=== PATIENT | male | born 1995 | race Caucasian/White ===

== ENCOUNTER 2016-06-29 05:52 | Emergency (ER) | payer SELFPAY ==
[~2016-06-29] VITALS: Ht 172.7 cm; Wt 65.8 kg
[~2016-06-29 05:52] MED LIST: ALBU8.5H4 IH; ALPR0.25 PO; BENZ-13 PO; CEFD300C3 PO; CHLO237L3 TP; DOXY100C2 PO; GUAI5LIQ3 PO; IBP800T PO; LORA-404 PO; LORA-726 PO; MECL25TA3 PO; MUPI15CR10 TP; Minocycline; PRD20T PO; SULF-222 PO; SULF1TAB35 PO; TRAM50TA2 PO
[2016-06-29 07:21] LABS: BASOPHILS # (AUTO) 0.1 10^3/uL (0.0-0.1); BASOPHILS % (AUTO) 1 % (0-10); EOSINOPHILS # (AUTO) 0.3 10^3/uL (0.0-0.3); EOSINOPHILS % (AUTO) 2 % (0-10); LYMPHOCYTES % (AUTO) 25 % (12-44); MEAN CORPUSCULAR HEMOGLOBIN 29 PG (25-34); MEAN CORPUSCULAR HGB CONC 34 G/DL (32-36); MEAN CORPUSCULAR VOLUME 86 FL (80-99); MEAN PLATELET VOLUME 9.4 FL (7.4-10.4); MONOCYTES # (AUTO) 1.2 X 10^3 (0.0-1.0); MONOCYTES % (AUTO) 9 % (0-12); NEUTROPHILS # (AUTO) 7.7 X 10^3 (1.8-7.8); NEUTROPHILS % (AUTO) 63 % (42-75); PLATELET COUNT 263 10^3/uL (130-400); RED BLOOD COUNT 5.42 10^6/uL (4.35-5.85); RED CELL DISTRIBUTION WIDTH 12.4 % (10.0-14.5); WHITE BLOOD COUNT 12.2 10^3/uL (4.3-11.0)
[2016-06-29 07:34] LABS: ALANINE AMINOTRANSFERASE 25 U/L (0-55); ALBUMIN 4.2 G/DL (3.2-4.5); ANION GAP 9 MMOL/L (5-14); ASPARTATE AMINO TRANSFERASE 17 U/L (5-34); BILIRUBIN,TOTAL 0.4 MG/DL (0.1-1.0); BLOOD UREA NITROGEN 16 MG/DL (7-18); BUN/CREATININE RATIO 19; CALCIUM 9.4 MG/DL (8.5-10.1); CARBON DIOXIDE 25 MMOL/L (21-32); CHLORIDE 104 MMOL/L (98-107); CREATININE SERUM 0.84 MG/DL (0.60-1.30); GFR ESTIMATED > 60; GLUCOSE 95 MG/DL (70-105); POTASSIUM 4.8 MMOL/L (3.6-5.0); SODIUM 138 MMOL/L (135-145); TOTAL PROTEIN 6.8 G/DL (6.4-8.2)
[2016-06-29 07:44] LABS: EOSINOPHILS % (MANUAL) 4 %; LYMPHOCYTES % (MANUAL) 30 %; NEUTROPHILS % (MANUAL) 53 %; REACTIVE LYMPHOCYTES 2 %
--- NOTE | 2016-06-29 07:53 | ED Lower Extremity ---
General Chief Complaint: Lower Extremity Stated Complaint: LEFT LEG PAIN FROM KNEE DOWN TO TOES Nursing Triage Note: PT TO ED 5 W/ C/O LT LOWER EXTREMITY PAIN FROM KNEE TO ANKLE ONSET AFTER BEING BIT BY A "FULL GROWN DEER TICK". NO OTHER KNOWN INJURY Nursing Sepsis Screen: No Definite Risk Source: patient Exam Limitations: no limitations History of Present Illness Time seen by provider: 07:47 Initial Comments The patient is a 21-year-old white male who presents complaining of pain from the left knee to the toes. There is been no injury. The pain began yesterday. He had previously been out in the [place] [employer] near [place]. He had found an adult tick on the medial aspect of his left leg just above the knee. There is a small area of their of redness and itching. He believes this to been a deer tick. He relates to fearing Lyme disease. Onset: last week Pain/Injury Location: left leg Method of Injury: unknown Allergies and Home Medications Allergies Coded Allergies: marijuana (Verified Allergy, Mild, 10/28/14) topiramate (Verified Allergy, Mild, 06/14/15) Home Medications Meclizine HCl 25 Mg Tablet, 25 MG PO Q6H PRN for VERTIGO, #20 Ref 0 Prescribed by: JACOB FARIAS on 05/01/152107 Sulfamethoxazole/Trimethoprim 1 Each Tablet, 1 EACH PO BID, #14 Prescribed by: DEMI HAYNES on 06/14/15 1944 Constitutional: see HPI EENTM: no symptoms reported Respiratory: no symptoms reported Cardiovascular: no symptoms reported Gastrointestinal: no symptoms reported Genitourinary: no symptoms reported Musculoskeletal: muscle pain Skin: no symptoms reported Psychiatric/Neurological: No Symptoms Reported Past Rjqfhlr-Xekrig-Ridtvc Hx Patient Social History Alcohol Use: Denies Use Recreational Drug Use: No Smoking Status: Current Everyday Smoker Type Used: Cigarettes, Electronic/Vapor 2nd Hand Smoke Exposure: Yes Recent Foreign Travel: No Contact w/Someone Who Travel: No Recent Infectious Disease Expo: No Seasonal Allergies Seasonal Allergies: No Surgeries HX Surgeries: Yes (HYDROCELE.) Respiratory Hx Respiratory Disorders: No Cardiovascular Hx Cardiac Disorders: No Neurological Hx Neurological Disorders: No Neurological Disorders: Headaches /Migraines Reproductive System Hx Reproductive Disorders: No Sexually Transmitted Disease: No Genitourinary Hx Genitourinary Disorders: No Gastrointestinal Hx Gastrointestinal Disorders: No Musculoskeletal Hx Musculoskeletal Disorders: No Endocrine Hx Endocrine Disorders: No HEENT HX ENT Disorders: No Cancer Hx Cancer: No Psychosocial Hx Psychiatric Problems: No Integumentary HX Skin/Integumentary Disorder: Yes (MRSA HX, BACK BROKE OUT SORES) Skin/Integumentary Disorders: Recent Skin Changes Blood Transfusions Hx Blood Disorders: No Family Medical History Significant Family History: No Pertinent Family Hx Physical Exam Vital Signs Vital Sign - Last 12Hours 06/29/16 06:35 Temp 98.1 Pulse 86 Resp 18 B/P (MAP) 124/91 Pulse Ox 97 O2 Delivery Room Air Capillary Refill : Less Than 3 Seconds General Appearance: WD/WN, no apparent distress HEENT: normal ENT inspection Cardiovascular: normal peripheral pulses, regular rate, rhythm, no edema, no gallop, no JVD, no murmur Respiratory: chest non-tender, lungs clear, normal breath sounds, no respiratory distress, no accessory muscle use Comments There is a small area of erythema with a central puncture just above the left knee on the medial thigh. This is consistent with a bite. There is no tenderness to palpation no erythema or swelling of the left leg. Progress/Results/Core Measures Results/Orders Lab Results Laboratory Tests Test 06/29/16 07:02 Range/Units White Blood Count 12.2 H 4.3-11.0 10^3/uL Red Blood Count 5.42 4.35-5.85 10^6/uL Hemoglobin 15.9 13.3-17.7 G/DL Hematocrit 47 40-54 % Mean Corpuscular Volume 86 80-99 FL Mean Corpuscular Hemoglobin 29 25-34 PG Mean Corpuscular Hemoglobin Concent 34 32-36 G/DL Red Cell Distribution Width 12.4 10.0-14.5 % Platelet Count 263 130-400 10^3/uL Mean Platelet Volume 9.4 7.4-10.4 FL Neutrophils (%) (Auto) 63 42-75 % Lymphocytes (%) (Auto) 25 12-44 % Monocytes (%) (Auto) 9 0-12 % Eosinophils (%) (Auto) 2 0-10 % Basophils (%) (Auto) 1 0-10 % Neutrophils # (Auto) 7.7 1.8-7.8 X 10^3 Lymphocytes # (Auto) 3.0 1.0-4.0 X 10^3 Monocytes # (Auto) 1.2 H 0.0-1.0 X 10^3 Eosinophils # (Auto) 0.3 0.0-0.3 10^3/uL Basophils # (Auto) 0.1 0.0-0.1 10^3/uL Neutrophils % (Manual) 53 % Lymphocytes % (Manual) 30 % Monocytes % (Manual) 11 % Eosinophils % (Manual) 4 % Reactive Lymphocytes 2 % Blood Morphology Comment N Sodium Level 138 135-145 MMOL/L Potassium Level 4.8 3.6-5.0 MMOL/L Chloride Level 104 98-107 MMOL/L Carbon Dioxide Level 25 21-32 MMOL/L Anion Gap 9 5-14 MMOL/L Blood Urea Nitrogen 16 7-18 MG/DL Creatinine 0.84 0.60-1.30 MG/DL Estimat Glomerular Filtration Rate > 60 BUN/Creatinine Ratio 19 Glucose Level 95 70-105 MG/DL Calcium Level 9.4 8.5-10.1 MG/DL Total Bilirubin 0.4 0.1-1.0 MG/DL Aspartate Amino Transf (AST/SGOT) 17 5-34 U/L Alanine Aminotransferase (ALT/SGPT) 25 0-55 U/L Alkaline Phosphatase 48 40-136 U/L Total Protein 6.8 6.4-8.2 G/DL Albumin 4.2 3.2-4.5 G/DL My Orders Orders - GUY MAYORGA MD Cbc With Automated Diff (06/29/16 06:49) Comprehensive Metabolic Panel (06/29/16 06:49) Manual Differential (06/29/16 07:02) Vital Signs/I&O Vital Sign - Last 12Hours 06/29/16 06:35 Temp 98.1 Pulse 86 Resp 18 B/P (MAP) 124/91 Pulse Ox 97 O2 Delivery Room Air Blood Pressure Mean: 102 Departure Impression Impression: Primary Impression: tick bite Disposition: 01 HOME, SELF-CARE Condition: Stable/Unchanged Departure-Patient Inst. Decision time for Depature: 07:52 Referrals: [facility] (PCP/Family) Primary Care Physician Add. Discharge Instructions: All discharge instructions reviewed with patient and/or family. Voiced understanding. Cortisone 10 cream to the bite area will be useful in relieving itching. Use ibuprofen 600 mg 4 times daily or naproxen 440 mg twice daily for pain. GUY MAYORGA MD June 29, 2016 07:53
[2016-06-29] MEDS ORDERED: IBUPROFEN 600 MG (MOTRIN) TAB PO ONE (08:00)
[2016-06-29 08:12] VITALS: BP 124/91
== END 2016-06-29 08:12 | disposition home or self-care (01) ==
LOC: EDUNIT# 05:52 → ER 05:54
DX: S80.862A Insect bite (nonvenomous), left lower leg, initial encounter (principal); F17.210 Nicotine dependence, cigarettes, uncomplicated; W57.XXXA Bitten or stung by nonvenomous insect and other nonvenomous arthropods, initial encounter; Y92.838 Other recreation area as the place of occurrence of the external cause; Y99.8 Other external cause status
CPT/HCPCS: 36415; 80053; 85007; 85027; 99282

== ENCOUNTER 2016-08-03 01:31 | Emergency (ER) | payer SELFPAY ==
[~2016-08-03] VITALS: Ht 172.7 cm; Wt 65.8 kg
--- NOTE | 2016-08-03 01:45 | ED Lower Extremity ---
General Chief Complaint: Lower Extremity Stated Complaint: LEFT ANKLE INJURY Nursing Triage Note: c/o ankle pain after roller skating Nursing Sepsis Screen: No Definite Risk Source: patient History of Present Illness Time seen by provider: 01:40 Initial Comments PT WAS ROLLERSKATING BACKWARDS AT THE [place]ATING [place] AND TWISTED LEFT ANKLE AND WENT DOWN, LANDING ON LEFT ANKLE OCCURRED EARLIER THIS EVENING AROUND 2100 TONIGHT NO PARESTHESIAS OR MOTOR DEFICITS NO OTHER INJURIES HAS SPRAINED THIS ANKLE IN THE PAST, BUT NO FRACTURES OR SURGERIES Allergies and Home Medications Allergies Coded Allergies: marijuana (Verified Allergy, Mild, 10/28/14) topiramate (Verified Allergy, Mild, 06/14/15) Home Medications No Active Prescriptions or Reported Meds Constitutional: no symptoms reported Musculoskeletal: see HPI Skin: no symptoms reported Psychiatric/Neurological: No Symptoms Reported Past Skvxdim-Ubtmhb-Kqmidw Hx Patient Social History Alcohol Use: Denies Use Recreational Drug Use: No Smoking Status: Current Everyday Smoker Type Used: Cigarettes, Electronic/Vapor 2nd Hand Smoke Exposure: Yes Recent Foreign Travel: No Contact w/Someone Who Travel: No Recent Infectious Disease Expo: No Seasonal Allergies Seasonal Allergies: No Surgeries HX Surgeries: Yes (HYDROCELE.) Respiratory Hx Respiratory Disorders: No Cardiovascular Hx Cardiac Disorders: No Neurological Hx Neurological Disorders: Yes Neurological Disorders: Headaches /Migraines Reproductive System Hx Reproductive Disorders: No Sexually Transmitted Disease: No Genitourinary Hx Genitourinary Disorders: No Gastrointestinal Hx Gastrointestinal Disorders: No Musculoskeletal Hx Musculoskeletal Disorders: No Endocrine Hx Endocrine Disorders: No HEENT HX ENT Disorders: No Cancer Hx Cancer: No Psychosocial Hx Psychiatric Problems: No Integumentary HX Skin/Integumentary Disorder: Yes (MRSA HX, BACK BROKE OUT SORES) Skin/Integumentary Disorders: Recent Skin Changes Blood Transfusions Hx Blood Disorders: No Family Medical History Significant Family History: No Pertinent Family Hx Physical Exam Vital Signs Vital Sign - Last 12Hours 08/03/16 01:36 Temp 98.2 Pulse 88 Resp 18 B/P (MAP) 127/79 Pulse Ox 98 Capillary Refill : Less Than 3 Seconds General Appearance: WD/WN, no apparent distress, other (PT HAS LEFT ANKLE WRAPPED IN AMANDA WRAP PRIOR TO ARRIVAL) HEENT: PERRL/EOMI Legs: left leg normal inspection Knees: left knee normal inspection Ankles: left ankle bone tenderness, left ankle limited range of motion, left ankle pain, left ankle soft tissue tenderness, left ankle swelling Feet: left foot normal inspection Neurologic/Tendon: normal sensation, normal motor functions, normal tendon functions 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, no motor/sensory deficits, alert, normal mood/affect, oriented x 3 Skin: normal color, warm/dry, tattoos/piercings Splinting and Joint Reduction : Splints: Air Stirrup [place] Progress/Results/Core Measures Results/Orders My Orders Orders - MIKALA LATHAM DO Ankle, Left, 3 Views (08/03/16 01:39) Vital Signs/I&O Vital Sign - Last 12Hours 08/03/16 01:36 Temp 98.2 Pulse 88 Resp 18 B/P (MAP) 127/79 Pulse Ox 98 Blood Pressure Mean: 95 Diagnostic Imaging Comments XRAYS LEFT ANKLE--NO ACUTE PROCESS, PENDING RADIOLOGIST REVIEW Reviewed: Reviewed by Me Departure Impression Impression: Primary Impression: Left ankle sprain Disposition: 01 HOME, SELF-CARE Condition: Stable Departure-Patient Inst. Referrals: [facility] (PCP/Family) Primary Care Physician Patient Instructions: AIRCAST, Ankle Sprain (DC) Add. Discharge Instructions: ICE TO AREA AT 20 MINUTE INTERVALS AMANDA WRAP AND SPLINT NEEDED FOR COMFORT TYLENOL AND MOTRIN NEEDED FOR PAIN FOLLOW UP WITH YOUR DR IN 1 WEEK IF NO BETTER All discharge instructions reviewed with patient and/or family. Voiced understanding. Scripts No Active Prescriptions or Reported Meds MIKALA LATHAM DO Aug 03, 2016 01:45
[2016-08-03 02:02] VITALS: BP 127/79
--- NOTE | 2016-08-03 07:44 | Diagnostic Imaging Report ---
INDICATION: Injury with pain. FINDINGS: Soft tissue swelling about the ankle laterally present. The distal fibula, the medial, lateral, and posterior malleoli, the plafond and talar dome are all intact. The base of the fifth metatarsal is intact. The remaining hind and mid foot visualized unremarkable. IMPRESSION: Swelling, however no fracture demonstrated. Dictated by: Dictated on workstation # [id number]
--- OUTSIDE RECORDS SUMMARY | 2016-08-05 16:20 | XMS REPORT | Continuity of Care Document ---
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 05/11/2009 MORRO VALDIVIA APRN 737.30 SCOLIOSIS 05/11/2009 724.2 Lower Back Pain 05/11/2009 737.30 SCOLIOSIS 05/11/2009 724.2 Lower Back Pain 05/11/2009 737.30 SCOLIOSIS 05/11/2009 724.2 Lower Back Pain 05/11/2009 737.30 SCOLIOSIS 05/11/2009 724.2 Lower Back Pain 05/11/2009 737.30 SCOLIOSIS 05/11/2009 JUSTUS FISHER EEL, PJ A 724.2 Lower Back Pain 05/11/2009 JUSTUS DEGROOT, PJ A 737.30 SCOLIOSIS 05/11/2009 ABRAMS DO, JOSIE K 724.2 Lower Back Pain 05/11/2009 ABRAMS DO, JOSIE K 737.30 SCOLIOSIS 05/11/2009 ABRAMS DO, JOSIE K 724.2 Lower Back Pain 05/11/2009 ABRAMS DO, JOSIE K 737.30 SCOLIOSIS 05/11/2009 ABRAMS DO, JOSIE K 724.2 Lower Back Pain 05/11/2009 ABRAMS DO, JOSIE K 737.30 SCOLIOSIS 05/11/2009 MARVIN FISHER EEL, LUI R 724.2 Lower Back Pain 05/11/2009 MARVIN FISHER EEL, LUI R 737.30 SCOLIOSIS 05/11/2009 ABRAMS DO, JOSIE K 724.2 Lower Back Pain 05/11/2009 ABRAMS DO, JOSIE K 737.30 SCOLIOSIS 05/11/2009 AUDIE STACK APRN 724.2 Lower Back Pain 05/11/2009 AUDIE STACK APRN 737.30 SCOLIOSIS 05/11/2009 AUDEI STACK APRN 724.2 Lower Back Pain 05/11/2009 AUDIE STACK APRN T 737.30 SCOLIOSIS 05/11/2009 KWABENA KEY MD 724.2 Lower Back Pain 05/11/2009 KWABENA KEY MD 737.30 SCOLIOSIS 05/22/2009 JUSTUS DEGROOT PJ A 786.09 Respiratory Abnormalities, Other 05/22/2009 786.09 Respiratory Abnormalities, Other 05/22/2009 786.09 Respiratory Abnormalities, Other 05/22/2009 786.09 Respiratory Abnormalities, Other 05/22/2009 786.09 Respiratory Abnormalities, Other 05/22/2009 ABRAMS DO, JOSIE K 786.09 Respiratory Abnormalities, Other 05/22/2009 MORRO VALDIVIA APRN R 786.09 Respiratory Abnormalities, Other 05/22/2009 786.09 Respiratory Abnormalities, Other 05/22/2009 786.09 Respiratory Abnormalities, Other 05/22/2009 786.09 Respiratory Abnormalities, Other 05/22/2009 786.09 Respiratory Abnormalities, Other 05/22/2009 IFRAH JEROME APRNYL A 786.09 Respiratory Abnormalities, Other 05/22/2009 ABRAMS DO, JOSIE K 786.09 Respiratory Abnormalities, Other 05/22/2009 ABRAMS DO, JOSIE K 786.09 Respiratory Abnormalities, Other 05/22/2009 ABRAMS DO, JOSIE K 786.09 Respiratory Abnormalities, Other 05/22/2009 MARVIN DEGROOT LUI R 786.09 Respiratory Abnormalities, Other 05/22/2009 ABRAMS DO, JOISE K 786.09 Respiratory Abnormalities, Other 05/22/2009 AUDIE STACK APRN 786.09 Respiratory Abnormalities, Other 05/22/2009 AUDIE STACK APRN 786.09 Respiratory Abnormalities, Other 05/22/2009 KWABENA KEY MD 786.09 Respiratory Abnormalities, Other 05/29/2009 IFRAH JEROME APRNYL A 461.9 Sinusitis Acute 05/29/2009 461.9 Sinusitis Acute 05/29/2009 461.9 Sinusitis Acute 05/29/2009 461.9 Sinusitis Acute 05/29/2009 461.9 Sinusitis Acute 05/29/2009 ABRAMS DO, JOSEI K 461.9 Sinusitis Acute 05/29/2009 MORRO VALDIVIA APRN 461.9 Sinusitis Acute 05/29/2009 461.9 Sinusitis Acute 05/29/2009 461.9 Sinusitis Acute 05/29/2009 461.9 Sinusitis Acute 05/29/2009 461.9 Sinusitis Acute 05/29/2009 IFRAH JEROME APRNYL A 461.9 Sinusitis Acute 05/29/2009 ABRAMS DO, JOSIE K 461.9 Sinusitis Acute 05/29/2009 ABRAMS DO, JOSIE K 461.9 Sinusitis Acute 05/29/2009 ABRAMS DO, JOSIE K 461.9 Sinusitis Acute 05/29/2009 WESLEY WONG APRNINA R 461.9 Sinusitis Acute 05/29/2009 ABRAMS DO, JOSIE K 461.9 Sinusitis Acute 05/29/2009 AUDIE STACK APRN 461.9 Sinusitis Acute 05/29/2009 AUDIE STACK APRN 461.9 Sinusitis Acute 05/29/2009 KWABENA KEY MD 461.9 Sinusitis Acute 06/14/2009 JUSTUS DEGROOT, PJ A 535.00 Acute Gastritis, Without Mention Of Hemorrhage 06/14/2009 535.00 Acute Gastritis, Without Mention Of Hemorrhage 06/14/2009 535.00 Acute Gastritis, Without Mention Of Hemorrhage 06/14/2009 535.00 Acute Gastritis, Without Mention Of Hemorrhage 06/14/2009 535.00 Acute Gastritis, Without Mention Of Hemorrhage 06/14/2009 ABRAMS DO, JOSIE K 535.00 Acute Gastritis, Without Mention Of Hemorrhage 06/14/2009 VALDIVIA FISHER EEL, MORRO R 535.00 Acute Gastritis, Without Mention Of Hemorrhage 06/14/2009 535.00 Acute Gastritis, Without Mention Of Hemorrhage 06/14/2009 535.00 Acute Gastritis, Without Mention Of Hemorrhage 06/14/2009 535.00 Acute Gastritis, Without Mention Of Hemorrhage 06/14/2009 535.00 Acute Gastritis, Without Mention Of Hemorrhage 06/14/2009 PJ JEROME APRN A 535.00 Acute Gastritis, Without Mention Of Hemorrhage 06/14/2009 ABRAMS DO, JOSIE K 535.00 Acute Gastritis, Without Mention Of Hemorrhage 06/14/2009 ABRAMS DO, JOSIE K 535.00 Acute Gastritis, Without Mention Of Hemorrhage 06/14/2009 ABRAMS DO, JOSIE K 535.00 Acute Gastritis, Without Mention Of Hemorrhage 06/14/2009 MARVIN FISHER EEL, LUI R 535.00 Acute Gastritis, Without Mention Of Hemorrhage 06/14/2009 ABRAMS DO, JOSIE K 535.00 Acute Gastritis, Without Mention Of Hemorrhage 06/14/2009 AUDIE STACK APRN 535.00 Acute Gastritis, Without Mention Of Hemorrhage 06/14/2009 AUDIE STACK APRN 535.00 Acute Gastritis, Without Mention Of Hemorrhage 06/14/2009 KWABENA KEY MD 535.00 Acute Gastritis, Without Mention Of Hemorrhage 06/19/2009 PJ JEROME APRN A 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, Due To Oils And Greases 06/19/2009 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, Due To Oils And Greases 06/19/2009 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, Due To Oils And Greases 06/19/2009 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, Due To Oils And Greases 06/19/2009 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, Due To Oils And Greases 06/19/2009 ABRAMS DO, JOSIE K 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, Due To Oils And Greases 06/19/2009 MORRO VALDIVIA APRN R 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, Due To Oils And Greases 06/19/2009 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, Due To Oils And Greases 06/19/2009 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, Due To Oils And Greases 06/19/2009 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, Due To Oils And Greases 06/19/2009 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, Due To Oils And Greases 06/19/2009 PJ JEROME APRN 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, Due To Oils And Greases 06/19/2009 ABRAMS DOTONYA K 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, Due To Oils And Greases 06/19/2009 ABRAMS DOTONYA K 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, Due To Oils And Greases 06/19/2009 ABRAMS DOTONYA K 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, Due To Oils And Greases 06/19/2009 LUI WONG APRN R 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, Due To Oils And Greases 06/19/2009 ABRAMS JOSIE RODRIGUEZ K 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, Due To Oils And Greases 06/19/2009 AUDIE STACK APRN 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, Due To Oils And Greases 06/19/2009 AUDIE STACK APRN 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, Due To Oils And Greases 06/19/2009 KWABENA KEY MD 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, Due To Oils And Greases 06/24/2009 PJ JEROME APRN 057.0 Erythema Infectiosum [fifth Disease] 06/24/2009 057.0 Erythema Infectiosum [fifth Disease] 06/24/2009 057.0 Erythema Infectiosum [fifth Disease] 06/24/2009 057.0 Erythema Infectiosum [fifth Disease] 06/24/2009 057.0 Erythema Infectiosum [fifth Disease] 06/24/2009 ABRAMS DO, JOSIE K 057.0 Erythema Infectiosum [fifth Disease] 06/24/2009 MORRO VALDIVIA APRN R 057.0 Erythema Infectiosum [fifth Disease] 06/24/2009 057.0 Erythema Infectiosum [fifth Disease] 06/24/2009 057.0 Erythema Infectiosum [fifth Disease] 06/24/2009 057.0 Erythema Infectiosum [fifth Disease] 06/24/2009 057.0 Erythema Infectiosum [fifth Disease] 06/24/2009 PJ JEROME APRN A 057.0 Erythema Infectiosum [fifth Disease] 06/24/2009 ABRAMS DO, JOSIE K 057.0 Erythema Infectiosum [fifth Disease] 06/24/2009 ABRAMS DO, JOSIE K 057.0 Erythema Infectiosum [fifth Disease] 06/24/2009 ABRAMS DO, JOSIE K 057.0 Erythema Infectiosum [fifth Disease] 06/24/2009 LUI WONG APRN 057.0 Erythema Infectiosum [fifth Disease] 06/24/2009 ABRAMS DO, JOSIE K 057.0 Erythema Infectiosum [fifth Disease] 06/24/2009 AUDIE STACK APRN 057.0 Erythema Infectiosum [fifth Disease] 06/24/2009 AUDIE STACK APRN 057.0 Erythema Infectiosum [fifth Disease] 06/24/2009 KWABENA KEY MD 057.0 Erythema Infectiosum [fifth Disease] 10/04/2009 PJ JEROME APRN A 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 10/04/2009 PJ JREOME APRN 919.4 Superficial Injury Of Other, Multiple, And Unspecified Sites, Insect Bite, Nonvenomous, Without Mention Of Infection 10/04/2009 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 10/04/2009 919.4 Superficial Injury Of Other, Multiple, And Unspecified Sites , Insect Bite, Nonvenomous, Without Mention Of Infection 10/04/2009 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 10/04/2009 919.4 Superficial Injury Of Other, Multiple, And Unspecified Sites , Insect Bite, Nonvenomous, Without Mention Of Infection 10/04/2009 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 10/04/2009 919.4 Superficial Injury Of Other, Multiple, And Unspecified Sites , Insect Bite, Nonvenomous, Without Mention Of Infection 10/04/2009 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 10/04/2009 919.4 Superficial Injury Of Other, Multiple, And Unspecified Sites , Insect Bite, Nonvenomous, Without Mention Of Infection 10/04/2009 TONY ABRAMS DOA K 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 10/04/2009 TONY ABRAMS DOA K 919.4 Superficial Injury Of Other, Multiple, And Unspecified Sites, Insect Bite, Nonvenomous, Without Mention Of Infection 10/04/2009 MARSHALL VALDIVIA APRNIA R 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 10/04/2009 MORRO VALDIVIA APRN R 919.4 Superficial Injury Of Other, Multiple , And Unspecified Sites, Insect Bite, Nonvenomous, Without Mention Of Infection 10/04/2009 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 10/04/2009 919.4 Superficial Injury Of Other, Multiple, And Unspecified Sites , Insect Bite, Nonvenomous, Without Mention Of Infection 10/04/2009 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 10/04/2009 919.4 Superficial Injury Of Other, Multiple, And Unspecified Sites , Insect Bite, Nonvenomous, Without Mention Of Infection 10/04/2009 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 10/04/2009 919.4 Superficial Injury Of Other, Multiple, And Unspecified Sites , Insect Bite, Nonvenomous, Without Mention Of Infection 10/04/2009 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 10/04/2009 919.4 Superficial Injury Of Other, Multiple, And Unspecified Sites , Insect Bite, Nonvenomous, Without Mention Of Infection 10/04/2009 JUSTUS FISHER EEL, PJ A 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 10/04/2009 JUSTUS FISHER EEL, PJ A 919.4 Superficial Injury Of Other, Multiple, And Unspecified Sites, Insect Bite, Nonvenomous, Without Mention Of Infection 10/04/2009 TONY ABRAMS DOA K 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 10/04/2009 TONY ABRAMS DOA K 919.4 Superficial Injury Of Other, Multiple, And Unspecified Sites, Insect Bite, Nonvenomous, Without Mention Of Infection 10/04/2009 JOSIE ABRAMS DO K 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 10/04/2009 ABRAMS TONY RODRIGUEZA K 919.4 Superficial Injury Of Other, Multiple, And Unspecified Sites, Insect Bite, Nonvenomous, Without Mention Of Infection 10/04/2009 JOSIE ABRAMS DO K 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 10/04/2009 ABRAMS TONY RODRIGUEZA K 919.4 Superficial Injury Of Other, Multiple, And Unspecified Sites, Insect Bite, Nonvenomous, Without Mention Of Infection 10/04/2009 MARVIN DEGROOT, LUI R 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 10/04/2009 WESLEY WONG APRNINA R 919.4 Superficial Injury Of Other, Multiple, And Unspecified Sites, Insect Bite, Nonvenomous, Without Mention Of Infection 10/04/2009 JOSIE ABRAMS DO K 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 10/04/2009 JOSIE ABRAMS DO K 919.4 Superficial Injury Of Other, Multiple, And Unspecified Sites, Insect Bite, Nonvenomous, Without Mention Of Infection 10/04/2009 AUDIE STACK APRN 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 10/04/2009 AUDIE STACK APRN 919.4 Superficial Injury Of Other, Multiple, And Unspecified Sites, Insect Bite, Nonvenomous, Without Mention Of Infection 10/04/2009 AUDIE STACK APRN 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 10/04/2009 AUDIE STACK APRN 919.4 Superficial Injury Of Other, Multiple, And Unspecified Sites, Insect Bite, Nonvenomous, Without Mention Of Infection 10/04/2009 KWABENA KEY MD 427.39 OTHER SPECIFIED CONGENITAL ANOMALIES OF SKIN 10/04/2009 KWABENA KEY MD 499.4 Superficial Injury Of Other, Multiple, And Unspecified Sites, Insect Bite, Nonvenomous, Without Mention Of Infection 10/06/2009 PJ JEROME APRN 682.9 Other Cellulitis And Abscess, Unspecified Site 10/06/2009 682.9 Other Cellulitis And Abscess, Unspecified Site 10/06/2009 682.9 Other Cellulitis And Abscess, Unspecified Site 10/06/2009 682.9 Other Cellulitis And Abscess, Unspecified Site 10/06/2009 682.9 Other Cellulitis And Abscess, Unspecified Site 10/06/2009 TONY ABRAMS DOA K 682.9 Other Cellulitis And Abscess, Unspecified Site 10/06/2009 MORRO VALDIVIA APRN R 682.9 Other Cellulitis And Abscess, Unspecified Site 10/06/2009 682.9 Other Cellulitis And Abscess, Unspecified Site 10/06/2009 682.9 Other Cellulitis And Abscess, Unspecified Site 10/06/2009 682.9 Other Cellulitis And Abscess, Unspecified Site 10/06/2009 682.9 Other Cellulitis And Abscess, Unspecified Site 10/06/2009 PJ JEROME APRN A 682.9 Other Cellulitis And Abscess, Unspecified Site 10/06/2009 TONY ABRAMS DOA K 682.9 Other Cellulitis And Abscess, Unspecified Site 10/06/2009 TONY ABRAMS DOA K 682.9 Other Cellulitis And Abscess, Unspecified Site 10/06/2009 JOSE ALBERTO RODRIGUEZ JOSIE K 682.9 Other Cellulitis And Abscess, Unspecified Site 10/06/2009 LUI WONG APRN R 682.9 Other Cellulitis And Abscess, Unspecified Site 10/06/2009 TONY ABRAMS DOA K 682.9 Other Cellulitis And Abscess, Unspecified Site 10/06/2009 AUDIE STACK APRN 682.9 Other Cellulitis And Abscess, Unspecified Site 10/06/2009 AUDIE STACK APRN 682.9 Other Cellulitis And Abscess, Unspecified Site 10/06/2009 KWABENA KEY MD 682.9 Other Cellulitis And Abscess, Unspecified Site 10/20/2009 PJ JEROME APRN A 789.00 Abdominal Pain Unspecified Site 10/20/2009 789.00 Abdominal Pain Unspecified Site 10/20/2009 789.00 Abdominal Pain Unspecified Site 10/20/2009 789.00 Abdominal Pain Unspecified Site 10/20/2009 789.00 Abdominal Pain Unspecified Site 10/20/2009 TONY ABRAMS DOA K 789.00 Abdominal Pain Unspecified Site 10/20/2009 MORRO VALDIVIA APRN 789.00 Abdominal Pain Unspecified Site 10/20/2009 789.00 Abdominal Pain Unspecified Site 10/20/2009 789.00 Abdominal Pain Unspecified Site 10/20/2009 789.00 Abdominal Pain Unspecified Site 10/20/2009 789.00 Abdominal Pain Unspecified Site 10/20/2009 PJ JEROME APRN A 789.00 Abdominal Pain Unspecified Site 10/20/2009 ABRAMS DO, JOSIE K 789.00 Abdominal Pain Unspecified Site 10/20/2009 ABRAMS DO, JOSIE K 789.00 Abdominal Pain Unspecified Site 10/20/2009 ABRAMS DO, JOSIE K 789.00 Abdominal Pain Unspecified Site 10/20/2009 LUI WONG APRN R 789.00 Abdominal Pain Unspecified Site 10/20/2009 ABRAMS DO, JOSIE K 789.00 Abdominal Pain Unspecified Site 10/20/2009 AUDIE STACK APRN 789.00 Abdominal Pain Unspecified Site 10/20/2009 AUDIE STACK APRN 789.00 Abdominal Pain Unspecified Site 10/20/2009 KWABENA KEY MD 789.00 Abdominal Pain Unspecified Site 11/06/2009 PJ JEROME APRN A 787.01 Nausea With Vomiting 11/06/2009 787.01 Nausea With Vomiting 11/06/2009 787.01 Nausea With Vomiting 11/06/2009 787.01 Nausea With Vomiting 11/06/2009 787.01 Nausea With Vomiting 11/06/2009 ABRAMS DO, JOSIE K 787.01 Nausea With Vomiting 11/06/2009 MORRO VALDIVIA APRN 787.01 Nausea With Vomiting 11/06/2009 787.01 Nausea With Vomiting 11/06/2009 787.01 Nausea With Vomiting 11/06/2009 787.01 Nausea With Vomiting 11/06/2009 787.01 Nausea With Vomiting 11/06/2009 IFRAH JEROME APRNYL A 787.01 Nausea With Vomiting 11/06/2009 ABRAMS DO, JOSIE K 787.01 Nausea With Vomiting 11/06/2009 ABRAMS DO, JOSIE K 787.01 Nausea With Vomiting 11/06/2009 ABRAMS DO, JOSIE K 787.01 Nausea With Vomiting 11/06/2009 WESLEY WONG APRNINA R 787.01 Nausea With Vomiting 11/06/2009 ABRAMS DO, JOSIE K 787.01 Nausea With Vomiting 11/06/2009 AUDIE STACK APRN 787.01 Nausea With Vomiting 11/06/2009 AUDIE STACK APRN 787.01 Nausea With Vomiting 11/06/2009 KWABENA KEY MD 787.01 Nausea With Vomiting 11/20/2009 PJ JEROME APRN A 786.2 Cough 11/20/2009 786.2 Cough 11/20/2009 786.2 Cough 11/20/2009 786.2 Cough 11/20/2009 786.2 Cough 11/20/2009 ABRAMS DO, JOSIE K 786.2 Cough 11/20/2009 MORRO VALDIVIA APRN R 786.2 Cough 11/20/2009 786.2 Cough 11/20/2009 786.2 Cough 11/20/2009 786.2 Cough 11/20/2009 786.2 Cough 11/20/2009 PJ JEROME APRN A 786.2 Cough 11/20/2009 ABRAMS DO, JOSIE K 786.2 Cough 11/20/2009 ABRAMS DO, JOSIE K 786.2 Cough 11/20/2009 ABRAMS DO, JOSIE K 786.2 Cough 11/20/2009 LUI WONG APRN 786.2 Cough 11/20/2009 ABRAMS DO, JOSIE K 786.2 Cough 11/20/2009 AUDIE STACK APRN 786.2 Cough 11/20/2009 AUDIE STACK APRN 786.2 Cough 11/20/2009 KWABENA KEY MD 786.2 Cough 12/28/2009 PJ JEROME APRN A 462 Pharyngitis Acute 12/28/2009 462 Pharyngitis Acute 12/28/2009 462 Pharyngitis Acute 12/28/2009 462 Pharyngitis Acute 12/28/2009 462 Pharyngitis Acute 12/28/2009 ABRAMS DO, JOSIE K 462 Pharyngitis Acute 12/28/2009 MORRO VALDIVIA APRN R 462 Pharyngitis Acute 12/28/2009 462 Pharyngitis Acute 12/28/2009 462 Pharyngitis Acute 12/28/2009 462 Pharyngitis Acute 12/28/2009 462 Pharyngitis Acute 12/28/2009 PJ JEROME APRN A 462 Pharyngitis Acute 12/28/2009 ABRAMS DO, JOSIE K 462 Pharyngitis Acute 12/28/2009 ABRAMS DO, JOSIE K 462 Pharyngitis Acute 12/28/2009 ABRAMS DO, JOSIE K 462 Pharyngitis Acute 12/28/2009 LUI WONG APRN 462 Pharyngitis Acute 12/28/2009 ABRAMS DO, JOSIE K 462 Pharyngitis Acute 12/28/2009 AUDIE STACK APRN 462 Pharyngitis Acute 12/28/2009 AUDIE STACK APRN 462 Pharyngitis Acute 12/28/2009 KWABENA KEY MD 462 Pharyngitis Acute 01/10/2010 PJ JEROME APRN A V65.2 Person Feigning Illness 01/10/2010 V65.2 Person Feigning Illness 01/10/2010 V65.2 Person Feigning Illness 01/10/2010 V65.2 Person Feigning Illness 01/10/2010 V65.2 Person Feigning Illness 01/10/2010 ABRAMS DO, JOSIE K V65.2 Person Feigning Illness 01/10/2010 MORRO VALDIVIA APRN R V65.2 Person Feigning Illness 01/10/2010 V65.2 Person Feigning Illness 01/10/2010 V65.2 Person Feigning Illness 01/10/2010 V65.2 Person Feigning Illness 01/10/2010 V65.2 Person Feigning Illness 01/10/2010 IFRAH JEROME APRNYL A V65.2 Person Feigning Illness 01/10/2010 ABRAMS DO, JOSIE K V65.2 Person Feigning Illness 01/10/2010 ABRAMS DO, JOSIE K V65.2 Person Feigning Illness 01/10/2010 ABRAMS DO, JOSIE K V65.2 Person Feigning Illness 01/10/2010 LUI WONG APRN R V65.2 Person Feigning Illness 01/10/2010 ABRAMS DO, JOSIE K V65.2 Person Feigning Illness 01/10/2010 AUDIE STACK APRN V65.2 Person Feigning Illness 01/10/2010 AUDIE STACK APRN V65.2 Person Feigning Illness 01/10/2010 KWABENA EKY MD V65.2 Person Feigning Illness 02/15/2010 PJ JEROME APRN 466.0 Acute Bronchitis 02/15/2010 466.0 Acute Bronchitis 02/15/2010 466.0 Acute Bronchitis 02/15/2010 466.0 Acute Bronchitis 02/15/2010 466.0 Acute Bronchitis 02/15/2010 JOSE ALBERTO RODRIGUEZ JOSIE K 466.0 Acute Bronchitis 02/15/2010 MORRO VALDIVIA APRN 466.0 Acute Bronchitis 02/15/2010 466.0 Acute Bronchitis 02/15/2010 466.0 Acute Bronchitis 02/15/2010 466.0 Acute Bronchitis 02/15/2010 466.0 Acute Bronchitis 02/15/2010 PJ JEROME APRN A 466.0 Acute Bronchitis 02/15/2010 ABRAMS DO JOSIE K 466.0 Acute Bronchitis 02/15/2010 ABRAMS DO, JOSIE K 466.0 Acute Bronchitis 02/15/2010 ABRAMS DO, JOSIE K 466.0 Acute Bronchitis 02/15/2010 LUI WONG APRN 466.0 Acute Bronchitis 02/15/2010 ABRAMS DO, JOSIE K 466.0 Acute Bronchitis 02/15/2010 AUDIE STACK APRN 466.0 Acute Bronchitis 02/15/2010 AUDIE STACK APRN T 466.0 Acute Bronchitis 02/15/2010 SHAHID MARCH, KWABENA 466.0 Acute Bronchitis 04/02/2010 PJ JEROME APRN 789.07 Abdominal Pain Generalized 04/02/2010 789.07 Abdominal Pain Generalized 04/02/2010 789.07 Abdominal Pain Generalized 04/02/2010 789.07 Abdominal Pain Generalized 04/02/2010 789.07 Abdominal Pain Generalized 04/02/2010 JOSE ALBERTO RODRIGUEZ JOSIE K 789.07 Abdominal Pain Generalized 04/02/2010 MORRO VALDIVIA APRN 789.07 Abdominal Pain Generalized 04/02/2010 789.07 Abdominal Pain Generalized 04/02/2010 789.07 Abdominal Pain Generalized 04/02/2010 789.07 Abdominal Pain Generalized 04/02/2010 789.07 Abdominal Pain Generalized 04/02/2010 PJ JEROME APRN 789.07 Abdominal Pain Generalized 04/02/2010 ABRAMS DO JOSIE K 789.07 Abdominal Pain Generalized 04/02/2010 ABRAMS DO JOSIE K 789.07 Abdominal Pain Generalized 04/02/2010 ABRAMS DO, JOSIE K 789.07 Abdominal Pain Generalized 04/02/2010 LUI WONG APRN R 789.07 Abdominal Pain Generalized 04/02/2010 ABRAMS TONY RODRIGUEZA K 789.07 Abdominal Pain Generalized 04/02/2010 AUDIE STACK APRN 789.07 Abdominal Pain Generalized 04/02/2010 AUDIE STACK APRN 789.07 Abdominal Pain Generalized 04/02/2010 KWABENA KEY MD 789.07 Abdominal Pain Generalized 06/12/2010 PJ JEROME APRN V58.69 Long-term (current) Use Of Other Medications 06/12/2010 V58.69 Long-term (current) Use Of Other Medications 06/12/2010 V58.69 Long-term (current) Use Of Other Medications 06/12/2010 V58.69 Long-term (current) Use Of Other Medications 06/12/2010 V58.69 Long-term (current) Use Of Other Medications 06/12/2010 JOSIE ABRAMS DO V58.69 Long-term (current) Use Of Other Medications 06/12/2010 MORRO VALDIVIA APRN V58.69 Long-term (current) Use Of Other Medications 06/12/2010 V58.69 Long-term (current) Use Of Other Medications 06/12/2010 V58.69 Long-term (current) Use Of Other Medications 06/12/2010 V58.69 Long-term (current) Use Of Other Medications 06/12/2010 V58.69 Long-term (current) Use Of Other Medications 06/12/2010 PJ JEROME APRN V58.69 Long-term (current) Use Of Other Medications 06/12/2010 TONY ABRAMS DOA K V58.69 Long-term (current) Use Of Other Medications 06/12/2010 ABRAMS TONY RODRIGUEZA K V58.69 Long-term (current) Use Of Other Medications 06/12/2010 TONY ABRAMS DOA K V58.69 Long-term (current) Use Of Other Medications 06/12/2010 LUI WONG APRN V58.69 Long-term (current) Use Of Other Medications 06/12/2010 TONY ABRAMS DOA K V58.69 Long-term (current) Use Of Other Medications 06/12/2010 AUDIE STACK APRN V58.69 Long-term (current) Use Of Other Medications 06/12/2010 AUDIE STACK APRN V58.69 Long-term (current) Use Of Other Medications 06/12/2010 KWABENA KEY MD V58.69 Long-term (current) Use Of Other Medications 10/01/2010 PJ JEROME APRN A 783.5 Polydipsia 10/01/2010 783.5 Polydipsia 10/01/2010 783.5 Polydipsia 10/01/2010 783.5 Polydipsia 10/01/2010 783.5 Polydipsia 10/01/2010 ABRAMS DO, JOSIE K 783.5 Polydipsia 10/01/2010 MORRO VALDIVIA APRN R 783.5 Polydipsia 10/01/2010 783.5 Polydipsia 10/01/2010 783.5 Polydipsia 10/01/2010 783.5 Polydipsia 10/01/2010 783.5 Polydipsia 10/01/2010 PJ JEROME APRN A 783.5 Polydipsia 10/01/2010 ABRAMS DO, JOSIE K 783.5 Polydipsia 10/01/2010 ABRAMS DO, JOSIE K 783.5 Polydipsia 10/01/2010 ABRAMS DO, JOSIE K 783.5 Polydipsia 10/01/2010 LUI WONG APRN R 783.5 Polydipsia 10/01/2010 ABRAMS DO, JOSIE K 783.5 Polydipsia 10/01/2010 AUDIE STACK APRN 783.5 Polydipsia 10/01/2010 AUDIE STACK APRN 783.5 Polydipsia 10/01/2010 KWABENA KEY MD 783.5 Polydipsia 10/23/2010 PJ JEROME APRN A 079.99 Viral Syndrome 10/23/2010 PJ JEROME APRN A V04.81 Flu Dx (p-free Age 3 And Above) 10/23/2010 079.99 Viral Syndrome 10/23/2010 V04.81 Flu Dx (p-free Age 3 And Above) 10/23/2010 079.99 Viral Syndrome 10/23/2010 V04.81 Flu Dx (p-free Age 3 And Above) 10/23/2010 079.99 Viral Syndrome 10/23/2010 V04.81 Flu Dx (p-free Age 3 And Above) 10/23/2010 079.99 Viral Syndrome 10/23/2010 V04.81 Flu Dx (p-free Age 3 And Above) 10/23/2010 JOSIE ABRAMS DO K 079.99 Viral Syndrome 10/23/2010 ABRAMS , JOSIE K V04.81 Flu Dx (p-free Age 3 And Above) 10/23/2010 MARSHALL VALDIVIA APRNIA R 079.99 Viral Syndrome 10/23/2010 SKIP QUINONESNADILSONMORRO R V04.81 Flu Dx (p-free Age 3 And Above) 10/23/2010 079.99 Viral Syndrome 10/23/2010 V04.81 Flu Dx (p-free Age 3 And Above) 10/23/2010 079.99 Viral Syndrome 10/23/2010 V04.81 Flu Dx (p-free Age 3 And Above) 10/23/2010 079.99 Viral Syndrome 10/23/2010 V04.81 Flu Dx (p-free Age 3 And Above) 10/23/2010 079.99 Viral Syndrome 10/23/2010 V04.81 Flu Dx (p-free Age 3 And Above) 10/23/2010 IFRAH JEROME APRNYL A 079.99 Viral Syndrome 10/23/2010 JUSTUS DEGROOT, PJ A V04.81 Flu Dx (p-free Age 3 And Above) 10/23/2010 JOSIE ABRAMS DO 079.99 Viral Syndrome 10/23/2010 JOSIE ABRAMS DO K V04.81 Flu Dx (p-free Age 3 And Above) 10/23/2010 JOSIE ABRAMS DO K 079.99 Viral Syndrome 10/23/2010 ABRAMS TONY RODRIGUEZA K V04.81 Flu Dx (p-free Age 3 And Above) 10/23/2010 TONY ABRAMS DOA K 079.99 Viral Syndrome 10/23/2010 ABRAMS TONY RODRIGUEZA K V04.81 Flu Dx (p-free Age 3 And Above) 10/23/2010 WESLEY WONG APRNINA R 079.99 Viral Syndrome 10/23/2010 WESLEY WONG APRNINA R V04.81 Flu Dx (p-free Age 3 And Above) 10/23/2010 JOSIE ABRAMS DO 079.99 Viral Syndrome 10/23/2010 TONY ABRAMS DOA Mayuri V04.81 Flu Dx (p-free Age 3 And Above) 10/23/2010 AUDIE STACK APRN 079.99 Viral Syndrome 10/23/2010 AUDIE STACK APRN V04.81 Flu Dx (p-free Age 3 And Above) 10/23/2010 AUDIE STACK APRN 079.99 Viral Syndrome 10/23/2010 AUDIE STACK APRN V04.81 Flu Dx (p-free Age 3 And Above) 10/23/2010 KWABENA KEY MD 079.99 Viral Syndrome 10/23/2010 KWABENA KEY MD V04.81 Flu Dx (p-free Age 3 And Above) 11/20/2010 PJ JEROME APRN 132.0 Pediculus Capitis (head Louse) 11/20/2010 132.0 Pediculus Capitis (head Louse) 11/20/2010 132.0 Pediculus Capitis (head Louse) 11/20/2010 132.0 Pediculus Capitis (head Louse) 11/20/2010 132.0 Pediculus Capitis (head Louse) 11/20/2010 TONY ABRAMS DOA K 132.0 Pediculus Capitis (head Louse) 11/20/2010 MORRO VALDIVIA APRN 132.0 Pediculus Capitis (head Louse) 11/20/2010 132.0 Pediculus Capitis (head Louse) 11/20/2010 132.0 Pediculus Capitis (head Louse) 11/20/2010 132.0 Pediculus Capitis (head Louse) 11/20/2010 132.0 Pediculus Capitis (head Louse) 11/20/2010 PJ JEROME APRN A 132.0 Pediculus Capitis (head Louse) 11/20/2010 ABRAMS DO JOSIE K 132.0 Pediculus Capitis (head Louse) 11/20/2010 ABRAMS DO JOSIE K 132.0 Pediculus Capitis (head Louse) 11/20/2010 ABRAMS DO JOSIE K 132.0 Pediculus Capitis (head Louse) 11/20/2010 LUI WONG APRN 132.0 Pediculus Capitis (head Louse) 11/20/2010 ABRAMS DO, JOSIE K 132.0 Pediculus Capitis (head Louse) 11/20/2010 AUDIE STACK APRN 132.0 Pediculus Capitis (head Louse) 11/20/2010 AUDIE STACK APRN 132.0 Pediculus Capitis (head Louse) 11/20/2010 KWABENA KEY MD 132.0 Pediculus Capitis (head Louse) 11/26/2010 PJ JEROME APRN A 845.00 Unspecified Site Of Ankle Sprain 11/26/2010 845.00 Unspecified Site Of Ankle Sprain 11/26/2010 845.00 Unspecified Site Of Ankle Sprain 11/26/2010 845.00 Unspecified Site Of Ankle Sprain 11/26/2010 845.00 Unspecified Site Of Ankle Sprain 11/26/2010 ABRAMS DO, JOSIE K 845.00 Unspecified Site Of Ankle Sprain 11/26/2010 MORRO VALDIVIA APRN R 845.00 Unspecified Site Of Ankle Sprain 11/26/2010 845.00 Unspecified Site Of Ankle Sprain 11/26/2010 845.00 Unspecified Site Of Ankle Sprain 11/26/2010 845.00 Unspecified Site Of Ankle Sprain 11/26/2010 845.00 Unspecified Site Of Ankle Sprain 11/26/2010 PJ JEROME APRN A 845.00 Unspecified Site Of Ankle Sprain 11/26/2010 ABRAMS DO, JOSIE K 845.00 Unspecified Site Of Ankle Sprain 11/26/2010 ABRAMS DO, JOSIE K 845.00 Unspecified Site Of Ankle Sprain 11/26/2010 ABRAMS DO, JOSIE K 845.00 Unspecified Site Of Ankle Sprain 11/26/2010 WESLEY WONG APRNINA R 845.00 Unspecified Site Of Ankle Sprain 11/26/2010 ABRAMS DO, JOSIE K 845.00 Unspecified Site Of Ankle Sprain 11/26/2010 AUDIE STACK APRN 845.00 Unspecified Site Of Ankle Sprain 11/26/2010 AUDIE STACK APRN 845.00 Unspecified Site Of Ankle Sprain 11/26/2010 KWABENA KEY MD 845.00 Unspecified Site Of Ankle Sprain 12/07/2010 RAJOTTE FISHER EEL, PJ A 465.9 Upper Respiratory Infection 12/07/2010 JUSTUS FISHER EEL, PJ A 530.81 Gerd 12/07/2010 465.9 Upper Respiratory Infection 12/07/2010 530.81 Gerd 12/07/2010 465.9 Upper Respiratory Infection 12/07/2010 530.81 Gerd 12/07/2010 465.9 Upper Respiratory Infection 12/07/2010 530.81 Gerd 12/07/2010 465.9 Upper Respiratory Infection 12/07/2010 530.81 Gerd 12/07/2010 ABRAMS DO, JOSIE K 465.9 Upper Respiratory Infection 12/07/2010 ABRAMS DO, JOSIE K 530.81 Gerd 12/07/2010 SKIP DEGROOT MORRO R 465.9 Upper Respiratory Infection 12/07/2010 SKIP DEGROOT MORRO R 530.81 Gerd 12/07/2010 465.9 Upper Respiratory Infection 12/07/2010 530.81 Gerd 12/07/2010 465.9 Upper Respiratory Infection 12/07/2010 530.81 Gerd 12/07/2010 465.9 Upper Respiratory Infection 12/07/2010 530.81 Gerd 12/07/2010 465.9 Upper Respiratory Infection 12/07/2010 530.81 Gerd 12/07/2010 JUSTUS FISHER EEL, PJ A 465.9 Upper Respiratory Infection 12/07/2010 JUSTUS DEGROOT PJ A 530.81 Gerd 12/07/2010 ABRAMS DO, JOSIE K 465.9 Upper Respiratory Infection 12/07/2010 ABRAMS DO, JOSIE K 530.81 Gerd 12/07/2010 ABRAMS DO, JOSIE K 465.9 Upper Respiratory Infection 12/07/2010 ABRAMS DO, JOSIE K 530.81 Gerd 12/07/2010 ABRAMS DO, JOSEI K 465.9 Upper Respiratory Infection 12/07/2010 ABRAMS DO, JOSIE K 530.81 Gerd 12/07/2010 MARVIN DEGROOT LUI R 465.9 Upper Respiratory Infection 12/07/2010 MARVIN DEGROOT LUI R 530.81 Gerd 12/07/2010 ABRAMS DO, JOSIE K 465.9 Upper Respiratory Infection 12/07/2010 ABRAMS DO, JOSIE K 530.81 Gerd 12/07/2010 AUDIE STACK APRN 465.9 Upper Respiratory Infection 12/07/2010 AUDIE STACK APRN 530.81 Gerd 12/07/2010 AUDIE STACK APRN 465.9 Upper Respiratory Infection 12/07/2010 AUDIE STACK APRN 530.81 Gerd 12/07/2010 KWABENA KEY MD 465.9 Upper Respiratory Infection 12/07/2010 KWABENA KEY MD 530.81 Gerd 12/10/2010 IFRAH JEROME APRNYL A 466.0 Bronchitis, Acute 12/10/2010 466.0 Bronchitis, Acute 12/10/2010 466.0 Bronchitis, Acute 12/10/2010 466.0 Bronchitis, Acute 12/10/2010 466.0 Bronchitis, Acute 12/10/2010 ABRAMS DO, JOSIE K 466.0 Bronchitis, Acute 12/10/2010 MORRO VALDIVIA APRN R 466.0 Bronchitis, Acute 12/10/2010 466.0 Bronchitis, Acute 12/10/2010 466.0 Bronchitis, Acute 12/10/2010 466.0 Bronchitis, Acute 12/10/2010 466.0 Bronchitis, Acute 12/10/2010 PJ JEROME APRN A 466.0 Bronchitis, Acute 12/10/2010 ABRAMS DO, JOSIE K 466.0 Bronchitis, Acute 12/10/2010 ABRAMS DO, JOSIE K 466.0 Bronchitis, Acute 12/10/2010 ABRAMS DO, JOSIE K 466.0 Bronchitis, Acute 12/10/2010 LUI WONG APRN R 466.0 Bronchitis, Acute 12/10/2010 ABRAMS DO, JOSIE K 466.0 Bronchitis, Acute 12/10/2010 AUDIE STACK APRN 466.0 Bronchitis, Acute 12/10/2010 AUDIE STACK APRN 466.0 Bronchitis, Acute 12/10/2010 KWABENA KEY MD 466.0 Bronchitis, Acute 01/01/2011 PJ JEROME APRN A 558.9 Gastroenteritis 01/01/2011 558.9 Gastroenteritis 01/01/2011 558.9 Gastroenteritis 01/01/2011 558.9 Gastroenteritis 01/01/2011 558.9 Gastroenteritis 01/01/2011 ABRAMS DO, JOSIE K 558.9 Gastroenteritis 01/01/2011 MORRO VALDIVIA APRN R 558.9 Gastroenteritis 01/01/2011 558.9 Gastroenteritis 01/01/2011 558.9 Gastroenteritis 01/01/2011 558.9 Gastroenteritis 01/01/2011 558.9 Gastroenteritis 01/01/2011 IFRAH JEROME APRNYL A 558.9 Gastroenteritis 01/01/2011 ABRAMS DO, JOSIE K 558.9 Gastroenteritis 01/01/2011 ABRAMS DO, JOSIE K 558.9 Gastroenteritis 01/01/2011 ABRAMS DO, JOSIE K 558.9 Gastroenteritis 01/01/2011 MARVIN DEGROOT LUI R 558.9 Gastroenteritis 01/01/2011 ABRAMS DO, JOSIE K 558.9 Gastroenteritis 01/01/2011 AUDIE STACK APRN 558.9 Gastroenteritis 01/01/2011 AUDIE STACK APRN 558.9 Gastroenteritis 01/01/2011 KWABENA KEY MD 558.9 Gastroenteritis 01/09/2011 PJ JEROME APRN A 465.9 Upper Respiratory Infection 01/09/2011 465.9 Upper Respiratory Infection 01/09/2011 465.9 Upper Respiratory Infection 01/09/2011 465.9 Upper Respiratory Infection 01/09/2011 465.9 Upper Respiratory Infection 01/09/2011 ABRAMS DO, JOSIE K 465.9 Upper Respiratory Infection 01/09/2011 MORRO VALDIVIA APRN R 465.9 Upper Respiratory Infection 01/09/2011 465.9 Upper Respiratory Infection 01/09/2011 465.9 Upper Respiratory Infection 01/09/2011 465.9 Upper Respiratory Infection 01/09/2011 465.9 Upper Respiratory Infection 01/09/2011 PJ JEROME APRN A 465.9 Upper Respiratory Infection 01/09/2011 ABRAMS DO, JOSIE K 465.9 Upper Respiratory Infection 01/09/2011 ABRAMS DO, JOSIE K 465.9 Upper Respiratory Infection 01/09/2011 ABRAMS DO, JOSIE K 465.9 Upper Respiratory Infection 01/09/2011 LUI WONG APRN R 465.9 Upper Respiratory Infection 01/09/2011 ABRAMS DO, JOSIE K 465.9 Upper Respiratory Infection 01/09/2011 AUDIE STACK APRN 465.9 Upper Respiratory Infection 01/09/2011 AUDIE STACK APRN 465.9 Upper Respiratory Infection 01/09/2011 KWABENA KEY MD 465.9 Upper Respiratory Infection 01/25/2011 PJ JEROME APRN A 346.10 Migraine Without Aura Without Mention Of Intractable Migraine Without Mention Of Status Migrainosus 01/25/2011 346.10 Migraine Without Aura Without Mention Of Intractable Migraine Without Mention Of Status Migrainosus 01/25/2011 346.10 Migraine Without Aura Without Mention Of Intractable Migraine Without Mention Of Status Migrainosus 01/25/2011 346.10 Migraine Without Aura Without Mention Of Intractable Migraine Without Mention Of Status Migrainosus 01/25/2011 346.10 Migraine Without Aura Without Mention Of Intractable Migraine Without Mention Of Status Migrainosus 01/25/2011 JOSIE ABRAMS DO K 346.10 Migraine Without Aura Without Mention Of Intractable Migraine Without Mention Of Status Migrainosus 01/25/2011 MORRO VALDIVIA APRN 346.10 Migraine Without Aura Without Mention Of Intractable Migraine Without Mention Of Status Migrainosus 01/25/2011 346.10 Migraine Without Aura Without Mention Of Intractable Migraine Without Mention Of Status Migrainosus 01/25/2011 346.10 Migraine Without Aura Without Mention Of Intractable Migraine Without Mention Of Status Migrainosus 01/25/2011 346.10 Migraine Without Aura Without Mention Of Intractable Migraine Without Mention Of Status Migrainosus 01/25/2011 346.10 Migraine Without Aura Without Mention Of Intractable Migraine Without Mention Of Status Migrainosus 01/25/2011 PJ JEROME APRN 346.10 Migraine Without Aura Without Mention Of Intractable Migraine Without Mention Of Status Migrainosus 01/25/2011 JOSIE ABRAMS DO K 346.10 Migraine Without Aura Without Mention Of Intractable Migraine Without Mention Of Status Migrainosus 01/25/2011 JOSIE ABRAMS DO K 346.10 Migraine Without Aura Without Mention Of Intractable Migraine Without Mention Of Status Migrainosus 01/25/2011 JOSIE ABRAMS DO K 346.10 Migraine Without Aura Without Mention Of Intractable Migraine Without Mention Of Status Migrainosus 01/25/2011 LUI WONG APRN 346.10 Migraine Without Aura Without Mention Of Intractable Migraine Without Mention Of Status Migrainosus 01/25/2011 JOSIE ABRAMS DO K 346.10 Migraine Without Aura Without Mention Of Intractable Migraine Without Mention Of Status Migrainosus 01/25/2011 AUDIE STACK APRN 346.10 Migraine Without Aura Without Mention Of Intractable Migraine Without Mention Of Status Migrainosus 01/25/2011 AUDIE TSACK APRN 346.10 Migraine Without Aura Without Mention Of Intractable Migraine Without Mention Of Status Migrainosus 01/25/2011 KWABENA KEY MD 346.10 Migraine Without Aura Without Mention Of Intractable Migraine Without Mention Of Status Migrainosus 02/28/2011 PJ JEROME APRN 008.8 Intestinal Infection Due To Other Organism Not Elsewhere Classified 02/28/2011 008.8 Intestinal Infection Due To Other Organism Not Elsewhere Classified 02/28/2011 008.8 Intestinal Infection Due To Other Organism Not Elsewhere Classified 02/28/2011 008.8 Intestinal Infection Due To Other Organism Not Elsewhere Classified 02/28/2011 008.8 Intestinal Infection Due To Other Organism Not Elsewhere Classified 02/28/2011 JOSIE ABRAMS DO 008.8 Intestinal Infection Due To Other Organism Not Elsewhere Classified 02/28/2011 MORRO VALDIVIA APRN 008.8 Intestinal Infection Due To Other Organism Not Elsewhere Classified 02/28/2011 008.8 Intestinal Infection Due To Other Organism Not Elsewhere Classified 02/28/2011 008.8 Intestinal Infection Due To Other Organism Not Elsewhere Classified 02/28/2011 008.8 Intestinal Infection Due To Other Organism Not Elsewhere Classified 02/28/2011 008.8 Intestinal Infection Due To Other Organism Not Elsewhere Classified 02/28/2011 PJ JEROME APRN 008.8 Intestinal Infection Due To Other Organism Not Elsewhere Classified 02/28/2011 JOSIE ABRAMS DO 008.8 Intestinal Infection Due To Other Organism Not Elsewhere Classified 02/28/2011 JOSIE ABRAMS DO K 008.8 Intestinal Infection Due To Other Organism Not Elsewhere Classified 02/28/2011 JOSIE ABRAMS DO K 008.8 Intestinal Infection Due To Other Organism Not Elsewhere Classified 02/28/2011 LUI WONG APRN 008.8 Intestinal Infection Due To Other Organism Not Elsewhere Classified 02/28/2011 JOSIE ABRAMS DO K 008.8 Intestinal Infection Due To Other Organism Not Elsewhere Classified 02/28/2011 AUDIE STACK APRN 008.8 Intestinal Infection Due To Other Organism Not Elsewhere Classified 02/28/2011 AUDIE STACK APRN 008.8 Intestinal Infection Due To Other Organism Not Elsewhere Classified 02/28/2011 KWABENA KEY MD 008.8 Intestinal Infection Due To Other Organism Not Elsewhere Classified 03/28/2011 PJ JEROME APRN 465.9 Upper Respiratory Infection 03/28/2011 465.9 Upper Respiratory Infection 03/28/2011 465.9 Upper Respiratory Infection 03/28/2011 465.9 Upper Respiratory Infection 03/28/2011 465.9 Upper Respiratory Infection 03/28/2011 JOSIE ABRAMS DO 465.9 Upper Respiratory Infection 03/28/2011 MORRO VALDIVIA APRN R 465.9 Upper Respiratory Infection 03/28/2011 465.9 Upper Respiratory Infection 03/28/2011 465.9 Upper Respiratory Infection 03/28/2011 465.9 Upper Respiratory Infection 03/28/2011 465.9 Upper Respiratory Infection 03/28/2011 IFRAH JEROME APRNYL A 465.9 Upper Respiratory Infection 03/28/2011 ABRAMS DO, JOSIE K 465.9 Upper Respiratory Infection 03/28/2011 ABRAMS DO, JOSIE K 465.9 Upper Respiratory Infection 03/28/2011 ABRAMS DO, JOSIE K 465.9 Upper Respiratory Infection 03/28/2011 LUI WONG APRN R 465.9 Upper Respiratory Infection 03/28/2011 ABRAMS DO, JOSIE K 465.9 Upper Respiratory Infection 03/28/2011 AUDIE STACK APRN 465.9 Upper Respiratory Infection 03/28/2011 AUDIE STACK APRN 465.9 Upper Respiratory Infection 03/28/2011 KWABENA KEY MD 465.9 Upper Respiratory Infection 04/09/2011 IFRAH JEROME APRNYL A 787.91 Diarrhea 04/09/2011 787.91 Diarrhea 04/09/2011 787.91 Diarrhea 04/09/2011 787.91 Diarrhea 04/09/2011 787.91 Diarrhea 04/09/2011 ABRAMS DO, JOSIE K 787.91 Diarrhea 04/09/2011 MORRO VALDIVIA APRN R 787.91 Diarrhea 04/09/2011 787.91 Diarrhea 04/09/2011 787.91 Diarrhea 04/09/2011 787.91 Diarrhea 04/09/2011 787.91 Diarrhea 04/09/2011 IFRAH JEROME APRNYL A 787.91 Diarrhea 04/09/2011 ABRAMS DO, JOSIE K 787.91 Diarrhea 04/09/2011 ABRAMS DO, JOSIE K 787.91 Diarrhea 04/09/2011 ABRAMS DO, JOSIE K 787.91 Diarrhea 04/09/2011 WESLEY WONG APRNINA R 787.91 Diarrhea 04/09/2011 ABRAMS DO, JOSIE K 787.91 Diarrhea 04/09/2011 AUDIE STACK APRN 787.91 Diarrhea 04/09/2011 AUDIE STACK APRN 787.91 Diarrhea 04/09/2011 KWABENA KEY MD 787.91 Diarrhea 04/19/2011 PJ JEROME APRN 008.8 Gastroenteritis, Viral 04/19/2011 008.8 Gastroenteritis, Viral 04/19/2011 008.8 Gastroenteritis, Viral 04/19/2011 008.8 Gastroenteritis, Viral 04/19/2011 008.8 Gastroenteritis, Viral 04/19/2011 JOSIE ABRAMS DO K 008.8 Gastroenteritis, Viral 04/19/2011 MORRO VALDIVIA APRN 008.8 Gastroenteritis, Viral 04/19/2011 008.8 Gastroenteritis, Viral 04/19/2011 008.8 Gastroenteritis, Viral 04/19/2011 008.8 Gastroenteritis, Viral 04/19/2011 008.8 Gastroenteritis, Viral 04/19/2011 PJ JEROME APRN 008.8 Gastroenteritis, Viral 04/19/2011 JOSIE ABRAMS DO K 008.8 Gastroenteritis, Viral 04/19/2011 TONY ABRAMS DOA K 008.8 Gastroenteritis, Viral 04/19/2011 TONY ABRAMS DOA K 008.8 Gastroenteritis, Viral 04/19/2011 LUI WONG APRN 008.8 Gastroenteritis, Viral 04/19/2011 ABRAMS TONY RODRIGUEZA K 008.8 Gastroenteritis, Viral 04/19/2011 AUDIE STACK APRN 008.8 Gastroenteritis, Viral 04/19/2011 AUDIE STACK APRN 008.8 Gastroenteritis, Viral 04/19/2011 KWABENA KEY MD 008.8 Gastroenteritis, Viral 05/13/2011 PJ JEROME APRN 845.00 Sprain/strain Ankle 05/13/2011 845.00 Sprain/strain Ankle 05/13/2011 845.00 Sprain/strain Ankle 05/13/2011 845.00 Sprain/strain Ankle 05/13/2011 845.00 Sprain/strain Ankle 05/13/2011 JOSIE ABRAMS DO 845.00 Sprain/strain Ankle 05/13/2011 MORRO VALDIVIA APRN 845.00 Sprain/strain Ankle 05/13/2011 845.00 Sprain/strain Ankle 05/13/2011 845.00 Sprain/strain Ankle 05/13/2011 845.00 Sprain/strain Ankle 05/13/2011 845.00 Sprain/strain Ankle 05/13/2011 PJ JEROME APRN 845.00 Sprain/strain Ankle 05/13/2011 ABRAMS DO, JOSIE K 845.00 Sprain/strain Ankle 05/13/2011 ABRAMS DO, JOSIE K 845.00 Sprain/strain Ankle 05/13/2011 ABRAMS DO, JOSIE K 845.00 Sprain/strain Ankle 05/13/2011 LUI WONG APRN R 845.00 Sprain/strain Ankle 05/13/2011 ABRAMS DO, JOSIE K 845.00 Sprain/strain Ankle 05/13/2011 AUDIE STACK APRN 845.00 Sprain/strain Ankle 05/13/2011 AUDIE STACK APRN 845.00 Sprain/strain Ankle 05/13/2011 KWABENA KEY MD 845.00 Sprain/strain Ankle 06/03/2011 PJ JEROME APRN 372.30 Conjunctivitis Unspecified 06/03/2011 372.30 Conjunctivitis Unspecified 06/03/2011 372.30 Conjunctivitis Unspecified 06/03/2011 372.30 Conjunctivitis Unspecified 06/03/2011 372.30 Conjunctivitis Unspecified 06/03/2011 ABRAMS DO, JOSIE K 372.30 Conjunctivitis Unspecified 06/03/2011 MORRO VALDIVIA APRN 372.30 Conjunctivitis Unspecified 06/03/2011 372.30 Conjunctivitis Unspecified 06/03/2011 372.30 Conjunctivitis Unspecified 06/03/2011 372.30 Conjunctivitis Unspecified 06/03/2011 372.30 Conjunctivitis Unspecified 06/03/2011 IFRAH JEROME APRNYL A 372.30 Conjunctivitis Unspecified 06/03/2011 ABRAMS DO, JOSIE K 372.30 Conjunctivitis Unspecified 06/03/2011 ABRAMS DO, JOSIE K 372.30 Conjunctivitis Unspecified 06/03/2011 ABRAMS DO, JOSIE K 372.30 Conjunctivitis Unspecified 06/03/2011 LUI WONG APRN R 372.30 Conjunctivitis Unspecified 06/03/2011 ABRAMS DO, JOSIE K 372.30 Conjunctivitis Unspecified 06/03/2011 AUDIE STACK APRN 372.30 Conjunctivitis Unspecified 06/03/2011 AUDIE STACK APRN 372.30 Conjunctivitis Unspecified 06/03/2011 KWABENA KEY MD 372.30 Conjunctivitis Unspecified 09/12/2011 Ot 923.10 09/12/2011 Ot 959.3 09/12/2011 Ot E000.8 09/12/2011 Ot E029.2 09/12/2011 Ot E849.0 09/12/2011 Ot E917.9 10/02/2011 PJ JEROME APRN A 682.9 Cellulitis And Abscess Of Unspecified Sites 10/02/2011 682.9 Cellulitis And Abscess Of Unspecified Sites 10/02/2011 682.9 Cellulitis And Abscess Of Unspecified Sites 10/02/2011 682.9 Cellulitis And Abscess Of Unspecified Sites 10/02/2011 682.9 Cellulitis And Abscess Of Unspecified Sites 10/02/2011 JOSIE ABRAMS DO 682.9 Cellulitis And Abscess Of Unspecified Sites 10/02/2011 MORRO VALDIVIA APRN 682.9 Cellulitis And Abscess Of Unspecified Sites 10/02/2011 682.9 Cellulitis And Abscess Of Unspecified Sites 10/02/2011 682.9 Cellulitis And Abscess Of Unspecified Sites 10/02/2011 682.9 Cellulitis And Abscess Of Unspecified Sites 10/02/2011 682.9 Cellulitis And Abscess Of Unspecified Sites 10/02/2011 PJ JEROME APRN A 682.9 Cellulitis And Abscess Of Unspecified Sites 10/02/2011 TONY ABRAMS DOA K 682.9 Cellulitis And Abscess Of Unspecified Sites 10/02/2011 ABRAMS DO JOSIE K 682.9 Cellulitis And Abscess Of Unspecified Sites 10/02/2011 ABRAMS DO JOSIE K 682.9 Cellulitis And Abscess Of Unspecified Sites 10/02/2011 LUI WONG APRN 682.9 Cellulitis And Abscess Of Unspecified Sites 10/02/2011 ABRAMS TONY RODRIGUEZA K 682.9 Cellulitis And Abscess Of Unspecified Sites 10/02/2011 AUDIE STACK APRN 682.9 Cellulitis And Abscess Of Unspecified Sites 10/02/2011 AUDIE STACK APRN 682.9 Cellulitis And Abscess Of Unspecified Sites 10/02/2011 KWABENA KEY MD 682.9 Cellulitis And Abscess Of Unspecified Sites 10/15/2011 PJ JEROME APRN 110.4 Dermatophytosis Of Foot 10/15/2011 110.4 Dermatophytosis Of Foot 10/15/2011 110.4 Dermatophytosis Of Foot 10/15/2011 110.4 Dermatophytosis Of Foot 10/15/2011 110.4 Dermatophytosis Of Foot 10/15/2011 JOSIE ABRAMS DO K 110.4 Dermatophytosis Of Foot 10/15/2011 MORRO VALDIVIA APRN 110.4 Dermatophytosis Of Foot 10/15/2011 110.4 Dermatophytosis Of Foot 10/15/2011 110.4 Dermatophytosis Of Foot 10/15/2011 110.4 Dermatophytosis Of Foot 10/15/2011 110.4 Dermatophytosis Of Foot 10/15/2011 PJ JEROME APRN 110.4 Dermatophytosis Of Foot 10/15/2011 ABRAMS DOJOSIE K 110.4 Dermatophytosis Of Foot 10/15/2011 ABRAMS DOTONYA K 110.4 Dermatophytosis Of Foot 10/15/2011 ABRAMS DOTNOYA K 110.4 Dermatophytosis Of Foot 10/15/2011 LUI WONG APRN 110.4 Dermatophytosis Of Foot 10/15/2011 ABRAMS JOSIE RODRIGUEZ K 110.4 Dermatophytosis Of Foot 10/15/2011 AUDIE STACK APRN 110.4 Dermatophytosis Of Foot 10/15/2011 AUDIE STACK APRN 110.4 Dermatophytosis Of Foot 10/15/2011 KWABENA KEY MD 110.4 Dermatophytosis Of Foot 10/21/2011 PJ JEROME APRN 493.92 Asthma (acute) Exacerbation 10/21/2011 493.92 Asthma (acute) Exacerbation 10/21/2011 493.92 Asthma (acute) Exacerbation 10/21/2011 493.92 Asthma (acute) Exacerbation 10/21/2011 493.92 Asthma (acute) Exacerbation 10/21/2011 JOSIE ABRAMS DO 493.92 Asthma (acute) Exacerbation 10/21/2011 MORRO VALDIVIA APRN 493.92 Asthma (acute) Exacerbation 10/21/2011 493.92 Asthma (acute) Exacerbation 10/21/2011 493.92 Asthma (acute) Exacerbation 10/21/2011 493.92 Asthma (acute) Exacerbation 10/21/2011 493.92 Asthma (acute) Exacerbation 10/21/2011 RAJOTTE FISHER EEL, PJ A 493.92 Asthma (acute) Exacerbation 10/21/2011 JOSIE ABRAMS DO 493.92 Asthma (acute) Exacerbation 10/21/2011 JOSIE ABRAMS DO K 493.92 Asthma (acute) Exacerbation 10/21/2011 JOSIE ABRAMS DO K 493.92 Asthma (acute) Exacerbation 10/21/2011 LUI WONG APRN 493.92 Asthma (acute) Exacerbation 10/21/2011 JOSIE ABRAMS DO 493.92 Asthma (acute) Exacerbation 10/21/2011 AUDIE STACK APRN 493.92 Asthma (acute) Exacerbation 10/21/2011 AUDIE STACK APRN 493.92 Asthma (acute) Exacerbation 10/21/2011 KWABENA KEY MD 493.92 Asthma (acute) Exacerbation 10/30/2011 PJ JEROME APRN A 682.6 CELLULITIS AND ABSCESS OF LEG EXCEPT FOOT 10/30/2011 IFRAH JEROME APRNYL A 706.1 ACNE 10/30/2011 682.6 CELLULITIS AND ABSCESS OF LEG EXCEPT FOOT 10/30/2011 706.1 ACNE 10/30/2011 682.6 CELLULITIS AND ABSCESS OF LEG EXCEPT FOOT 10/30/2011 706.1 ACNE 10/30/2011 682.6 CELLULITIS AND ABSCESS OF LEG EXCEPT FOOT 10/30/2011 706.1 ACNE 10/30/2011 682.6 CELLULITIS AND ABSCESS OF LEG EXCEPT FOOT 10/30/2011 706.1 ACNE 10/30/2011 JOSIE ABRAMS DO K 682.6 Cellulitis And Abscess Of Leg Except Foot 10/30/2011 JOSIE ABRAMS DO 706.1 ACNE 10/30/2011 MARSHALL VALDIVIA APRNIA R 682.6 Cellulitis And Abscess Of Leg Except Foot 10/30/2011 SKIP DEGROOT MORRO R 706.1 ACNE 10/30/2011 682.6 Cellulitis And Abscess Of Leg Except Foot 10/30/2011 706.1 ACNE 10/30/2011 682.6 Cellulitis And Abscess Of Leg Except Foot 10/30/2011 706.1 ACNE 10/30/2011 682.6 Cellulitis And Abscess Of Leg Except Foot 10/30/2011 706.1 ACNE 10/30/2011 682.6 Cellulitis And Abscess Of Leg Except Foot 10/30/2011 706.1 ACNE 10/30/2011 IFRAH JEROME APRNYL A 682.6 Cellulitis And Abscess Of Leg Except Foot 10/30/2011 IFRAH JEROME APRNYL A 706.1 ACNE 10/30/2011 ABRAMS DO, JOSIE K 682.6 Cellulitis And Abscess Of Leg Except Foot 10/30/2011 ABRAMS DO, JOSIE K 706.1 ACNE 10/30/2011 ABRAMS DO, JOSIE K 682.6 Cellulitis And Abscess Of Leg Except Foot 10/30/2011 ABRAMS DO, JOSIE K 706.1 ACNE 10/30/2011 ABRAMS DO, JOSIE K 682.6 Cellulitis And Abscess Of Leg Except Foot 10/30/2011 ABRAMS DO, JOSIE K 706.1 ACNE 10/30/2011 WESLEY WONG APRNINA R 682.6 Cellulitis And Abscess Of Leg Except Foot 10/30/2011 MARVIN DEGROOT, LUI R 706.1 ACNE 10/30/2011 ABRAMS DO, JOSIE K 682.6 Cellulitis And Abscess Of Leg Except Foot 10/30/2011 ABRAMS DO, JOSIE K 706.1 ACNE 10/30/2011 AUDIE STACK APRN 682.6 Cellulitis And Abscess Of Leg Except Foot 10/30/2011 AUDIE STACK APRN 706.1 ACNE 10/30/2011 AUDIE STACK APRN 682.6 Cellulitis And Abscess Of Leg Except Foot 10/30/2011 AUDIE STACK APRN 706.1 ACNE 10/30/2011 KWABENA KEY MD 682.6 Cellulitis And Abscess Of Leg Except Foot 10/30/2011 KWABENA KEY MD 706.1 ACNE 11/13/2011 PJ JEROME APRN A 342.00 Hemiflaccidity Of Left Side 11/13/2011 342.00 Hemiflaccidity Of Left Side 11/13/2011 342.00 Hemiflaccidity Of Left Side 11/13/2011 342.00 Hemiflaccidity Of Left Side 11/13/2011 342.00 Hemiflaccidity Of Left Side 11/13/2011 JOSE ALBERTO RODRIGUEZ JOSIE K 342.00 Hemiflaccidity Of Left Side 11/13/2011 MORRO VALDIVIA APRN 342.00 Hemiflaccidity Of Left Side 11/13/2011 342.00 Hemiflaccidity Of Left Side 11/13/2011 342.00 Hemiflaccidity Of Left Side 11/13/2011 342.00 Hemiflaccidity Of Left Side 11/13/2011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 Outpatient JOSIE ABRAMS DO [id number] 03/03/2012 14:46:00 03/03/2012 23: 59:59 CLS Outpatient [id number] 02/27/2012 15:50:00 02/27/2012 23: 59:59 CLS Outpatient [id number] 01/28/2012 09:30:00 01/28/2012 23: 59:59 CLS Outpatient [id number] 01/21/2012 13:20:00 01/21/2012 23: 59:59 CLS Outpatient [id number] 12/12/2011 13:54:00 12/12/2011 23:59 :59 CLS Outpatient PJ JEROME APRN [id number] 06/22/2012 14:29:00 Document Registration [id number] 06/12/2012 14:56:00 Document Registration [id number] 05/28/2012 14:39:00 Document Registration
== END 2016-08-03 02:05 | disposition home or self-care (01) ==
LOC: EDUNIT# 01:31 → ER 01:34
DX: S93.402A Sprain of unspecified ligament of left ankle, initial encounter (principal); F17.210 Nicotine dependence, cigarettes, uncomplicated; X50.0XXA Overexertion from strenuous movement or load, initial encounter; Y92.331 Roller skating rink as the place of occurrence of the external cause; Y93.51 Activity, roller skating (inline) and skateboarding
CPT/HCPCS: 73610; 99283

== ENCOUNTER 2017-01-24 21:19 | Emergency (ER) | payer SELFPAY ==
[~2017-01-24] VITALS: Ht 172.7 cm; Wt 65.8 kg
--- OUTSIDE RECORDS SUMMARY | 2017-01-24 21:26 | XMS REPORT ---
Author Author AUDIE STACK [facility] Address [address] [place] [address] Care Team Providers Care Tile Setter Name Role Phone AUDIE STACK Unavailable PROBLEMS Unknown Problems ALLERGIES Substance Reaction Event Type Date Status Imitrex headache Drug Allergy June, Active SOCIAL HISTORY Never Assessed PLAN OF CARE VITAL SIGNS Height 67 in 2016-06-19 Weight 150.2 lbs 2016-06-19 Temperature 99.9 degrees Fahrenheit 2016-06-19 Heart Rate 84 bpm 2016-06-19 Respiratory Rate 18 2016-06-19 BMI 23.52 kg/m2 2016-06-19 Blood pressure systolic 112 mmHg 2016-06-19 Blood pressure diastolic 70 mmHg 2016-06-19 MEDICATIONS Medication Instructions Dosage Frequency Start Date End Date Duration Status PredniSONE 20 mg Orally Once a day 2 tablets 24h June, June, 05 days Active Bactrim DS 800-160 MG Orally Twice a day 1 tablet 12h Active Amoxicillin 500 mg Orally 3 times a day 1 capsule 8h June, June, 10 day(s) Active RESULTS No Results PROCEDURES No Known procedures IMMUNIZATIONS No Known Immunizations MEDICAL (GENERAL) HISTORY Type Description Date Medical History allergic rhinitis Medical History basilar migraine headaches w/ TIA-like sx Medical History attention deficit hyperactivity disorder Medical History panic attacks Medical History anxiety Surgical History 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
--- OUTSIDE RECORDS SUMMARY | 2017-01-24 21:31 | XMS REPORT | Continuity of Care Document ---
Author Author On License Of [facility] Address Unknown Phone Unavailable Allergies Active Description Code Type Severity Reaction Onset Reported/Identified Relationship to Patient Clinical Status Yes Imitrex Drug Allergy 05/30/2009 Yes Imitrex Drug Allergy N/A N/A 05/30/2009 Yes No Known Drug Allergies [id number] Drug Allergy Unknown N/A 09/12/2011 Yes marijuana [id number] Drug Allergy Mild N/A 10/28/2014 Yes topiramate [id number] Drug Allergy Mild N/A 06/14/2015 Medications There is no data. Problems Date Dx Coded Attending Type Code [...] Dermatitis Contact Unspecified 10/19/2007 PJ JEROME APRN 692.9 Dermatitis Contact Unspecified 10/19/2007 ABRAMS [...] KEY MD 692.9 Dermatitis Contact Unspecified 11/12/2007 IFRAH JEROME APRNYL A 346.90 Migraine Headache 11/12/2007 346.90 Migraine [...] KWABENA KEY MD 346.90 Migraine Headache 01/12/2008 IFRAH JEROME APRNYL A 132.0 Pediculosis Capitis 01/12/2008 132.0 Pediculosis [...] DEGROOT LUI R 132.0 Pediculosis Capitis 01/12/2008 JOSE ALBERTO RODRIGUEZ, JOSIE K 132.0 Pediculosis Capitis 01/12/2008 AUDIE STACK APRN T 132.0 Pediculosis Capitis 01/12/2008 AUDIE STACK APRN 132.0 Pediculosis Capitis 01/12/2008 KWABENA KEY MD 132.0 Pediculosis Capitis 03/01/2008 IFRAH JEROME APRNYL A 346.0 MIGRAINE BASILAR 03/01/2008 346.0 MIGRAINE BASILAR 03/01/2008 346.0 MIGRAINE BASILAR 03/01/2008 346.0 MIGRAINE BASILAR 03/01/2008 346.0 MIGRAINE BASILAR 03/01/2008 ABRAMS DO, JOSIE K 346.0 MIGRAINE BASILAR 03/01/2008 MORRO VALDIVIA APRN R 346.0 MIGRAINE BASILAR 03/01/2008 346.0 MIGRAINE BASILAR 03/01/2008 346.0 MIGRAINE BASILAR 03/01/2008 346.0 MIGRAINE BASILAR 03/01/2008 346.0 MIGRAINE BASILAR 03/01/2008 IFRAH JEROME APRNYL A 346.0 MIGRAINE BASILAR 03/01/2008 ABRAMS DO, JOSIE K 346.0 MIGRAINE BASILAR 03/01/2008 ABRAMS DO, JOSIE K 346.0 MIGRAINE BASILAR 03/01/2008 ABRAMS DO, JOSIE K 346.0 MIGRAINE BASILAR 03/01/2008 MARVIN DEGROOT LUI R 346.0 MIGRAINE BASILAR 03/01/2008 ABRAMS , JOSIE K 346.0 MIGRAINE BASILAR 03/01/2008 AUDIE STACK APRN 346.0 MIGRAINE BASILAR 03/01/2008 AUDIE STACK APRN 346.0 MIGRAINE BASILAR 03/01/2008 KWABENA KEY MD 346.0 MIGRAINE BASILAR 03/15/2008 IFRAH JEROME APRNYL A 690.1 DERMATITIS SEBORRHEIC 03/15/2008 IFRAH JEROME APRNYL A 780.52 Insomnia 03/15/2008 690.1 DERMATITIS SEBORRHEIC 03/15/2008 780.52 Insomnia 03/15/2008 690.1 DERMATITIS SEBORRHEIC 03/15/2008 780.52 Insomnia 03/15/2008 690.1 DERMATITIS SEBORRHEIC 03/15/2008 780.52 Insomnia 03/15/2008 690.1 DERMATITIS SEBORRHEIC 03/15/2008 780.52 Insomnia 03/15/2008 ABRAMS DO, JOSIE K 690.1 DERMATITIS SEBORRHEIC 03/15/2008 ABRAMS DO, JOSIE K 780.52 Insomnia 03/15/2008 MARSHALL VALDIVIA APRNIA R 690.1 DERMATITIS SEBORRHEIC 03/15/2008 MARSHALL VALDIVIA APRNIA R 780.52 Insomnia 03/15/2008 690.1 DERMATITIS SEBORRHEIC 03/15/2008 780.52 Insomnia 03/15/2008 690.1 DERMATITIS SEBORRHEIC 03/15/2008 780.52 Insomnia 03/15/2008 690.1 DERMATITIS SEBORRHEIC 03/15/2008 780.52 Insomnia 03/15/2008 690.1 DERMATITIS SEBORRHEIC 03/15/2008 780.52 Insomnia 03/15/2008 JUSTUS DEGROOT, PJ A 690.1 DERMATITIS SEBORRHEIC 03/15/2008 JUSTUS DEGROOT PJ A 780.52 Insomnia 03/15/2008 ABRAMS DO, JOSIE K 690.1 DERMATITIS SEBORRHEIC 03/15/2008 ABRAMS DO, JOSIE K 780.52 Insomnia 03/15/2008 ABRAMS DO, JOSIE K 690.1 DERMATITIS SEBORRHEIC 03/15/2008 ABRAMS DO, JOSIE K 780.52 Insomnia 03/15/2008 ABRAMS DO, JOSIE K 690.1 DERMATITIS SEBORRHEIC 03/15/2008 ABRAMS DO, JOSIE K 780.52 Insomnia 03/15/2008 MARVIN DEGROOT, LUI R 690.1 DERMATITIS SEBORRHEIC 03/15/2008 MARVIN [...] 03/15/2008 KWABENA KEY MD 780.52 Insomnia 03/21/2008 JUSTUS DEGROOT PJ A 465.9 Upper Respiratory Infection Acute 03/21/2008 465.9 Upper Respiratory Infection Acute 03/21/2008 465.9 Upper Respiratory Infection Acute 03/21/2008 465.9 Upper Respiratory Infection Acute 03/21/2008 465.9 Upper Respiratory Infection Acute 03/21/2008 ABRAMS DO, JOSIE K 465.9 Upper Respiratory Infection Acute 03/21/2008 MORRO VALDIVIA APRN 465.9 Upper Respiratory Infection Acute 03/21/2008 465.9 [...] Respiratory Infection Acute 03/21/2008 LUI WONG APRN 465.9 Upper Respiratory Infection Acute 03/21/2008 ABRAMS [...] Joint Pain, Localized In The Shoulder 06/01/2008 VALDIVIA INSPECTOR FINAL ASSEMBLY CONVEYOR LINE, MORRO R 719.41 Joint Pain, Localized In The [...] In The Shoulder 06/01/2008 LUI WONG APRN R 719.41 Joint Pain, Localized In [...] JEROME APRN A 566 Cellulitis Anal 07/29/2008 IFRAH JEROME APRNYL A 706.1 Acne 07/29/2008 PJ JEROME APRN [...] Well Child Visit 07/29/2008 JOSIE ABRAMS DO 346.00 MIGRAINE HEADACHE (BASILAR ARTERY) 07/29/2008 ABRAMS TONY RODRIGUEZA K 566 Cellulitis Anal 07/29/2008 ABRAMS JOSIE RODRIGUEZ K 706.1 Acne 07/29/2008 ABRAMS TONYA K V20.2 Visit For: Well Child Visit 07/29/2008 VALDIVIA INSPECTOR FINAL ASSEMBLY CONVEYOR LINE, MORRO R 346.00 MIGRAINE HEADACHE (BASILAR ARTERY) 07/29/2008 VALDIVIA INSPECTOR FINAL ASSEMBLY CONVEYOR LINE, MORRO R 566 Cellulitis Anal 07/29/2008 VALDIVIA INSPECTOR FINAL ASSEMBLY CONVEYOR LINE, MORRO R 706.1 Acne 07/29/2008 VALDIVIA INSPECTOR FINAL ASSEMBLY CONVEYOR LINE, MORRO R V20.2 Visit For: Well Child [...] V20.2 Visit For: Well Child Visit 07/29/2008 RAJISMAELE INSPECTOR FINAL ASSEMBLY CONVEYOR LINE, PJ A 346.00 MIGRAINE HEADACHE (BASILAR ARTERY) 07/29/2008 RAJOTTE INSPECTOR FINAL ASSEMBLY CONVEYOR LINE, PJ A 566 Cellulitis Anal 07/29/2008 RAJOTTE INSPECTOR FINAL ASSEMBLY CONVEYOR LINE, PJ A 706.1 Acne 07/29/2008 RAJOTTE INSPECTOR FINAL ASSEMBLY CONVEYOR LINE, PJ A V20.2 Visit For: Well Child [...] Visit For: Well Child Visit 07/29/2008 MARVIN QUINONESNWESLEYLUI R 346.00 MIGRAINE HEADACHE (BASILAR ARTERY) 07/29/2008 MARVIN QUINONESN LUI R 566 Cellulitis Anal 07/29/2008 MARVIN QUINONESN LUI R 706.1 Acne 07/29/2008 MARVIN DEGROOT LUI R V20.2 Visit For: Well Child [...] STACK APRN T 566 Cellulitis Anal 07/29/2008 AUDIE STACK APRN [...] K 477.9 ALLERGIC RHINITIS CAUSE UNSPECIFIED 11/07/2008 ADILSON VALDIVIA APRNRICIA R 477.9 ALLERGIC RHINITIS CAUSE UNSPECIFIED 11/07/2008 [...] ABRAMS DO, JOSIE K 784.0 Headache 11/26/2008 SKIP INSPECTOR FINAL ASSEMBLY CONVEYOR LINEMORRO R 784.0 Headache 11/26/2008 784.0 Headache 11/26/2008 784.0 Headache 11/26/2008 784.0 Headache 11/26/2008 784.0 Headache 11/26/2008 EARLE INSPECTOR FINAL ASSEMBLY CONVEYOR LINE, PJ A 784.0 Headache 11/26/2008 ABRAMS DO, JOSIE K 784.0 Headache 11/26/2008 ABRAMS DO, JOSIE K 784.0 Headache 11/26/2008 ABRAMS DO, JOSIE K 784.0 Headache 11/26/2008 MARVIN INSPECTOR FINAL ASSEMBLY CONVEYOR LINE, LUI R 784.0 Headache 11/26/2008 ABRAMS DO, JOSIE K 784.0 Headache 11/26/2008 SREEKANTH INSPECTOR FINAL ASSEMBLY CONVEYOR LINE, AUDIE T 784.0 Headache 11/26/2008 SREEKANTH INSPECTOR FINAL ASSEMBLY CONVEYOR LINE, AUDIE T 784.0 Headache 11/26/2008 KWABENA KEY MD 784.0 Headache 01/09/2009 JUSTUS DEGROOT, PJ A 078.0 Molluscum Contagiosum 01/09/2009 JUSTUS [...] Friction Burn Without Mention Of Infection 01/09/2009 SKIP QUINONESN, MORRO R 078.0 Molluscum Contagiosum 01/09/2009 SKIP QUINONESN, MORRO R 912.0 Superficial Injury Of Shoulder [...] DEGROOT PJ A 078.0 Molluscum Contagiosum 01/09/2009 EARLE INSPECTOR FINAL ASSEMBLY CONVEYOR LINE, PJ A 912.0 Superficial Injury Of Shoulder [...] Burn Without Mention Of Infection 01/09/2009 MARVIN INSPECTOR FINAL ASSEMBLY CONVEYOR LINE, LUI R 078.0 Molluscum Contagiosum 01/09/2009 MARVIN INSPECTOR FINAL ASSEMBLY CONVEYOR LINE, LUI R 912.0 Superficial Injury Of Shoulder [...] Acute 01/19/2009 523.00 Gingivitis Acute 01/19/2009 ABRAMS DO, JOSIE K 523.00 Gingivitis Acute 01/19/2009 MORRO VALDIVIA APRN 523.00 Gingivitis Acute 01/19/2009 523.00 Gingivitis Acute 01/19/2009 523.00 Gingivitis Acute 01/19/2009 523.00 Gingivitis Acute 01/19/2009 523.00 Gingivitis Acute 01/19/2009 JUSTUS DEGROOT PJ A 523.00 Gingivitis Acute 01/19/2009 ABRAMS DO, JOSIE K 523.00 Gingivitis Acute 01/19/2009 ABRAMS DO, JOSIE K 523.00 Gingivitis Acute 01/19/2009 ABRAMS DO, JOSIE K 523.00 Gingivitis Acute 01/19/2009 LUI WONG APRN R 523.00 Gingivitis Acute 01/19/2009 ABRAMS DO, JOSIE K 523.00 Gingivitis Acute 01/19/2009 AUDIE STACK APRN 523.00 Gingivitis Acute 01/19/2009 AUDIE STACK APRN 523.00 Gingivitis Acute 01/19/2009 KWABENA KEY MD 523.00 Gingivitis Acute 01/20/2009 IFRAH JEROME APRNYL A 522.5 Dentoalveolar Abscess 01/20/2009 522.5 Dentoalveolar Abscess 01/20/2009 522.5 Dentoalveolar Abscess 01/20/2009 522.5 Dentoalveolar Abscess 01/20/2009 522.5 Dentoalveolar Abscess 01/20/2009 ABRAMS DO, JOSIE K 522.5 Dentoalveolar Abscess 01/20/2009 MORRO VALDIVIA APRN R 522.5 Dentoalveolar Abscess 01/20/2009 522.5 Dentoalveolar Abscess 01/20/2009 522.5 Dentoalveolar Abscess 01/20/2009 522.5 Dentoalveolar Abscess 01/20/2009 522.5 Dentoalveolar Abscess 01/20/2009 PJ JEROME APRN A 522.5 Dentoalveolar Abscess 01/20/2009 ABRAMS DO, JOSIE K 522.5 Dentoalveolar Abscess 01/20/2009 ABRAMS DO, JOSIE K 522.5 Dentoalveolar Abscess 01/20/2009 ABRAMS DO, JOSIE K 522.5 Dentoalveolar Abscess 01/20/2009 LUI WONG APRN R 522.5 Dentoalveolar Abscess 01/20/2009 ABRAMS DO, JOSIE K 522.5 Dentoalveolar Abscess 01/20/2009 AUDIE STAKC APRN 522.5 Dentoalveolar Abscess 01/20/2009 AUDIE STACK [...] 01/21/2009 782.3 Edema 01/21/2009 782.3 Edema 01/21/2009 PJ JEROME APRN A 782.3 Edema 01/21/2009 ABRAMS DO, JOSIE K 782.3 Edema 01/21/2009 ABRAMS DO, JOSIE K 782.3 Edema 01/21/2009 ABRAMS DO, JOSIE K 782.3 Edema 01/21/2009 MARVIN DEGROOT, LUI R 782.3 Edema 01/21/2009 ABRAMS DO, JOSIE K 782.3 Edema 01/21/2009 AUDIE STACK APRN T 782.3 Edema 01/21/2009 AUDIE STACK APRN T 782.3 Edema 01/21/2009 KWABENA KEY MD 782.3 Edema 03/31/2009 PJ JEROME APRN A 008.8 Gastroenteritis Viral 03/31/2009 008.8 Gastroenteritis Viral 03/31/2009 008.8 Gastroenteritis Viral 03/31/2009 008.8 Gastroenteritis Viral 03/31/2009 008.8 Gastroenteritis Viral 03/31/2009 ABRAMS DO, JOSIE K 008.8 Gastroenteritis Viral 03/31/2009 MORRO VALDIVIA [...] 04/18/2009 314.00 ADHD, PREDOMINANTLY INATTENTIVE TYPE 04/18/2009 IFRAH JEROME APRNYL A 314.00 ADHD, PREDOMINANTLY INATTENTIVE TYPE 04/18/2009 ABRAMS DO, JOSIE K 314.00 ADHD, PREDOMINANTLY INATTENTIVE TYPE 04/18/2009 ABRAMS DO, JSOIE K 314.00 ADHD, PREDOMINANTLY INATTENTIVE TYPE 04/18/2009 ABRAMS DO, JOSIE K 314.00 ADHD, PREDOMINANTLY INATTENTIVE TYPE 04/18/2009 LUI OWNG APRN R 314.00 ADHD, PREDOMINANTLY INATTENTIVE TYPE 04/18/2009 ABRAMS DO, JOSIE K 314.00 ADHD, PREDOMINANTLY INATTENTIVE TYPE 04/18/2009 AUDIE STACK APRN T 314.00 ADHD, PREDOMINANTLY INATTENTIVE TYPE 04/18/2009 AUDIE STACK APRN 314.00 ADHD, PREDOMINANTLY INATTENTIVE TYPE 04/18/2009 SHAHID MARCH, KWABENA 314.00 ADHD, PREDOMINANTLY INATTENTIVE TYPE 05/11/2009 IFRAH JEROME APRNYL A 724.2 Lower Back Pain 05/11/2009 IFRAH JEROME APRNYL A 737.30 SCOLIOSIS 05/11/2009 724.2 Lower Back Pain 05/11/2009 737.30 SCOLIOSIS 05/11/2009 724.2 Lower Back Pain 05/11/2009 737.30 SCOLIOSIS 05/11/2009 724.2 Lower Back Pain 05/11/2009 737.30 SCOLIOSIS 05/11/2009 724.2 Lower Back Pain 05/11/2009 737.30 SCOLIOSIS 05/11/2009 JOSE ALBERTO DO JOSIE K 724.2 Lower Back Pain 05/11/2009 ABRAMS DO JOSIE K 737.30 SCOLIOSIS 05/11/2009 MORRO VALDIVIA APRN R 724.2 Lower Back Pain 05/11/2009 MORRO VALDIVIA APRN R 737.30 SCOLIOSIS 05/11/2009 724.2 Lower Back Pain 05/11/2009 737.30 SCOLIOSIS 05/11/2009 724.2 Lower Back Pain 05/11/2009 737.30 SCOLIOSIS 05/11/2009 724.2 Lower Back Pain 05/11/2009 737.30 SCOLIOSIS 05/11/2009 724.2 Lower Back Pain 05/11/2009 737.30 SCOLIOSIS 05/11/2009 JUSTUS DEGROOT, PJ A 724.2 Lower Back Pain 05/11/2009 JUSTUS DEGROOT, PJ A 737.30 SCOLIOSIS 05/11/2009 ABRAMS DO, JOSIE K 724.2 Lower Back Pain 05/11/2009 ABRAMS DO, JOSIE K 737.30 SCOLIOSIS 05/11/2009 ABRAMS DO, JOSIE K 724.2 Lower Back Pain 05/11/2009 ABRAMS DO, JOSIE K 737.30 SCOLIOSIS 05/11/2009 ABRAMS DO, JOSIE K 724.2 Lower Back Pain 05/11/2009 ABRAMS DO, JOSIE K 737.30 SCOLIOSIS 05/11/2009 MARVIN INSPECTOR FINAL ASSEMBLY CONVEYOR LINE, LUI R 724.2 Lower Back Pain 05/11/2009 MARVIN QUINONESN, LUI R 737.30 SCOLIOSIS 05/11/2009 ABRAMS DO, JOSIE K 724.2 Lower Back Pain 05/11/2009 ABRAMS DO, JOSIE K 737.30 SCOLIOSIS 05/11/2009 AUDIE STACK APRN 724.2 Lower Back Pain 05/11/2009 AUDIE STACK APRN 737.30 SCOLIOSIS 05/11/2009 AUDIE STACK APRN T 724.2 Lower Back Pain 05/11/2009 AUDIE STACK APRN 737.30 SCOLIOSIS 05/11/2009 KWABENA KEY MD 724.2 [...] JOSIE K 786.09 Respiratory Abnormalities, Other 05/22/2009 WESLEY WONG APRNINA R 786.09 Respiratory Abnormalities, Other 05/22/2009 ABRAMS DO, JOSIE K 786.09 Respiratory Abnormalities, Other 05/22/2009 AUDIE STACK APRN 786.09 Respiratory Abnormalities, Other 05/22/2009 AUDIE STACK APRN 786.09 Respiratory Abnormalities, Other 05/22/2009 KWABENA KEY MD 786.09 Respiratory Abnormalities, Other 05/29/2009 IFRAH JEROME APRNYL A 461.9 Sinusitis Acute 05/29/2009 461.9 Sinusitis Acute 05/29/2009 461.9 Sinusitis Acute 05/29/2009 461.9 Sinusitis Acute 05/29/2009 461.9 Sinusitis Acute 05/29/2009 ABRAMS DO, JOSIE K 461.9 Sinusitis Acute 05/29/2009 MORRO VALDIVIA [...] AUDIE STACK APRN 461.9 Sinusitis Acute 05/29/2009 SHAHID MARCH, KWABENA 461.9 Sinusitis Acute 06/14/2009 IFRAH JEROME APRNYL A 535.00 Acute Gastritis, Without Mention Of Hemorrhage 06/14/2009 535.00 Acute Gastritis, Without Mention Of Hemorrhage 06/14/2009 535.00 Acute Gastritis, Without Mention Of Hemorrhage 06/14/2009 535.00 Acute Gastritis, Without Mention Of Hemorrhage 06/14/2009 535.00 Acute Gastritis, Without Mention Of Hemorrhage 06/14/2009 ABRAMS DO, JOSIE K 535.00 Acute Gastritis, Without Mention Of Hemorrhage 06/14/2009 VALDIVIA INSPECTOR FINAL ASSEMBLY CONVEYOR LINE, MORRO R 535.00 Acute Gastritis, Without Mention [...] Gastritis, Without Mention Of Hemorrhage 06/14/2009 MARVIN INSPECTOR FINAL ASSEMBLY CONVEYOR LINE, LUI R 535.00 Acute Gastritis, Without Mention [...] Due To Oils And Greases 06/19/2009 ABRAMS DO JOSIE K 692.1 Contact Dermatitis And Other [...] SPECIFIED CONGENITAL ANOMALIES OF SKIN 10/04/2009 PJ JEROME APRN 919.4 Superficial Injury Of Other, Multiple, [...] APRN R 919.4 Superficial Injury Of Other, Multiple, [...] Bite, Nonvenomous, Without Mention Of Infection 10/04/2009 EARLE INSPECTOR FINAL ASSEMBLY CONVEYOR LINE, JP A 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 10/04/2009 EARLE INSPECTOR FINAL ASSEMBLY CONVEYOR LINE, PJ A 919.4 Superficial Injury Of Other, [...] Nonvenomous, Without Mention Of Infection 10/04/2009 MARVIN QUINONESN, LUI R 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 10/04/2009 LUI WONG APRN R 919.4 Superficial Injury Of Other, Multiple, And Unspecified Sites, Insect Bite , Nonvenomous, Without Mention Of Infection 10/04/2009 JOSIE ABRAMS DO K 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 10/04/2009 JOSIE ABRAMS DO K 919.4 Superficial Injury Of Other, Multiple, And Unspecified Sites, Insect Bite, Nonvenomous, Without Mention Of Infection 10/04/2009 AUDIE STACK APRN 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 10/04/2009 AUDIE STACK APRN 919.4 Superficial Injury Of Other, Multiple, And Unspecified Sites, Insect Bite , Nonvenomous, Without Mention Of Infection 10/04/2009 AUDIE STACK APRN 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 10/04/2009 AUDIE STACK APRN 919.4 Superficial Injury Of Other, Multiple, And Unspecified Sites, Insect Bite , Nonvenomous, Without Mention Of Infection 10/04/2009 KWABENA KEY MD 417.39 OTHER SPECIFIED CONGENITAL ANOMALIES OF SKIN 10/04/2009 KWABENA KEY MD 9.4 Superficial Injury Of Other, Multiple, And Unspecified [...] Other Cellulitis And Abscess, Unspecified Site 10/06/2009 ABRAMS DO JOSIE K 682.9 Other Cellulitis And Abscess, Unspecified Site 10/06/2009 ABRAMS DO JOSIE K 682.9 Other Cellulitis And Abscess, Unspecified Site 10/06/2009 LUI WONG APRN 682.9 Other Cellulitis And Abscess, Unspecified Site 10/06/2009 ABRAMS DO JOSIE K 682.9 Other Cellulitis And Abscess, Unspecified Site 10/06/2009 AUDIE STACK APRN 682.9 Other Cellulitis And Abscess, Unspecified Site 10/06/2009 AUDIE STACK APRN 682.9 Other Cellulitis And Abscess, Unspecified Site 10/06/2009 KWABENA KEY MD 682.9 Other Cellulitis And Abscess, Unspecified Site 10/20/2009 IFRAH JEROME APRNYL A 789.00 Abdominal Pain Unspecified Site 10/20/2009 789.00 Abdominal Pain Unspecified Site 10/20/2009 789.00 Abdominal Pain Unspecified Site 10/20/2009 789.00 Abdominal Pain Unspecified Site 10/20/2009 789.00 Abdominal Pain Unspecified Site 10/20/2009 TONY ABRAMS DOA K 789.00 Abdominal Pain Unspecified Site 10/20/2009 MORRO VALDIVIA APRN R 789.00 Abdominal Pain Unspecified Site 10/20/2009 789.00 [...] Pain Unspecified Site 10/20/2009 LUI WONG APRN 789.00 Abdominal Pain Unspecified Site 10/20/2009 ABRAMS [...] Vomiting 11/06/2009 787.01 Nausea With Vomiting 11/06/2009 PJ JEROME APRN A 787.01 Nausea With Vomiting 11/06/2009 ABRAMS DO, JOSEI K 787.01 Nausea With Vomiting 11/06/2009 ABRAMS DO, JOSIE K 787.01 Nausea With Vomiting 11/06/2009 ABRAMS DO, JOSIE K 787.01 Nausea With Vomiting 11/06/2009 LUI WONG APRN R 787.01 Nausea With Vomiting 11/06/2009 ABRAMS DO, JOSIE K 787.01 Nausea With Vomiting 11/06/2009 AUDIE STACK APRN 787.01 Nausea With Vomiting 11/06/2009 AUDIE STACK APRN 787.01 Nausea With Vomiting 11/06/2009 KWABENA KEY MD 787.01 Nausea With Vomiting 11/20/2009 IFRAH JEROME APRNYL A 786.2 Cough 11/20/2009 786.2 Cough 11/20/2009 [...] K 786.2 Cough 11/20/2009 LUI WONG APRN R 786.2 Cough 11/20/2009 ABRAMS DO, JOSIE K [...] 462 Pharyngitis Acute 12/28/2009 LUI WONG APRN R 462 Pharyngitis Acute 12/28/2009 ABRAMS DO, JOSIE K 462 Pharyngitis Acute 12/28/2009 AUDIE STACK APRN 462 Pharyngitis Acute 12/28/2009 AUDIE STACK APRN 462 Pharyngitis Acute 12/28/2009 KWABENA KEY MD 462 Pharyngitis Acute 01/10/2010 PJ JEROME APRN A V65.2 Person Feigning Illness 01/10/2010 V65.2 Person Feigning Illness 01/10/2010 V65.2 Person Feigning Illness 01/10/2010 V65.2 Person Feigning Illness 01/10/2010 V65.2 Person Feigning Illness 01/10/2010 ABRMAS DO, JOSIE K V65.2 Person Feigning Illness 01/10/2010 MORRO VALDIVIA APRN V65.2 Person Feigning Illness 01/10/2010 V65.2 Person [...] APRN V65.2 Person Feigning Illness 01/10/2010 KWABENA KEY MD V65.2 Person Feigning Illness 02/15/2010 PJ JEROME APRN A 466.0 Acute Bronchitis 02/15/2010 466.0 Acute Bronchitis 02/15/2010 466.0 Acute Bronchitis 02/15/2010 466.0 Acute Bronchitis 02/15/2010 466.0 Acute Bronchitis 02/15/2010 ABRAMS DO, JOSIE K 466.0 Acute Bronchitis 02/15/2010 MORRO VALDIVIA APRN R 466.0 Acute Bronchitis 02/15/2010 466.0 Acute Bronchitis 02/15/2010 466.0 Acute Bronchitis 02/15/2010 466.0 Acute Bronchitis 02/15/2010 466.0 Acute Bronchitis 02/15/2010 PJ JEROME APRN A 466.0 Acute Bronchitis 02/15/2010 ABRAMS DO, JOSIE K 466.0 Acute Bronchitis 02/15/2010 ABRAMS DO, JOSIE K 466.0 Acute Bronchitis 02/15/2010 ABRAMS DO, JOSIE K 466.0 Acute Bronchitis 02/15/2010 LUI WONG APRN R 466.0 Acute Bronchitis 02/15/2010 ABRAMS DO, JOSIE K 466.0 Acute Bronchitis 02/15/2010 SREEKANTH DEGROOT AUDIE T 466.0 Acute Bronchitis 02/15/2010 SREEKANTH ZANE AUDIE T 466.0 Acute Bronchitis 02/15/2010 SHAHID MARCH, [...] JOSIE K 789.07 Abdominal Pain Generalized 04/02/2010 JOSIE ABRAMS DO 789.07 Abdominal Pain Generalized 04/02/2010 LUI WONG APRN 789.07 Abdominal Pain Generalized 04/02/2010 ABRAMS TONY RODRIGUEZA K 789.07 Abdominal Pain Generalized 04/02/2010 AUDIE STACK APRN 789.07 Abdominal Pain Generalized 04/02/2010 AUDIE STACK APRN 789.07 Abdominal Pain Generalized 04/02/2010 KWABENA KEY MD 789.07 Abdominal Pain Generalized 06/12/2010 PJ JEROME APRN V58.69 Long-term (current) Use Of Other Medications 06/12/2010 V58.69 Long-term ( current) Use Of Other Medications 06/12/2010 V58.69 Long-term ( current) Use Of Other Medications 06/12/2010 V58.69 Long-term ( current) Use Of Other Medications 06/12/2010 V58.69 Long-term ( current) Use Of Other Medications 06/12/2010 JOSIE ABRAMS DO V58.69 Long-term (current) Use Of Other Medications 06/12/2010 MORRO VALDIVIA APRN V58.69 Long-term (current) Use Of Other Medications 06/12/2010 V58.69 Long-term ( current) Use Of Other Medications 06/12/2010 V58.69 Long-term ( current) Use Of Other Medications 06/12/2010 V58.69 Long-term ( current) Use Of Other Medications 06/12/2010 V58.69 Long-term ( current) Use Of Other Medications 06/12/2010 PJ JEROME [...] ABRAMS DO, JOSIE K 783.5 Polydipsia 10/01/2010 WESLEY WONG APRNINA R 783.5 Polydipsia 10/01/2010 ABRAMS DO, JOSIE K 783.5 Polydipsia 10/01/2010 AUDIE STACK APRN 783.5 Polydipsia 10/01/2010 AUDIE STACK APRN 783.5 Polydipsia 10/01/2010 KWABENA KEY MD 783.5 Polydipsia 10/23/2010 PJ JEROME APRN A 079.99 Viral Syndrome 10/23/2010 PJ JEROME APRN A V04.81 Flu Dx (p-free Age 3 And Above) 10/23/2010 079.99 Viral Syndrome 10/23/2010 V04.81 Flu Dx (p- free Age 3 And Above) 10/23/2010 079.99 Viral Syndrome 10/23/2010 V04.81 Flu Dx (p- free Age 3 And Above) 10/23/2010 079.99 Viral Syndrome 10/23/2010 V04.81 Flu Dx (p- free Age 3 And Above) 10/23/2010 079.99 Viral Syndrome 10/23/2010 V04.81 Flu Dx (p- free Age 3 And Above) 10/23/2010 JOSIE ABRAMS DO K 079.99 Viral Syndrome 10/23/2010 ABRAMS , JOSIE K V04.81 Flu Dx (p-free Age 3 And Above) 10/23/2010 MORRO VALDIVIA APRN R 079.99 Viral Syndrome 10/23/2010 MARSHALL VALDIVIA APRNIA R V04.81 Flu Dx (p-free Age 3 And Above) 10/23/2010 079.99 Viral Syndrome 10/23/2010 V04.81 Flu Dx (p- free Age 3 And Above) 10/23/2010 079.99 Viral Syndrome 10/23/2010 V04.81 Flu Dx (p- free Age 3 And Above) 10/23/2010 079.99 Viral Syndrome 10/23/2010 V04.81 Flu Dx (p- free Age 3 And Above) 10/23/2010 079.99 Viral Syndrome 10/23/2010 V04.81 Flu Dx (p- free Age 3 And Above) 10/23/2010 IFRAH JEROME APRNYL A 079.99 Viral Syndrome 10/23/2010 JUSTUS DEGROOT PJ A V04.81 Flu Dx (p-free Age 3 And Above) 10/23/2010 JOSIE ABRAMS DO K 079.99 Viral Syndrome 10/23/2010 TONY ABRAMS DOA K V04.81 Flu Dx (p-free Age 3 And Above) 10/23/2010 TONY ABRAMS DOA K 079.99 Viral Syndrome 10/23/2010 ABRAMS , JOSIE K V04.81 Flu Dx (p-free Age 3 And Above) 10/23/2010 ABRAMS DO JOSIE K 079.99 Viral Syndrome 10/23/2010 ABRAMS , JOSIE K V04.81 Flu Dx (p-free Age 3 And Above) 10/23/2010 WESLEY WONG APRNINA R 079.99 Viral Syndrome 10/23/2010 WESLEY WONG APRNINA R V04.81 Flu Dx (p-free Age 3 And Above) 10/23/2010 JOSIE ABRAMS DO 079.99 Viral Syndrome 10/23/2010 JOSIE ABRAMS DO V04.81 Flu Dx (p-free Age 3 And [...] 11/20/2010 132.0 Pediculus Capitis (head Louse) 11/20/2010 JOSIE ABRAMS DO K 132.0 Pediculus Capitis (head Louse) 11/20/2010 MORRO VALDIVIA APRN 132.0 Pediculus Capitis (head Louse) 11/20/2010 132.0 Pediculus Capitis (head Louse) 11/20/2010 132.0 Pediculus Capitis (head Louse) 11/20/2010 132.0 Pediculus Capitis (head Louse) 11/20/2010 132.0 Pediculus Capitis (head Louse) 11/20/2010 PJ JEROME APRN A 132.0 Pediculus Capitis (head Louse) 11/20/2010 JOSE ALBERTO RODRIGUEZ JOSIE K 132.0 Pediculus Capitis (head Louse) 11/20/2010 ABRAMS DO JOSIE K 132.0 Pediculus Capitis (head Louse) 11/20/2010 JOSE ALBERTO RODRIGUEZ JOSIE K 132.0 Pediculus Capitis (head Louse) 11/20/2010 LUI WONG APRN 132.0 Pediculus Capitis (head Louse) 11/20/2010 JOSE ALBERTO DO, JOSIE K 132.0 Pediculus Capitis (head [...] Of Ankle Sprain 11/26/2010 MORRO VALDIVIA APRN 845.00 Unspecified Site Of Ankle Sprain 11/26/2010 845.00 Unspecified Site Of Ankle Sprain 11/26/2010 845.00 Unspecified Site Of Ankle Sprain 11/26/2010 845.00 Unspecified Site Of Ankle Sprain 11/26/2010 845.00 Unspecified Site Of Ankle Sprain 11/26/2010 IFRAH JEROME APRNYL A 845.00 Unspecified Site Of Ankle Sprain 11/26/2010 ABRAMS DO, JOSIE K 845.00 Unspecified Site Of Ankle Sprain 11/26/2010 ABRAMS DO, JOSIE K 845.00 Unspecified Site Of Ankle Sprain 11/26/2010 ABRAMS DO, JOSIE K 845.00 Unspecified Site Of Ankle Sprain 11/26/2010 LUI WONG APRN R 845.00 Unspecified Site Of Ankle Sprain 11/26/2010 ABRAMS DO, JOSIE K 845.00 Unspecified Site Of Ankle Sprain 11/26/2010 AUDIE STACK APRN 845.00 Unspecified Site Of Ankle Sprain 11/26/2010 AUDIE STACK APRN 845.00 Unspecified Site Of Ankle Sprain 11/26/2010 KWABENA KEY MD 845.00 Unspecified Site Of Ankle Sprain 12/07/2010 JUSTUS DEGROOT PJ A 465.9 Upper Respiratory Infection 12/07/2010 JUSTUS INSPECTOR FINAL ASSEMBLY CONVEYOR LINE, PJ A 530.81 Gerd 12/07/2010 465.9 Upper Respiratory Infection 12/07/2010 530.81 Gerd 12/07/2010 465.9 Upper Respiratory Infection 12/07/2010 530.81 Gerd 12/07/2010 465.9 Upper Respiratory Infection 12/07/2010 530.81 Gerd 12/07/2010 465.9 Upper Respiratory Infection 12/07/2010 530.81 Gerd 12/07/2010 ABRAMS DO, JOSIE K 465.9 Upper Respiratory Infection 12/07/2010 ABRAMS DO, JOSIE K 530.81 Gerd 12/07/2010 ADILSON VALDIVIA APRNRICIA R 465.9 Upper Respiratory Infection 12/07/2010 SKIP DEGROOT MORRO R 530.81 Gerd 12/07/2010 465.9 Upper Respiratory Infection 12/07/2010 530.81 Gerd 12/07/2010 465.9 Upper Respiratory Infection 12/07/2010 530.81 Gerd 12/07/2010 465.9 Upper Respiratory Infection 12/07/2010 530.81 Gerd 12/07/2010 465.9 Upper Respiratory Infection 12/07/2010 530.81 Gerd 12/07/2010 JUSTUS DGEROOT PJ A 465.9 Upper Respiratory Infection 12/07/2010 [...] 12/07/2010 KWABENA KEY MD 530.81 Gerd 12/10/2010 PJ JEROME APRN A 466.0 Bronchitis, Acute 12/10/2010 466.0 Bronchitis, [...] KWABENA KEY MD 466.0 Bronchitis, Acute 01/01/2011 IFRAH JEROME APRNYL A 558.9 Gastroenteritis 01/01/2011 558.9 Gastroenteritis 01/01/2011 558.9 Gastroenteritis 01/01/2011 558.9 Gastroenteritis 01/01/2011 558.9 Gastroenteritis 01/01/2011 ABRAMS DO, JOSIE K 558.9 Gastroenteritis 01/01/2011 MORRO VALDIVIA APRN R 558.9 Gastroenteritis 01/01/2011 558.9 Gastroenteritis 01/01/2011 558.9 Gastroenteritis 01/01/2011 558.9 Gastroenteritis 01/01/2011 558.9 Gastroenteritis 01/01/2011 RAJOTTE INSPECTOR FINAL ASSEMBLY CONVEYOR LINE, PJ A 558.9 Gastroenteritis 01/01/2011 ABRAMS DO, JOSIE [...] JOSIE K 465.9 Upper Respiratory Infection 01/09/2011 WESLEY WONG APRNINA R 465.9 Upper Respiratory Infection 01/09/2011 ABRAMS [...] Migraine Without Mention Of Status Migrainosus 01/25/2011 TONY ABRAMS DOA K 346.10 Migraine Without Aura Without Mention Of Intractable Migraine Without Mention Of Status Migrainosus 01/25/2011 TONY ABRAMS DOA K 346.10 Migraine Without Aura Without Mention Of Intractable Migraine Without Mention Of Status Migrainosus 01/25/2011 TONY ABRAMS DOA K 346.10 Migraine Without Aura Without Mention [...] Infection 03/28/2011 465.9 Upper Respiratory Infection 03/28/2011 ABRAMS DO, JOSIE K 465.9 Upper Respiratory Infection 03/28/2011 MORRO VALDIVIA [...] JOSIE K 465.9 Upper Respiratory Infection 03/28/2011 WESLEY WONG APRNINA R 465.9 Upper Respiratory Infection 03/28/2011 ABRAMS [...] ABRAMS DO, JOSIE K 787.91 Diarrhea 04/09/2011 BARAMS DO, JOSIE K 787.91 Diarrhea 04/09/2011 ABRAMS DO, JOSIE K 787.91 Diarrhea 04/09/2011 MARVIN DEGROOT LUI R 787.91 Diarrhea 04/09/2011 ABRAMS DO, JOSIE K 787.91 Diarrhea 04/09/2011 AUDIE STACK APRN 787.91 Diarrhea 04/09/2011 AUDIE STACK APRN 787.91 Diarrhea 04/09/2011 KWABENA KEY MD 787.91 Diarrhea 04/19/2011 PJ JEROME APRN 008.8 Gastroenteritis, Viral 04/19/2011 008.8 Gastroenteritis, Viral 04/19/2011 008.8 Gastroenteritis, Viral 04/19/2011 008.8 Gastroenteritis, Viral 04/19/2011 008.8 Gastroenteritis, Viral 04/19/2011 ABRAMS DO, JOSIE K 008.8 Gastroenteritis, Viral 04/19/2011 MORRO VALDIVIA APRN 008.8 Gastroenteritis, Viral 04/19/2011 008.8 Gastroenteritis, Viral 04/19/2011 008.8 Gastroenteritis, Viral 04/19/2011 008.8 Gastroenteritis, Viral 04/19/2011 008.8 Gastroenteritis, Viral 04/19/2011 PJ JEROME APRN 008.8 Gastroenteritis, Viral 04/19/2011 ABRAMS DO, JOSIE K 008.8 Gastroenteritis, Viral 04/19/2011 ABRAMS DO, JOSIE K 008.8 Gastroenteritis, Viral 04/19/2011 ABRAMS DO, JOSIE K 008.8 Gastroenteritis, Viral 04/19/2011 LUI WONG APRN 008.8 Gastroenteritis, Viral 04/19/2011 ABRAMS DO, JOSIE K 008.8 Gastroenteritis, Viral 04/19/2011 AUDIE STACK APRN 008.8 Gastroenteritis, Viral 04/19/2011 AUDIE STACK APRN 008.8 Gastroenteritis, Viral 04/19/2011 KWABENA KEY MD 008.8 Gastroenteritis, Viral 05/13/2011 PJ JEROME APRN 845.00 Sprain/strain Ankle 05/13/2011 845.00 Sprain/ strain Ankle 05/13/2011 845.00 Sprain/ strain Ankle 05/13/2011 845.00 Sprain/ strain Ankle 05/13/2011 845.00 Sprain/ strain Ankle 05/13/2011 JOSIE ABRAMS DO K 845.00 Sprain/strain Ankle 05/13/2011 MORRO VALDIVIA APRN 845.00 Sprain/strain Ankle 05/13/2011 845.00 Sprain/ strain Ankle 05/13/2011 845.00 Sprain/ strain Ankle 05/13/2011 845.00 Sprain/ strain Ankle 05/13/2011 845.00 Sprain/ strain Ankle 05/13/2011 RAJOTTE INSPECTOR FINAL ASSEMBLY CONVEYOR LINE, PJ A 845.00 Sprain/strain Ankle 05/13/2011 ABRAMS DO, JOSIE [...] Conjunctivitis Unspecified 06/03/2011 372.30 Conjunctivitis Unspecified 06/03/2011 PJ JEROME APRN A 372.30 Conjunctivitis Unspecified 06/03/2011 ABRAMS DO, [...] And Abscess Of Unspecified Sites 10/02/2011 ABRAMS DOTONYA K 682.9 Cellulitis And Abscess Of Unspecified [...] DOTONYA K 110.4 Dermatophytosis Of Foot 10/15/2011 LUI WONG APRN 110.4 Dermatophytosis Of Foot 10/15/2011 ABRAMS JOSIE RODRIGUEZ K 110.4 Dermatophytosis Of Foot 10/15/2011 AUDIE STACK APRN 110.4 Dermatophytosis Of Foot 10/15/2011 AUDIE STACK APRN 110.4 Dermatophytosis Of Foot 10/15/2011 KWABENA KEY MD 110.4 Dermatophytosis Of Foot 10/21/2011 PJ JEROME APRN 493.92 Asthma (acute) Exacerbation 10/21/2011 493.92 Asthma (acute ) Exacerbation 10/21/2011 493.92 Asthma (acute ) Exacerbation 10/21/2011 493.92 Asthma (acute ) Exacerbation 10/21/2011 493.92 Asthma (acute ) Exacerbation 10/21/2011 JOSIE ABRAMS DO 493.92 Asthma (acute) Exacerbation 10/21/2011 MORRO VALDIVIA APRN 493.92 Asthma (acute) Exacerbation 10/21/2011 493.92 Asthma (acute ) Exacerbation 10/21/2011 493.92 Asthma (acute ) Exacerbation 10/21/2011 493.92 Asthma (acute ) Exacerbation 10/21/2011 493.92 Asthma (acute ) Exacerbation 10/21/2011 PJ JEROME APRN A 493.92 Asthma (acute) Exacerbation 10/21/2011 JOSIE ABRAMS DO 493.92 Asthma (acute) Exacerbation 10/21/2011 JOSIE ABRAMS DO K 493.92 Asthma (acute) Exacerbation 10/21/2011 JOSIE ABRAMS DO 493.92 Asthma (acute) Exacerbation 10/21/2011 LUI WONG APRN 493.92 Asthma (acute) Exacerbation 10/21/2011 JOSIE ABRAMS DO 493.92 Asthma (acute) Exacerbation 10/21/2011 AUDIE STACK APRN 493.92 Asthma (acute) Exacerbation 10/21/2011 AUDIE STACK APRN 493.92 Asthma (acute) Exacerbation 10/21/2011 KWABENA KEY MD 493.92 Asthma (acute) Exacerbation 10/30/2011 IFRAH JEROME APRNYL A 682.6 CELLULITIS AND ABSCESS OF LEG [...] And Abscess Of Leg Except Foot 10/30/2011 WESLEY WONG APRNINA R 706.1 ACNE 10/30/2011 ABRAMS DO, JOSIE K 682.6 Cellulitis And Abscess Of Leg Except Foot 10/30/2011 JOSE ALBERTO DO, JOSIE K 706.1 ACNE 10/30/2011 AUDIE [...] APRN 342.00 Hemiflaccidity Of Left Side 11/13/2011 JOSIE ABRAMS DO 342.00 Hemiflaccidity Of Left Side 11/13/2011 ABRAMS DO, JOSIE [place] 342.00 Hemiflaccidity Of Left Side 11/13/2011 ABRAMS DO, JOSIE [place] 342.00 Hemiflaccidity Of Left Side 11/13/2011 LUI [...] V04.89 GARDASIL (HPV) DX 12/04/2011 V04.89 GARDASIL (HPV ) DX 12/04/2011 V04.89 GARDASIL (HPV ) DX 12/04/2011 V04.89 GARDASIL (HPV ) DX 12/04/2011 V04.89 GARDASIL (HPV ) DX 12/04/2011 JOSIE ABRAMS DO V04.89 GARDASIL (HPV) DX 12/04/2011 MORRO VALDIVIA APRN V04.89 GARDASIL (HPV) DX 12/04/2011 V04.89 GARDASIL (HPV ) DX 12/04/2011 V04.89 GARDASIL (HPV ) DX 12/04/2011 V04.89 GARDASIL (HPV ) DX 12/04/2011 V04.89 GARDASIL (HPV ) DX 12/04/2011 PJ JEROME APRN V04.89 GARDASIL (HPV) DX 12/04/2011 ABRAMS DO, JOSIE K V04.89 GARDASIL (HPV) DX 12/04/2011 JOSE ALBERTO RODRIGUEZ, JOSIE K V04.89 GARDASIL (HPV) DX 12/04/2011 ABRAMS DO, JOSIE K V04.89 GARDASIL (HPV) DX 12/04/2011 LUI WONG APRN V04.89 GARDASIL (HPV) DX 12/04/2011 JOSIE ABRAMS DO V04.89 GARDASIL (HPV) DX 12/04/2011 AUDIE STACK APRN V04.89 GARDASIL (HPV) DX 12/04/2011 AUDIE STACK APRN V04.89 GARDASIL (HPV) DX 12/04/2011 KWABENA KEY MD V04.89 GARDASIL (HPV) DX 12/12/2011 PJ JEROME APRN 487.1 INFLUENZA WITH OTHER RESPIRATORY MANIFESTATIONS 12/12/2011 487.1 INFLUENZA WITH OTHER RESPIRATORY MANIFESTATIONS 12/12/2011 487.1 INFLUENZA WITH OTHER RESPIRATORY MANIFESTATIONS 12/12/2011 487.1 INFLUENZA WITH OTHER RESPIRATORY MANIFESTATIONS 12/12/2011 487.1 INFLUENZA WITH OTHER RESPIRATORY MANIFESTATIONS 12/12/2011 JOSIE ABRAMS DO K 487.1 Influenza With Other Respiratory Manifestations 12/12/2011 MORRO VALDIVIA APRN 487.1 Influenza With Other Respiratory Manifestations 12/12/2011 487.1 Influenza With Other Respiratory Manifestations 12/12/2011 487.1 Influenza With Other Respiratory Manifestations 12/12/2011 487.1 Influenza With Other Respiratory Manifestations 12/12/2011 487.1 Influenza With Other Respiratory Manifestations 12/12/2011 PJ JEROME APRN A 487.1 Influenza With Other Respiratory Manifestations 12/12/2011 ABRAMS TONY RODRIGUEZA K 487.1 Influenza With Other Respiratory Manifestations 12/12/2011 ABRAMS DOTONYA K 487.1 Influenza With Other Respiratory Manifestations 12/12/2011 ABRAMS TONY RODRIGUEZA K 487.1 Influenza With Other Respiratory Manifestations 12/12/2011 LUI WONG APRN R 487.1 Influenza With Other Respiratory Manifestations 12/12/2011 TONY ABRAMS DOA K 487.1 Influenza With Other Respiratory Manifestations 12/12/2011 AUDIE STACK APRN 487.1 Influenza With Other Respiratory Manifestations 12/12/2011 AUDIE STACK APRN 487.1 Influenza With Other Respiratory Manifestations 12/12/2011 SHAHID MARCH, KWABENA 487.1 Influenza With Other Respiratory Manifestations 12/24/2011 PJ JEROME APRN A 079.99 VIRAL SYNDROME 12/24/2011 IFRAH JEROME APRNYL A 787.03 VOMITING ALONE 12/24/2011 079.99 VIRAL [...] APRN A 787.03 Vomiting Alone 12/24/2011 ABRAMS DO JOSIE K 079.99 Viral Syndrome 12/24/2011 ABRAMS DO JOSIE K 787.03 Vomiting Alone 12/24/2011 ABRAMS DO, JOSIE K 079.99 Viral Syndrome 12/24/2011 ABRAMS DO JOSIE K 787.03 Vomiting Alone 12/24/2011 ABRAMS DO JOSIE K 079.99 Viral Syndrome 12/24/2011 ABRAMS DO, JOSIE K 787.03 Vomiting Alone 12/24/2011 WESLEY WONG APRNINA R 079.99 Viral Syndrome 12/24/2011 WESLEY WONG APRNINA R 787.03 Vomiting Alone 12/24/2011 JOSIE ABRAMS DO 079.99 Viral Syndrome 12/24/2011 TONY ABRAMS DOA K 787.03 Vomiting Alone 12/24/2011 AUDIE STACK APRN [...] V20.2 WELL CHILD 12/25/2011 TONY ABRAMS DOA K 008.8 Gastroenteritis, Viral 12/25/2011 TONY ABRAMS DOA K V20.2 WELL CHILD 12/25/2011 MORRO VALDIVIA APRN R 008.8 Gastroenteritis, Viral 12/25/2011 MORRO VALDIVIA APRN R V20.2 WELL CHILD 12/25/2011 008.8 Gastroenteritis, Viral 12/25/2011 V20.2 WELL CHILD 12/25/2011 008.8 Gastroenteritis, Viral 12/25/2011 V20.2 WELL CHILD 12/25/2011 008.8 Gastroenteritis, Viral 12/25/2011 V20.2 WELL CHILD 12/25/2011 008.8 Gastroenteritis, Viral 12/25/2011 V20.2 WELL CHILD 12/25/2011 IFRAH JEROME APRNYL A 008.8 Gastroenteritis, Viral 12/25/2011 JUSTUS DEGROOT PJ A V20.2 WELL CHILD 12/25/2011 TONY ABRAMS DOA K 008.8 Gastroenteritis, Viral 12/25/2011 TONY ABRAMS DOA K V20.2 WELL CHILD 12/25/2011 TONY ABRAMS DOA K 008.8 Gastroenteritis, Viral 12/25/2011 ABRAMS DO, JOSIE K V20.2 WELL CHILD 12/25/2011 ABRAMS DO, JOSIE K 008.8 Gastroenteritis, Viral 12/25/2011 ABRAMS DO, JOSIE K V20.2 WELL CHILD 12/25/2011 MARVIN INSPECTOR FINAL ASSEMBLY CONVEYOR LINE, LIU R 008.8 Gastroenteritis, Viral 12/25/2011 MARVIN INSPECTOR FINAL ASSEMBLY CONVEYOR LINE, LUI R V20.2 WELL CHILD 12/25/2011 ABRAMS DO, JOSIE K 008.8 Gastroenteritis, Viral 12/25/2011 ABRAMS DO, JOSIE K V20.2 WELL CHILD 12/25/2011 SREEKANTH INSPECTOR FINAL ASSEMBLY CONVEYOR LINE, AUDIE Prasad 008.8 Gastroenteritis, Viral 12/25/2011 SREEKANTH INSPECTOR FINAL ASSEMBLY CONVEYOR LINE, AUDIE T V20.2 WELL CHILD 12/25/2011 SREEKANTH DEGROOT, AUDIE Prasad 008.8 Gastroenteritis, Viral 12/25/2011 SREEKANTH INSPECTOR FINAL ASSEMBLY CONVEYOR LINE, AUDIE T V20.2 WELL CHILD 12/25/2011 KWABENA KEY MD 008.8 Gastroenteritis, Viral 12/25/2011 KWABENA KEY MD V20.2 WELL CHILD 12/30/2011 PJ JEROME APRN A 462 PHARYNGITIS ACUTE 12/30/2011 IFRAH JEROME APRNYL A 786.2 COUGH 12/30/2011 PJ JEROME APRN A V65.2 PERSON FEIGNING ILLNESS 12/30/2011 462 PHARYNGITIS ACUTE 12/30/2011 786.2 COUGH 12/30/2011 V65.2 PERSON FEIGNING ILLNESS 12/30/2011 462 PHARYNGITIS ACUTE 12/30/2011 786.2 COUGH 12/30/2011 V65.2 PERSON FEIGNING ILLNESS 12/30/2011 462 PHARYNGITIS ACUTE 12/30/2011 786.2 cough 12/30/2011 V65.2 PERSON FEIGNING ILLNESS 12/30/2011 462 PHARYNGITIS ACUTE 12/30/2011 786.2 cough 12/30/2011 V65.2 PERSON FEIGNING ILLNESS 12/30/2011 JOSIE ABRAMS DO K 462 Pharyngitis Acute 12/30/2011 ABRAMS DOTONYA K 786.2 Cough 12/30/2011 ABRAMS TONY RODRIGUEZA K V65.2 PERSON FEIGNING ILLNESS 12/30/2011 MORRO VALDIVIA APRN 462 Pharyngitis Acute 12/30/2011 SKIP INSPECTOR FINAL ASSEMBLY CONVEYOR LINE, MORRO R 786.2 Cough 12/30/2011 SKIP QUINONESN, [...] JOSIE K V65.2 PERSON FEIGNING ILLNESS 12/30/2011 ABRMAS DO, JOSIE K 462 Pharyngitis Acute 12/30/2011 ABRAMS DO, JOSIE K 786.2 Cough 12/30/2011 ABRAMS DO, JOSIE K V65.2 PERSON FEIGNING ILLNESS 12/30/2011 MARVIN DEGROOT, LUI R 462 Pharyngitis Acute 12/30/2011 MARVIN INSPECTOR FINAL ASSEMBLY CONVEYOR LINE, LUI R 786.2 Cough 12/30/2011 MARVIN INSPECTOR FINAL ASSEMBLY CONVEYOR LINE, LUI R V65.2 PERSON FEIGNING ILLNESS 12/30/2011 ABRAMS DO, JOSIE K 462 Pharyngitis Acute 12/30/2011 ABRAMS DO, JOSIE K 786.2 Cough 12/30/2011 ABRAMS DO, JOSIE K V65.2 PERSON FEIGNING ILLNESS 12/30/2011 SREEKANTH DEGROOT, AUDIE T 462 Pharyngitis Acute 12/30/2011 SREEKANTH DEGROOT, AUDIE T 786.2 Cough 12/30/2011 SREEKANTH DEGROOT, AUDIE T V65.2 PERSON FEIGNING ILLNESS 12/30/2011 AUDIE STACK APRN T 462 Pharyngitis Acute 12/30/2011 AUDIE STACK APRN T 786.2 Cough 12/30/2011 SREEKANTH DEGROOT, AUDIE T V65.2 PERSON FEIGNING ILLNESS 12/30/2011 KWABENA KEY MD 462 Pharyngitis Acute 12/30/2011 KWABENA KEY MD 786.2 Cough 12/30/2011 KWABENA KEY MD V65.2 PERSON FEIGNING ILLNESS 01/21/2012 466.0 BRONCHITIS, ACUTE 01/21/2012 466.0 BRONCHITIS, ACUTE 01/21/2012 466.0 BRONCHITIS, ACUTE 01/21/2012 466.0 BRONCHITIS, ACUTE 01/21/2012 JOSE ALBERTO RODRIGUEZ JOSIE K 466.0 Bronchitis, Acute 01/21/2012 MORRO VALDIVIA APRN R 466.0 Bronchitis, Acute 01/21/2012 466.0 Bronchitis, Acute 01/21/2012 466.0 Bronchitis, Acute 01/21/2012 466.0 Bronchitis, Acute 01/21/2012 466.0 Bronchitis, Acute 01/21/2012 PJ JEROME APRN A 466.0 Bronchitis, Acute 01/21/2012 ABRAMS DO, JOSIE K 466.0 Bronchitis, Acute 01/21/2012 ABRAMS DO, JOSIE K 466.0 Bronchitis, Acute 01/21/2012 ABRAMS DO JOSIE K 466.0 Bronchitis, Acute 01/21/2012 LUI WONG APRN R 466.0 Bronchitis, Acute 01/21/2012 ABRAMS DO, JOSIE K 466.0 Bronchitis, Acute 01/21/2012 AUDIE STACK APRN T 466.0 Bronchitis, Acute 01/21/2012 AUDIE STACK APRN T 466.0 Bronchitis, Acute 01/21/2012 KWABENA KEY MD 466.0 Bronchitis, Acute 03/03/2012 780.79 fatigue 03/03/2012 785.6 LYMPHADENOPATHY 03/03/2012 ABRAMS , JOSIE K 780.79 fatigue 03/03/2012 ABRAMS DO [...] DO, JOSIE K 785.6 LYMPHADENOPATHY 03/03/2012 MARVIN DEGROOT LUI R 780.79 FATIGUE 03/03/2012 MARVIN DEGROOT, LUI R 785.6 LYMPHADENOPATHY 03/03/2012 ABRAMS DO, JOSIE K 780.79 FATIGUE 03/03/2012 ABRAMS DO, JOSIE K 785.6 LYMPHADENOPATHY 03/03/2012 AUDIE STACK APRN 780.79 FATIGUE 03/03/2012 AUDIE STACK APRN 785.6 LYMPHADENOPATHY 03/03/2012 AUDIE SATCK APRN 780.79 FATIGUE 03/03/2012 AUDIE STACK APRN 785.6 LYMPHADENOPATHY 03/03/2012 KWABENA KEY MD 780.79 FATIGUE 03/03/2012 KWABENA KEY MD 785.6 LYMPHADENOPATHY 03/10/2012 TONY ABRAMS DOA K 465.9 UPPER RESPIRATORY INFECTION 03/10/2012 MORRO VALDIVIA APRN R 465.9 UPPER RESPIRATORY INFECTION 03/10/2012 465.9 UPPER RESPIRATORY INFECTION 03/10/2012 465.9 UPPER RESPIRATORY INFECTION 03/10/2012 465.9 UPPER RESPIRATORY INFECTION 03/10/2012 465.9 UPPER RESPIRATORY INFECTION 03/10/2012 PJ JEROME APRN A 465.9 UPPER RESPIRATORY INFECTION 03/10/2012 ABRAMS DO, JOSIE K 465.9 UPPER RESPIRATORY INFECTION 03/10/2012 ABRAMS DO, JOSIE K 465.9 UPPER RESPIRATORY INFECTION 03/10/2012 ABRAMS DO, JOSIE K 465.9 UPPER RESPIRATORY INFECTION 03/10/2012 MARVIN DEGROOT, LUI R 465.9 UPPER RESPIRATORY INFECTION 03/10/2012 ABRAMS [...] PJ A 724.2 LOWER BACK PAIN 04/06/2012 EARLE ZANE, PJ A 789.07 DIFFUSE ABDOMINAL PAIN 04/06/2012 ABRAMS DO, JOSIE K 724.2 LOWER BACK PAIN 04/06/2012 ABRAMS DO, JOSIE K 789.07 DIFFUSE ABDOMINAL PAIN 04/06/2012 ABRAMS DO, JOSIE K 724.2 LOWER BACK PAIN 04/06/2012 ABRAMS DO, JOSIE K 789.07 DIFFUSE ABDOMINAL PAIN 04/06/2012 ABRAMS DO, JOSIE K 724.2 LOWER BACK PAIN 04/06/2012 ABRAMS DO, JOSIE K 789.07 DIFFUSE ABDOMINAL PAIN 04/06/2012 MARVIN DEGROOT LUI R 724.2 LOWER BACK PAIN 04/06/2012 WESLEY [...] ABRAMS DO, JOSIE K 372.30 CONJUNCTIVITIS 05/11/2012 MARVIN DEGROOT LUI R 372.30 CONJUNCTIVITIS 05/11/2012 ABRAMS DO, JOSIE K 372.30 CONJUNCTIVITIS 05/11/2012 AUDIE STACK APRN 372.30 CONJUNCTIVITIS 05/11/2012 AUDIE STACK APRN 372.30 CONJUNCTIVITIS 05/11/2012 KWABENA KEY MD 372.30 CONJUNCTIVITIS 05/28/2012 787.02 nausea 05/28/2012 787.02 nausea 05/28/2012 787.02 nausea 05/28/2012 PJ JEROME APRN 787.02 NAUSEA 05/28/2012 ABRAMS DO, JOSIE K 787.02 NAUSEA 05/28/2012 ABRAMS DO, JOSIE K 787.02 NAUSEA 05/28/2012 ABRAMS DO, JOSIE K 787.02 NAUSEA 05/28/2012 MARVIN DEGROOT LUI R 787.02 NAUSEA 05/28/2012 ABRAMS DO, JOSIE K 787.02 NAUSEA 05/28/2012 AUDIE STACK APRN 787.02 NAUSEA 05/28/2012 AUDIE STACK APRN 787.02 NAUSEA 05/28/2012 KWABENA KEY MD 787.02 NAUSEA 06/22/2012 382.00 ACTUE OTITIS MEDIA (BOTH) 06/22/2012 RAJOTTE INSPECTOR FINAL ASSEMBLY CONVEYOR LINE, PJ A 382.00 ACTUE OTITIS MEDIA (BOTH) 06/22/2012 JOSE ALBERTO TONY RODRIGUEZA K 382.00 ACTUE OTITIS MEDIA (BOTH) 06/22/2012 ABRAMS , JOSIE K 382.00 ACTUE OTITIS MEDIA (BOTH) 06/22/2012 JOSE ALBERTO RODRIGUEZ, JOSIE K 382.00 ACTUE OTITIS MEDIA (BOTH) 06/22/2012 LUI WONG APRN R 382.00 ACTUE OTITIS MEDIA (BOTH) 06/22/2012 JOSIE ABRAMS DO K 382.00 ACTUE OTITIS MEDIA (BOTH) 06/22/2012 AUDIE STACK APRN 382.00 ACTUE OTITIS MEDIA (BOTH) 06/22/2012 AUDIE STACK APRN 382.00 ACTUE OTITIS MEDIA (BOTH) 06/22/2012 KWABENA KEY MD 382.00 ACTUE OTITIS MEDIA (BOTH) 04/20/2013 LIZZ MARCH, RIGO R Ot 682.9 05/04/2013 LUI WONG APRN R 706.2 SEBACEOUS CYST 05/04/2013 JOSIE ABRAMS DO 706.2 SEBACEOUS CYST 05/04/2013 AUDIE STACK APRN T 706.2 SEBACEOUS CYST 05/04/2013 AUDIE STACK APRN 706.2 SEBACEOUS CYST 05/04/2013 KWABENA KEY MD 706.2 SEBACEOUS CYST 06/01/2013 JACOB RAHMAN Ot 845.00 06/01/2013 JACOB RAHMAN Ot 959.7 06/01/2013 JACOB RAHMAN Ot E000.8 06/01/2013 JACOB RAHMAN Ot E006.0 06/01/2013 JACOB RAHMAN Ot E849.4 06/01/2013 JACOB RAHMAN Ot E885.9 07/06/2013 DEMI HAYNES APRN Ot [...] 11/17/2013 KWABENA KEY MD 704.8 FOLLICULITIS 12/03/2013 SHAHID MARCH, KWABENA 682.6 CELLULITIS AND ABSCESS OF LEG EXCEPT [...] DEMI HAYNES APRN Ot 784.0 05/01/2015 AUDIE STACKP Ot R56.9 05/01/2015 JACOB RAHMAN Ot F17.210 [...] NONVE 06/29/2016 GUY MAYORGA MD Ot Y92.838 [facility] [address] [address] 06/29/2016 GUY MAYORGA MD Ot Y99.8 OTHER EXTERNAL CAUSE STATUS 07/01/2016 GUY MAYORGA MD Ot M79.662 PAIN IN LEFT LOWER LEG 07/01/2016 GUY MAYORGA MD Ot S80.862A INSECT BITE (NONVENOMOUS), LEFT LOWER LE 07/01/2016 GUY MAYORGA MD Ot W57.XXXA BIT/STUNG BY NONVENOM INSECT OTH NONVE 07/01/2016 GUY MAYORGA MD Ot Y92.838 [facility] [address] [address] 07/01/2016 GUY MAYORGA MD [...] NONVE 07/01/2016 GUY MAYORGA MD Ot Y92.838 [facility] [address] [address] 07/01/2016 GUY MAYORGA MD [...] NONVE 07/05/2016 GUY MAYORGA MD Ot Y92.838 [facility] [address] [address] 07/05/2016 GUY MAYORGA MD Ot Y99.8 OTHER EXTERNAL CAUSE STATUS Procedures Code Description [place] [address] INFLUENZA A & B (IN-HOUSE) 12/12/2011 37028 XRAY CHEST 2 VIEW 01/21/2012 33303 INFLUENZA A & B (IN-HOUSE) 02/27/2012 82931 MONO TEST (IN-HOUSE) 03/03/2012 28614 ROUTINE VENIPUNCTURE 12/24/2012 65447 CBC 12/24/2012 60016 MYCOPLASMA ANTIBODY 12/25/2012 07130 ROUTINE VENIPUNCTURE 11/15/2013 50018 CULTURE WOUND (AEROBIC) 11/15/2013 98138 CBC 11/15/2013 0720098 GFR CALC (RESULT ONLY) 11/15/2013 98354 CMP 11/15/2013 59797 CULTURE NASAL 11/19/2013 31545 ROUTINE VENIPUNCTURE 12/03/2013 91653 IMMUNOGLOBULIN IGG/IGA/IGM 12/06/2013 Results Test Result Range Complete blood count (CBC) with automated white blood cell (WBC) differential - 06/29/16 07:02 Blood leukocytes automated count (number/volume) 12.2 10*3/uL 4.3-11.0 Blood erythrocytes automated count (number/volume) 5.42 10*6/uL 4.35-5.85 Venous blood hemoglobin measurement (mass/volume) 15.9 [...] Automated blood platelet mean volume measurement 9.4 [foz_us] 7.4-10.4 Automated blood neutrophils/100 leukocytes 63 % [...] Serum or plasma sodium measurement (moles/volume) 138 mmol/L 135-145 Serum or plasma potassium measurement (moles/volume) 4.8 mmol/L 3.6-5.0 Serum or plasma chloride measurement (moles/volume) 104 mmol/L 98-107 Carbon dioxide 25 mmol/L 21-32 Serum or plasma anion gap determination (moles/volume) 9 mmol/L 5-14 Serum or plasma urea nitrogen measurement (mass/volume) 16 mg/dL 7-18 Serum or plasma creatinine measurement (mass/volume) 0.84 mg/dL 0.60-1.30 Serum or plasma urea nitrogen/creatinine mass [...] Blood erythrocyte morphology finding identification NORMAL NRG Complete blood count (CBC) with automated white blood cell (WBC) differential - 12/21/16 20:30 Blood leukocytes automated count (number/volume) 8.7 10*3/uL 4.3-11.0 Blood erythrocytes automated count (number/volume) 5.29 10*6/uL 4.35-5.85 Venous blood hemoglobin measurement (mass/volume) 16.0 g/dL 13.3-17.7 Blood hematocrit (volume fraction) 46 % 40-54 Automated erythrocyte mean corpuscular volume 86 [foz_us] 80-99 Automated erythrocyte mean corpuscular hemoglobin (mass per erythrocyte) 30 pg 25-34 Automated erythrocyte mean corpuscular hemoglobin concentration measurement ( mass/volume) 35 g/dL 32-36 Automated erythrocyte distribution width ratio 12.4 % 10.0-14.5 Automated blood platelet count (count/volume) 257 10*3/uL 130-400 Automated blood platelet mean volume measurement 9.8 [foz_us] 7.4-10.4 Automated blood neutrophils/100 leukocytes 68 % 42-75 Automated blood lymphocytes/100 leukocytes 18 % 12-44 Blood monocytes/100 leukocytes 11 % 0-12 Automated blood eosinophils/100 leukocytes 2 % 0-10 Automated blood basophils/100 leukocytes 1 % 0-10 Blood neutrophils automated count (number/volume) 5.9 10*3 1.8-7.8 Blood lymphocytes automated count (number/volume) 1.6 10*3 1.0-4.0 Blood monocytes automated count (number/volume) 1.0 10*3 0.0-1.0 Automated eosinophil count 0.2 10*3/uL 0.0-0.3 Automated blood basophil count (count/volume) 0.1 10*3/uL 0.0-0.1 Comprehensive metabolic panel - 12/21/16 20:30 Serum or plasma sodium measurement (moles/volume) 139 mmol/L 135-145 Serum or plasma potassium measurement (moles/volume) 4.2 mmol/L 3.6-5.0 Serum or plasma chloride measurement (moles/volume) 105 mmol/L 98-107 Carbon dioxide 23 mmol/L 21-32 Serum or plasma anion gap determination (moles/volume) 11 mmol/L 5-14 Serum or plasma urea nitrogen measurement (mass/volume) 12 mg/dL 7-18 Serum or plasma creatinine measurement (mass/volume) 0.87 mg/dL 0.60-1.30 Serum or plasma urea nitrogen/creatinine mass ratio 14 NRG Serum or plasma creatinine measurement with calculation of estimated glomerular filtration rate > NRG Serum or plasma glucose measurement (mass/volume) 100 mg/dL 70-105 Serum or plasma calcium measurement (mass/volume) 9.4 mg/dL 8.5-10.1 Serum or plasma total bilirubin measurement (mass/volume) 0.3 mg/dL 0.1-1.0 Serum or plasma alkaline phosphatase measurement (enzymatic activity/volume) 53 U/L 40-136 Serum or plasma aspartate aminotransferase measurement (enzymatic activity/ volume) 20 U/L 5-34 Serum or plasma alanine aminotransferase measurement (enzymatic activity/volume ) 19 U/L 0-55 Serum or plasma protein measurement (mass/volume) 6.9 g/dL 6.4-8.2 Serum or plasma albumin measurement (mass/volume) 4.2 g/dL 3.2-4.5 Serum or plasma troponin i.cardiac measurement (mass/volume) - 12/21/16 20:30 Serum or plasma troponin i.cardiac measurement (mass/volume) < ng/ mL <0.30 Serum or plasma C reactive protein measurement (mass/volume) - 12/21/16 20:30 Serum or plasma C reactive protein measurement (mass/volume) 0.51 mg /dL 0.00-0.50 Serum or plasma ethanol measurement (mass/volume) - 12/21/16 20:30 Serum or plasma ethanol measurement (mass/volume) < mg/dL <10 Encounters ACCT No. Visit Date/Time Discharge Status Pt. Type Provider Facility Loc./Unit Complaint [id number] 12/03/2013 08:59:00 12/03/2013 23:59:59 CLS Outpatient KWABENA KEY MD [id number] 11/18/2013 16:27:00 11/18/2013 23:59:59 CLS Outpatient AUDIE STACK APRN [id number] 11/15/2013 12:27:00 11/15/2013 23:59:59 CLS Outpatient AUDIE STACK APRN [id number] 10/04/2013 17:54:00 10/04/2013 23:59:59 CLS Outpatient JOSIE ABRAMS DO [id number] 05/04/2013 13:53:00 05/04/2013 23:59:59 CLS Outpatient LUI WONG APRN Mary [id number] 04/14/2013 15:51:00 04/14/2013 23:59:59 CLS Outpatient JOSIE ABRAMS DO [id number] 12/24/2012 10:50:00 12/24/2012 23:59:59 CLS Outpatient JOSIE ABRAMS DO Mayuri [id number] 12/24/2012 10:50:00 12/24/2012 23:59:59 CLS Outpatient JOSIE ABRAMS DO [id number] 10/14/2012 11:00:00 10/14/2012 23:59:59 CLS Outpatient EARLMatheus QUINONESPJ Chew [id number] 05/11/2012 13:29:00 05/11/2012 23:59:59 CLS Outpatient [id number] 04/06/2012 13:37:00 04/06/2012 23:59:59 CLS Outpatient SKIP DEGROOT MOROR Hernandez [id number] 03/10/2012 15:50:00 03/10/2012 23:59:59 CLS Outpatient JOSIE ABRAMS DO [id number] 03/03/2012 14:46:00 03/03/2012 23:59:59 CLS Outpatient [id number] 02/27/2012 15:50:00 02/27/2012 23:59:59 CLS Outpatient [id number] 01/28/2012 09:30:00 01/28/2012 23:59:59 CLS Outpatient [id number] 01/21/2012 13:20:00 01/21/2012 23:59:59 CLS Outpatient [id number] 12/12/2011 13:54:00 12/12/2011 23:59:59 CLS Outpatient JUSTUS DEGROOT PJ A [id number] 06/22/2012 14:29:00 Document Registration [id number] 06/12/2012 14:56:00 Document Registration [id number] 05/28/2012 14:39:00 Document Registration [id number] 12/21/2016 19:38:00 12/21/2016 21:41:00 DIS Emergency JUAN JOSE MARCH, PALU Prasad [facility] ER SOB, CHEST PAIN [id number] 08/03/2016 01:34:00 08/03/2016 02:05:00 DIS Emergency MIKALA LATHAM DO Mayuri [facility] ER LEFT ANKLE INJURY [id number] 06/29/2016 05:54:00 06/29/2016 08:12:00 DIS Emergency GUY MAYORGA MD [facility] ER LEFT LEG PAIN FROM KNEE DOWN TO TOES [id number] 06/14/2015 19:20:00 06/14/2015 20:02:00 DIS Emergency DEMI HAYNES APRN [facility] ER SKIN RASH [id number] 05/01/2015 19:05:00 05/01/2015 22:02:00 DIS Emergency JACOB RAHMAN [facility] ER DIZZINESS [id number] 01/13/2015 08:14:00 01/13/2015 23:59:59 CLS Outpatient AUDIE STACK [facility] RT [id number] 11/07/2014 17:15:00 11/07/2014 18:21:00 DIS Emergency DEMI HAYNES APRN [facility] ER [id number] 10/28/2014 13:06:00 10/28/2014 14:55:00 DIS Emergency DEMI HAYNES APRN [facility] ER [id number] 10/20/2014 13:47:00 10/20/2014 15:43:00 DIS Emergency JACOB RAHMAN [facility] ER [id number] 06/17/2014 17:07:00 06/17/2014 17:07:00 CAN Preadmit GUY MAYORGA MD [facility] ER [id number] 07/06/2013 21:02:00 07/06/2013 22:15:00 DIS Emergency DEMI HAYNES APRN [facility] ER [id number] 06/01/2013 11:24:00 06/01/2013 13:16:00 DIS Emergency JACOB RAHMAN [facility] ER [id number] 04/20/2013 13:42:00 04/20/2013 14:22:00 DIS Emergency RIGO ZAMUDIO MD [facility] ER [id number] 01/24/2017 21:20:00 ACT Emergency LILLIANA DODSON MD [facility] ER SOB,CONGESTION,SHARP PAIN IN LUNGS [id number] 10/20/2014 15:23:00 Document Registration [id number] 11/26/2011 15:59:00 Document Registration [id number] 11/22/2011 13:18:00 Document Registration [id number] 09/12/2011 01:19:00 Document Registration [id number] 04/06/2010 13:07:00 Document Registration
--- NOTE | 2017-01-24 21:42 | ED Cough/URI ---
General Chief Complaint: Cough/Cold/Flu Symptoms Stated Complaint: SOB,CONGESTION,SHARP PAIN IN LUNGS Nursing Triage Note: PT STATES HE HAS HAD A COUCH/CHEST PAIN AND SOA FOR 3 DAYS. HE HAS BEEN TAKING COUGH SYRUP AND BENADRYL WITH NO RELIEF. Source: patient Exam Limitations: no limitations History of Present Illness Time seen by provider: 21:33 Initial Comments Patient presents to ER by private conveyance with chief complaint of 4 days now he's had progressively worsening upper respiratory tract symptoms of cough, runny nose, cough productive of phlegm and pain on deep inspiration or coughing on the right side of his sternum anteriorly. His sister has asthma and has pneumonia presently as well as one of his best friends who comes over and hangs out every day has pneumonia and mono. The patient wants to be tested for mono and pneumonia just afraid he's got it now clear. He says he took a hit of his sister's albuterol which helped some with his breathing. He does not have a history of asthma himself or other lung disease. He does state and will smoke a pack every 2-3 days. No other significant medical history. He's had some chills but no documented fever. Patient is on chronic Bactrim therapy for his recurrent cysts all over his body and armpits. He has not been told whether or not he has a history of hidradenitis suppurativa. Allergies and Home Medications Allergies Coded Allergies: marijuana (Verified Allergy, Mild, 10/28/14) topiramate (Verified Allergy, Mild, 06/14/15) Home Medications Albuterol Sulfate 1 Puff Puff, 2 PUFF IH Q4H, #1 Ref 0 1 PUFF = 90 MCG Prescribed by: LILLIANA DODSON on 01/24/17 2215 Sulfamethoxazole/Trimethoprim 1 Each Tablet, 1 EACH PO BID, #14 Prescribed by: PAUL CA on 12/21/162127 Constitutional: chills, No fever, malaise EENTM: nose congestion, No hearing loss, No ear pain, No throat pain, No throat swelling Respiratory: cough, phlegm, No short of breath Cardiovascular: see HPI, chest pain, No palpitations, No syncope, No vascular heart diseas Gastrointestinal: No abdominal pain, No constipation, No diarrhea, No nausea Genitourinary: No discharge, No dysuria Skin: No pruritus, No rash Past Eloxmop-Csswss-Chwlxw Hx Patient Social History Alcohol Use: Occasionally Uses Number of Drinks Today: II Alcohol Beverage of Choice: Beer, Other Recreational Drug Use: No Type Used: Cigarettes, Electronic/Vapor 2nd Hand Smoke Exposure: Yes Recent Foreign Travel: No Contact w/Someone Who Travel: No Recent Infectious Disease Expo: No Recent Hopitalizations: No Physical Abuse: No Sexual Abuse: No Mistreated: No Fear: No Seasonal Allergies Seasonal Allergies: No Surgeries History of Surgeries: Yes (HYDROCELE, multiple procedures for incision and drainage of abscesses) Respiratory History of Respiratory Disorde: No Cardiovascular History of Cardiac Disorders: No Neurological History of Neurological Disord: Yes Neurological Disorders: Headaches /Migraines Reproductive System Hx Reproductive Disorders: No Sexually Transmitted Disease: No Genitourinary History of Genitourinary Disor: No Gastrointestinal History of Gastrointestinal Di: No Musculoskeletal History of Musculoskeletal Dis: No Endocrine History of Endocrine Disorders: No HEENT History of HEENT Disorders: No Cancer History of Cancer: No Psychosocial History of Psychiatric Problem: No Suicide Risk Score: 0 Integumentary History of Skin or Integumenta: Yes (MRSA HX, BACK BROKE OUT SORES) Skin/Integumentary Disorders: Recent Skin Changes Blood Transfusions History of Blood Disorders: No Family Medical History Significant Family History: No Pertinent Family Hx Physical Exam Vital Signs Vital Sign - Last 12Hours 01/24/17 21:32 Temp 97.7 Pulse 107 Resp 20 B/P (MAP) 149/80 (103) Capillary Refill : Less Than 3 Seconds General Appearance: WD/WN, mild distress Eyes: Bilateral Eye Normal Inspection, Bilateral Eye PERRL, Bilateral Eye EOMI HEENT: PERRL/EOMI, TMs normal, pharyngeal erythema, No tonsillar exudate Neck: non-tender, full range of motion, supple, normal inspection Respiratory: chest non-tender, lungs clear, normal breath sounds, no respiratory distress, no accessory muscle use Cardiovascular: normal peripheral pulses, regular rate, rhythm, no edema Neurologic/Psychiatric: alert, oriented x 3 Skin: normal color, warm/dry Progress/Results/Core Measures Suspected Sepsis Recent Fever Within 48 Hours: No Infection Criteria Present: Suspected New Infection New/Unexplained Altered Menta: No Sepsis Screen: No Definite Risk Sepsis Diagnosis: SIRS Temperature:97.7 Pulse: 107 Respiratory Rate: 20 Laboratory Tests 01/24/17 22:08: White Blood Count 12.0H Blood Pressure 149 /80 Mean: 103 Laboratory Tests 01/24/17 22:08: Platelet Count 245 Results/Orders Lab Results Laboratory Tests Test 01/24/17 21:45 01/24/17 22:08 Range/Units Group A Streptococcus Screen NEGATIVE NEGATIVE White Blood Count 12.0 H 4.3-11.0 10^3/uL Red Blood Count 5.02 4.35-5.85 10^6/uL Hemoglobin 15.0 13.3-17.7 G/DL Hematocrit 43 40-54 % Mean Corpuscular Volume 86 80-99 FL Mean Corpuscular Hemoglobin 30 25-34 PG Mean Corpuscular Hemoglobin Concent 35 32-36 G/DL Red Cell Distribution Width 12.1 10.0-14.5 % Platelet Count 245 130-400 10^3/uL Mean Platelet Volume 10.0 7.4-10.4 FL Neutrophils (%) (Auto) 74 42-75 % Lymphocytes (%) (Auto) 13 12-44 % Monocytes (%) (Auto) 10 0-12 % Eosinophils (%) (Auto) 3 0-10 % Basophils (%) (Auto) 0 0-10 % Neutrophils # (Auto) 8.9 H 1.8-7.8 X 10^3 Lymphocytes # (Auto) 1.5 1.0-4.0 X 10^3 Monocytes # (Auto) 1.2 H 0.0-1.0 X 10^3 Eosinophils # (Auto) 0.4 H 0.0-0.3 10^3/uL Basophils # (Auto) 0.0 0.0-0.1 10^3/uL Monoscreen NEGATIVE NEGATIVE My Orders Orders - LILLIANA DODSON Chest Pa/Lat (2 View) (01/24/17 21:39) Rapid Strep A Screen (01/24/17 21:39) Monotest (01/24/17 21:42) Cbc With Automated Diff (01/24/17 21:42) Vital Signs/I&O Vital Sign - Last 12Hours 01/24/17 21:32 Temp 97.7 Pulse 107 Resp 20 B/P (MAP) 149/80 (103) Capillary Refill : Less Than 3 Seconds Blood Pressure Mean: 103 Diagnostic Imaging Diagonstic Imaging: Xray Plain Films/CT/US/NM/MRI: chest (2v) Comments [facility]. [place], [place] NAME: KWABENA HUFFMAN [facility] REC#: [id number] PT STATUS: REG ER : 1995 PHYSICIAN: LILLIANA DODSON MD ADMIT DATE: 01/24/17/ER Draft Date of Exam:01/24/17 CHEST PA/LAT (2 VIEW) INDICATION: Cough. Chest pain. Shortness of air COMPARISON: 12/21/2016 FINDINGS: Frontal and lateral views of the chest demonstrate normal heart size and pulmonary vascularity. The lungs are clear. There are no signs of infiltrate, pleural effusions or pneumothoraces. The visualized osseous structures show no acute abnormalities. IMPRESSION: 1. No acute process. No signs of infiltrates, effusions or pneumothoraces. Dictated on workstation # [id number] Dict: 01/24/17 2147 Trans: 01/24/17 215 [facility] [id number] Interpreted by: LAKIA MATTSON MD Electronically signed by: Reviewed: Reviewed by Me Departure Impression Impression: Primary Impression: Upper respiratory infection Qualified Codes: J06.9 - Acute upper respiratory infection, unspecified Additional Impression: Bronchitis Disposition: 01 HOME, SELF-CARE Condition: Stable Departure-Patient Inst. Decision time for Depature: 22:59 Referrals: AUDIE STACK (PCP/Family) Primary Care Physician Patient Instructions: Acute Bronchitis, Adult (DC) Add. Discharge Instructions: Drink lots of fluids, blow your nose and keep your hands wash with soap and water. Use vapor rubs such as Vicks or Mentholatum. Use humidifiers especially while sleeping. Warm steamy showers can also help. Tylenol 1000 mg every 8 hours and/or ibuprofen 800 mg every 8 hours as needed for the body aches or fever. Typically this should get better in 7-10 days; if not follow up with your primary care physician. If you feel short of breath or have tightness in your chest you may take 2 puffs of the albuterol every 4 hours as needed. Discussed further care and management of your possible hidradenitis suppurativa with your primary care physician. All discharge instructions reviewed with patient and/or family. Voiced understanding. Scripts Albuterol Sulfate (PROAIR HFA) 1 Puff Puff 2 PUFF IH Q4H, #1 EACH 0 Refills 1 PUFF = 90 MCG Prov: LILLIANA DODSON 01/24/17 Copy Copies To 1: JOSIE ABRAMS TITUS J Jan 24, 2017 21:42
--- NOTE | 2017-01-24 21:51 | Diagnostic Imaging Report ---
INDICATION: Cough. Chest pain. Shortness of air COMPARISON: 12/21/2016 FINDINGS: Frontal and lateral views of the chest demonstrate normal heart size and pulmonary vascularity. The lungs are clear. There are no signs of infiltrate, pleural effusions or pneumothoraces. The visualized osseous structures show no acute abnormalities. IMPRESSION: 1. No acute process. No signs of infiltrates, effusions or pneumothoraces. Dictated by: Dictated on workstation # [id number]
[2017-01-24 22:15] LABS: BASOPHILS % (AUTO) 0 % (0-10); EOSINOPHILS # (AUTO) 0.4 10^3/uL (0.0-0.3); EOSINOPHILS % (AUTO) 3 % (0-10); LYMPHOCYTES # (AUTO) 1.5 X 10^3 (1.0-4.0); LYMPHOCYTES % (AUTO) 13 % (12-44); MEAN CORPUSCULAR HEMOGLOBIN 30 PG (25-34); MEAN CORPUSCULAR HGB CONC 35 G/DL (32-36); MEAN CORPUSCULAR VOLUME 86 FL (80-99); MONOCYTES # (AUTO) 1.2 X 10^3 (0.0-1.0); MONOCYTES % (AUTO) 10 % (0-12); NEUTROPHILS # (AUTO) 8.9 X 10^3 (1.8-7.8); NEUTROPHILS % (AUTO) 74 % (42-75); PLATELET COUNT 245 10^3/uL (130-400); RED BLOOD COUNT 5.02 10^6/uL (4.35-5.85); RED CELL DISTRIBUTION WIDTH 12.1 % (10.0-14.5)
[2017-01-24] MEDS ORDERED: RT-ALBUINH IH (22:15)
[2017-01-24 23:05] VITALS: BP 149/80
== END 2017-01-24 23:08 | disposition home or self-care (01) ==
LOC: EDUNIT# 21:19 → ER 21:20
DX: J40 Bronchitis, not specified as acute or chronic (principal); G43.909 Migraine, unspecified, not intractable, without status migrainosus; Z86.14 Personal history of Methicillin resistant Staphylococcus aureus infection; F17.210 Nicotine dependence, cigarettes, uncomplicated
CPT/HCPCS: 36415; 71020; 85025; 86308; 87430; 99282

== ENCOUNTER 2017-05-03 02:01 | Emergency (ER) | payer SELFPAY ==
[~2017-05-03] VITALS: Ht 172.7 cm; Wt 65.8 kg
[~2017-05-03 02:01] MED LIST changes: +RT-ALBUINH IH
[2017-05-03] MEDS ORDERED: SERT25TA PO (02:18)
[2017-05-03] MEDS ORDERED: LORA-404 PO (02:19)
--- NOTE | 2017-05-03 02:29 | ED Chest Pain ---
General Chief Complaint: Chest Pain Stated Complaint: CP Nursing Triage Note: PT PRESENTS TO ER WITH COMPLAINT OF CHEST PAIN FOR TWO HOURS. STATES THAT HE DOES HAVE ANXIETY, BUT TOOK HIS MEDICINE FOR THAT AND DOES NOT FEEL IT IS ANXIETY. STATES HE HAD CHEST PAIN LIKE THIS TWO MONTHS AGO Nursing Sepsis Screen: No Definite Risk Source: patient, old records Exam Limitations: no limitations Allergies and Home Medications Allergies Coded Allergies: marijuana (Verified Allergy, Mild, 10/28/14) topiramate (Verified Allergy, Mild, 06/14/15) Home Medications Albuterol Sulfate 1 Puff Puff, 2 PUFF IH Q4H 1 PUFF = 90 MCG Prescribed by: LILLIANA DODSON on 01/24/172214 Lorazepam 0.5 Mg Tablet, Unknown Dose PO TID PRN for ANXIETY, (Reported) Sulfamethoxazole/Trimethoprim 1 Each Tablet, 1 EACH PO BID Prescribed by: PAUL CA on 12/21/162127 Past Yhuytqr-Ffuqvl-Gseerb Hx Patient Social History Alcohol Use: Occasionally Uses Number of Drinks Today: II Alcohol Beverage of Choice: Beer, Other Recreational Drug Use: No Type Used: Cigarettes, Electronic/Vapor 2nd Hand Smoke Exposure: Yes Recent Foreign Travel: No Contact w/Someone Who Travel: No Recent Infectious Disease Expo: No Recent Hopitalizations: No Immunizations Up To Date PED Vaccines UTD: Yes Seasonal Allergies Seasonal Allergies: No Surgeries History of Surgeries: Yes (HYDROCELE, multiple procedures for incision and drainage of abscesses) Respiratory History of Respiratory Disorde: No Cardiovascular History of Cardiac Disorders: No Neurological History of Neurological Disord: Yes Neurological Disorders: Headaches /Migraines Reproductive System Hx Reproductive Disorders: No Sexually Transmitted Disease: No Genitourinary History of Genitourinary Disor: No Gastrointestinal History of Gastrointestinal Di: No Musculoskeletal History of Musculoskeletal Dis: No Endocrine History of Endocrine Disorders: No HEENT History of HEENT Disorders: No Cancer History of Cancer: No Psychosocial History of Psychiatric Problem: Yes Behavioral Health Disorders: Anxiety, Depression Integumentary History of Skin or Integumenta: Yes (MRSA HX, BACK BROKE OUT SORES) Skin/Integumentary Disorders: Recent Skin Changes Blood Transfusions History of Blood Disorders: No Family Medical History Significant Family History: No Pertinent Family Hx Physical Exam Vital Signs Vital Signs - First Documented 05/03/17 02:08 Temp 99.1 Pulse 82 Resp 20 B/P (MAP) 140/107 (118) Pulse Ox 97 O2 Delivery Room Air Capillary Refill : Less Than 3 Seconds Progress/Results/Core Measures Results/Orders My Orders Orders - PAUL INGRAM MD Ketorolac Injection (Toradol Injection) (05/03/17 02:30) Vital Signs/I&O Vital Sign - Last 12Hours 05/03/17 02:08 Temp 99.1 Pulse 82 Resp 20 B/P (MAP) 140/107 (118) Pulse Ox 97 O2 Delivery Room Air Blood Pressure Mean: 118 Departure Impression Impression: Primary Impression: Chest wall pain Disposition: HOME, SELF-CARE Condition: Improved Departure-Patient Inst. Decision time for Depature: 02:27 Referrals: [facility]/ROSIE (PCP) Primary Care Physician AUDIE STACK (Family) Primary Care Physician Patient Instructions: Chest Pain That Is Not Caused by the Heart (DC) Add. Discharge Instructions: For treatment of pain take ibuprofen up to 600 mg every 6 hours as needed. Add Tylenol (acetaminophen) up to 1000 mg every 6 hours as needed for additional pain relief. Return to care if symptoms are worsening or not improving as anticipated. Follow-up with your primary care provider early next week. Work toward quitting smoking. Consider a smoking cessation program such as the classes offered by [facility]. All discharge instructions reviewed with patient and/or family. Voiced understanding. PAUL INGRAM MD May 03, 2017 02:29
[2017-05-03] MEDS ORDERED: KETOROLAC 30 MG/ML VIAL IM ONE (02:30)
[2017-05-03 02:45] VITALS: BP 135/91
== END 2017-05-03 02:45 | disposition home or self-care (01) ==
LOC: EDUNIT# 02:01 → ER 02:03
DX: R07.89 Other chest pain (principal); F41.9 Anxiety disorder, unspecified; F32.9 Major depressive disorder, single episode, unspecified; G43.909 Migraine, unspecified, not intractable, without status migrainosus; F17.210 Nicotine dependence, cigarettes, uncomplicated; Z88.8 Allergy status to other drugs, medicaments and biological substances
CPT/HCPCS: 99285

== ENCOUNTER 2019-01-21 14:36 | Emergency (ER) | payer SELFPAY ==
[~2019-01-21] VITALS: Ht 175 cm; Wt 75.0 kg
[~2019-01-21 14:36] MED LIST changes: -BENZ-13 PO; +BENZ100C18 PO; +SERT25TA PO
[2019-01-21] MEDS ORDERED: ALPR0.5T7 (14:46)
[2019-01-21] MEDS ORDERED: SULF-222 (14:46)
--- NOTE | 2019-01-21 14:58 | ED Integumentary General ---
General Chief Complaint: Skin/Wound Problems Stated Complaint: ABSCESS ON MOUTH Nursing Triage Note: ARRIVED VIA AMB TO TRIAGE WITH COMPLAINTS OF A ABSCESS UPPER LIP STARTING YESTERDAY. PT IS ON BACTRIM. Source: patient Exam Limitations: no limitations History of Present Illness Date Seen by Provider: Jan 21, 2019 Time Seen by Provider: 14:55 Initial Comments 23-year-old male presents with a wound on his upper lip. Patient reports that started yesterday is only on Bactrim for. That he is worried that maybe "opened up" that he gets these very often. That he has a condition but he cannot was called but he states his specialist in [place] for further evaluation. Patient denies any fevers chills or other systemic complaints at this time Allergies and Home Medications Allergies Coded Allergies: marijuana (Verified Allergy, Mild, 10/28/14) topiramate (Verified Allergy, Mild, 06/14/15) Home Medications Albuterol Sulfate 1 Puff Puff, 2 PUFF IH Q4H 1 PUFF = 90 MCG Prescribed by: LILLIANA DODSON on 01/24/17 1638 Patient Home Medication List Home Medication List Reviewed: Yes Review of Systems Review of Systems Constitutional: No chills EENTM: see HPI Respiratory: no symptoms reported Cardiovascular: no symptoms reported Skin: see HPI Past Dsnhvln-Wlulsq-Webttq Hx Past Med/Social Hx: Reviewed Nursing Past Med/Soc Hx Patient Social History Alcohol Use: Occasionally Uses Alcohol Beverage of Choice: Beer, Other Recreational Drug Use: No Smoking Status: Current Everyday Smoker Type Used: Cigarettes, Electronic/Vapor 2nd Hand Smoke Exposure: Yes Recent Foreign Travel: No Contact w/Someone Who Travel: No Recent Infectious Disease Expo: No Recent Hopitalizations: No Immunizations Up To Date Tetanus Booster (TDap): Less than 5yrs PED Vaccines UTD: Yes Seasonal Allergies Seasonal Allergies: No Past Medical History Surgeries: Yes (HYDROCELE, multiple procedures for incision and drainage of abscesses) Respiratory: No Cardiac: No Neurological: Yes Headaches /Migraines Reproductive Disorders: No Sexually Transmitted Disease: No Genitourinary: No Gastrointestinal: No Musculoskeletal: No Endocrine: No HEENT: No Cancer: No Psychosocial: Yes Anxiety, Depression Integumentary: Yes (MRSA HX, BACK BROKE OUT SORES) Recent Skin Changes Blood Disorders: No Family Medical History No Pertinent Family Hx Physical Exam Vital Signs Vital Signs - First Documented 01/21/19 14:43 Temp 36.7 Pulse 71 Resp 16 B/P (MAP) 120/79 (93) Pulse Ox 98 O2 Delivery Room Air Capillary Refill : Less Than 3 Seconds General Appearance: no apparent distress HEENT: PERRL/EOMI Cardiovascular: normal peripheral pulses, regular rate, rhythm Respiratory: no respiratory distress Gastrointestinal: No distended Neurologic/Psychiatric: alert, normal mood/affect, oriented x 3 Skin: other (patient with small wounds/swelling(upper lip on the left side. There is no palpable abscess or drainable abscess at this time.) Progress/Results/Core Measures Results/Orders Vital Signs/I&O 01/21/19 14:43 Temp 36.7 Pulse 71 Resp 16 B/P (MAP) 120/79 (93) Pulse Ox 98 O2 Delivery Room Air Blood Pressure Mean: 93 POS Departure Impression Primary Impression: Abscess Disposition: 01 HOME, SELF-CARE Condition: Stable Departure-Patient Inst. Referrals: [facility]/ROSIE (PCP) Primary Care Physician AUDIE STACK (Family) Primary Care Physician Patient Instructions: Folliculitis (DC), Cellulitis (Skin Infection), Adult (DC), Skin Abscess Add. 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 Whenever possible, a diagnosis is given. However, most patients are given an impression based on their history, physical exam, and workup during your brief time in the ER. Information about probable diagnosis and other educational material has been provided. Please take the time to read and understand this information. It is very important that you follow up with a physician as discussed during the visit today. Failure to adhere to your follow-up instructions may lead to severe disability, injury, or so please make sure to keep your appointments or obtain one as requested. Please keep in mind the emergency department is not designed to your primary care or "family doctor" and nonurgent issues are best evaluated by an outpatient physician All discharge instructions reviewed with patient and/or family. Voiced understanding. TRISHA BHARDWAJ DO Jan 21, 2019 14:58 POS
[2019-01-21 15:02] VITALS: BP 120/79
== END 2019-01-21 15:02 | disposition home or self-care (01) ==
LOC: EDUNIT# 14:36 → ER 14:39
DX: K13.0 Diseases of lips (principal); G43.909 Migraine, unspecified, not intractable, without status migrainosus; F41.9 Anxiety disorder, unspecified; F32.9 Major depressive disorder, single episode, unspecified; F17.210 Nicotine dependence, cigarettes, uncomplicated; F17.290 Nicotine dependence, other tobacco product, uncomplicated; Z88.8 Allergy status to other drugs, medicaments and biological substances
CPT/HCPCS: 99282

== ENCOUNTER 2019-02-24 13:41 | Emergency (ER) | payer SELFPAY ==
[~2019-02-24] VITALS: Ht 175 cm; Wt 76.8 kg
[~2019-02-24 13:41] MED LIST changes: +ALPR0.5T7; +SULF-222
--- NOTE | 2019-02-24 14:02 | ED Upper Extremity ---
General Chief Complaint: Upper Extremity Stated Complaint: LEFT WRIST PAIN Nursing Triage Note: COMPLAINS OF LEFT WRIST PAIN X1 WEEK. DENIES INJURY. Nursing Sepsis Screen: No Definite Risk Source: patient Exam Limitations: no limitations History of Present Illness Date Seen by Provider: Feb 24, 2019 Time Seen by Provider: 14:00 Initial Comments To ER with left wrist pain to the dorsal aspect of the left wrist. This began after he was at work last night and tried to catch a falling door. No swelling that he has pain with movement. Wearing a wrist brace his fall. Pain is dorsal midline wrist Onset: just prior to arrival Severity: moderate Pain/Injury Location: left wrist Method of Injury: other Modifying Factors: Worse With Movement Allergies and Home Medications Allergies Coded Allergies: marijuana (Verified Allergy, Mild, 10/28/14) topiramate (Verified Allergy, Mild, 06/14/15) Home Medications No Active Prescriptions or Reported Meds Patient Home Medication List Home Medication List Reviewed: Yes Review of Systems Constitutional: see HPI EENTM: see HPI Respiratory: no symptoms reported Cardiovascular: no symptoms reported Genitourinary: no symptoms reported Musculoskeletal: see HPI Skin: no symptoms reported Psychiatric/Neurological: No Symptoms Reported Past Glowqmd-Ggjzja-Lhgagf Hx Patient Social History Alcohol Use: Denies Use Alcohol Beverage of Choice: Beer, Other Recreational Drug Use: No Smoking Status: Current Everyday Smoker Type Used: Cigarettes, Electronic/Vapor 2nd Hand Smoke Exposure: Yes Recent Foreign Travel: No Contact w/Someone Who Travel: No Recent Infectious Disease Expo: No Recent Hopitalizations: No Immunizations Up To Date Tetanus Booster (TDap): Less than 5yrs PED Vaccines UTD: Yes Seasonal Allergies Seasonal Allergies: No Past Medical History Surgeries: Yes (HYDROCELE, multiple procedures for incision and drainage of abscesses) Respiratory: No Cardiac: No Neurological: Yes Headaches /Migraines Reproductive Disorders: No Sexually Transmitted Disease: No Genitourinary: No Gastrointestinal: No Musculoskeletal: No Endocrine: No HEENT: No Cancer: No Psychosocial: Yes Anxiety, Depression Integumentary: Yes (MRSA HX, BACK BROKE OUT SORES) Recent Skin Changes Blood Disorders: No Family Medical History No Pertinent Family Hx Physical Exam Vital Signs Vital Signs - First Documented 02/24/19 13:48 Temp 36.4 Pulse 65 Resp 16 B/P (MAP) 112/74 (87) Pulse Ox 98 O2 Delivery Room Air Capillary Refill : Less Than 3 Seconds Height, Weight, BMI Height: 5'8.00" Weight: 150lbs. oz. 68.898818gw; 25.00 BMI Method:Stated General Appearance: WD/WN, no apparent distress HEENT: PERRL/EOMI, normal ENT inspection Respiratory: no respiratory distress Shoulder: normal inspection, non-tender Elbow/Forearm: normal inspection, non-tender Wrist: Yes normal inspection; No deformity, No ecchymosis, No limited ROM; Yes pain, Yes soft tissue tenderness (dorsal midline. There is no tenderness to palpation over the anatomic snuffbox.); No swelling Hand: normal inspection, non-tender, Left Neurologic/Psychiatric: alert, normal mood/affect, oriented x 3 Progress/Results/Core Measures Results/Orders My Orders Orders - DEMI HAYNES APRN Wrist, Left, 3 Views Or More (02/24/19 13:56) Vital Signs/I&O 02/24/19 02/24/19 13:48 14:19 Temp 36.4 36.4 Pulse 65 65 Resp 16 16 B/P (MAP) 112/74 (87) 112/74 (87) Pulse Ox 98 98 O2 Delivery Room Air Blood Pressure Mean: 87 Departure Impression Primary Impression: Left wrist sprain Qualified Codes: S63.502A - Unspecified sprain of left wrist, initial encounter Disposition: HOME, SELF-CARE Condition: Against Medical Advice Departure-Patient Inst. Decision time for Depature: 14:01 Referrals: [facility] (PCP) Primary Care Physician AUDIE STACK (Family) Primary Care Physician Patient Instructions: Wrist Sprain (DC) Add. Discharge Instructions: 1. Return to ER for any concerns 2. Follow-up with your doctor next week 3. Wear the brace for the next 3-5 days until the pain subsides. Tylenol and ibuprofen for pain control. All discharge instructions reviewed with patient and/or family. Voiced understanding. Scripts No Active Prescriptions or Reported Meds Work/School Note: Work Release Form Date Seen in the Emergency Department: Feb 24, 2019 Return to Work: Feb 25, 2019 Other Restrictions Listed Below: Left wrist in splint for one week. DEMI HAYNES APRN Feb 24, 2019 14:02
--- NOTE | 2019-02-24 14:11 | Diagnostic Imaging Report ---
INDICATION: Left wrist pain. AP, oblique, and lateral views of the left wrist are obtained and compared to 01/15/2012. No fracture or acute bony abnormality is seen. Joint spaces appear unremarkable. There is no lytic or blastic lesion. IMPRESSION: Negative left wrist. Dictated by: Dictated on workstation # [id number]
[2019-02-24 14:19] VITALS: BP 112/74
== END 2019-02-24 14:19 | disposition home or self-care (01) ==
LOC: EDUNIT# 13:41 → ER 13:43
DX: S63.502A Unspecified sprain of left wrist, initial encounter (principal); F41.9 Anxiety disorder, unspecified; F32.9 Major depressive disorder, single episode, unspecified; G43.909 Migraine, unspecified, not intractable, without status migrainosus; F17.210 Nicotine dependence, cigarettes, uncomplicated; F17.290 Nicotine dependence, other tobacco product, uncomplicated; Z88.8 Allergy status to other drugs, medicaments and biological substances; W20.8XXA Other cause of strike by thrown, projected or falling object, initial encounter; Y92.59 Other trade areas as the place of occurrence of the external cause
CPT/HCPCS: 73110

== ENCOUNTER 2021-04-17 16:27 | Emergency (ER) | payer SELFPAY ==
[~2021-04-17] VITALS: Ht 172 cm; Wt 77.0 kg
[~2021-04-17 16:27] MED LIST changes: -SULF1TAB35 PO; +SULF1TAB38 PO
[2021-04-17] MEDS ORDERED: METH-732 PO (17:06)
[2021-04-17] MEDS ORDERED: TRAM-42 PO (17:07)
--- NOTE | 2021-04-17 17:43 | Diagnostic Imaging Report ---
INDICATION: Cough and back pain. TIME OF EXAM: 05:29 p.m. COMPARISON: Correlation is made with prior chest from 01/24/2017. FINDINGS: The heart size is normal. The pulmonary vascularity is unremarkable. The lungs are clear. No infiltrate, effusion or pneumothorax is detected. IMPRESSION: No acute cardiopulmonary process is detected. Dictated by: Dictated on workstation # [id number]
[2021-04-17 17:47] VITALS: BP 112/73
--- NOTE | 2021-04-17 18:29 | ED Back Pain ---
General Chief Complaint: Back Problems Stated Complaint: BACK PAIN Nursing Triage Note: PT CO OF MID BACK PAIN STARTED YESTERDAY AFTER HANGING PANELING ON FRIDAY. Source of Information: Patient Exam Limitations: No Limitations History of Present Illness Date Seen by Provider: Apr 17, 2021 Time Seen by Provider: 17:00 Initial Comments hanTo ER by private vehicle with reports of right posterior chest wall pain. This originates from the base of the right side of his neck down to the mid back on the right side only. This began after hanging paneling yesterday. He awakened without pain but had onset of pain during the day. No particular injury or certain movement that seems to have caused it. He had difficulty sleeping last night due to pain. Laying on his left side seems to make the pain better. Any movement makes the pain worse. Also taking a deep breath makes the pain worse but he denies any shortness of breath or cough or fever. He took ibuprofen at 1 PM. Location: C-Spine, Paraspinous Muscles, T-Spine Timing/Duration: 1-2 Days Severity: Moderate Pain/Injury Location: Back Modifying Factors: Worse With Movement Allergies and Home Medications Allergies Coded Allergies: marijuana (Verified Allergy, Mild, 10/28/14) topiramate (Verified Allergy, Mild, 06/14/15) Patient Home Medication List Home Medication List Reviewed: Yes Methocarbamol (Methocarbamol) 750 Mg Tablet, 750 MG PO Q6-8HR Prescribed by: DEMI HAYNES on 04/17/211705 Tramadol HCl (Ultram) 50 Mg Tablet, 50 MG PO Q6H PRN for PAIN-MILD (1-4) Prescribed by: DEMI HAYNES on 04/17/211707 Review of Systems Constitutional: see HPI EENTM: see HPI Respiratory: no symptoms reported Cardiovascular: no symptoms reported Genitourinary: no symptoms reported Musculoskeletal: see HPI, back pain Skin: no symptoms reported Psychiatric/Neurological: No Symptoms Reported Past Zjuxsxu-Zentlx-Vfenzo Hx Patient Social History Tobacco Use?: No Substance use?: No Alcohol Use?: Yes Alcohol Frequency: Once in a while Pt feels they are or have been: No Immunizations Up To Date Tetanus Booster (TDap): Less than 5yrs PED Vaccines UTD: Yes Seasonal Allergies Seasonal Allergies: No Past Medical History Surgeries: Yes (HYDROCELE, multiple procedures for incision and drainage of abscesses) Respiratory: No Cardiac: No Neurological: Yes Headaches /Migraines Reproductive Disorders: No Sexually Transmitted Disease: No Genitourinary: No Gastrointestinal: No Musculoskeletal: No Endocrine: No HEENT: No Cancer: No Psychosocial: Yes Anxiety, Depression Integumentary: Yes (MRSA HX, BACK BROKE OUT SORES) Recent Skin Changes Blood Disorders: No Family Medical History No Pertinent Family Hx Physical Exam Vital Signs Vital Signs - First Documented 04/17/21 16:32 Temp 36.7 Pulse 85 Resp 18 B/P (MAP) 112/73 (86) Pulse Ox 97 Capillary Refill : Less Than 3 Seconds Height, Weight, BMI Height: 5'8.00" Weight: 150lbs. oz. 68.656070bt; 26.00 BMI Method:Stated General Appearance: No Apparent Distress, WD/WN Neck: Full Range of Motion, Normal Inspection Respiratory: No Accessory Muscle Use, No Respiratory Distress Gastrointestinal: Non Tender, Soft Extremity: Normal Capillary Refill, Normal Inspection Neurologic/Psychiatric: Alert, Oriented x3 Skin: Normal Color, Warm/Dry Progress/Results/Core Measures Results/Orders My Orders Orders - DEMI HAYNES APRN Tramadol Tablet (Ultram Tablet) (04/17/21 17:00) Chest Pa/Lat (2 View) (04/17/21 16:59) Medications Given in ED Current Medications Medications Dose Ordered Sig/Fernando Route Start Time Stop Time Status Last Admin Dose Admin Tramadol HCl 50 mg ONCE ONCE PO 04/17/21 17:00 04/17/21 17:01 DC 04/17/21 17:06 50 MG Vital Signs/I&O 04/17/21 16:32 Temp 36.7 Pulse 85 Resp 18 B/P (MAP) 112/73 (86) Pulse Ox 97 Blood Pressure Mean: 86 Departure Communication (Admissions) Family Conversation NAME: KWABENA HUFFMAN MED REC#: [id number] PT STATUS: REG ER : 1995 PHYSICIAN: DEMI HAYNES APRN ADMIT DATE: 04/17/21/ER Draft Date of Exam:04/17/21 CHEST PA/LAT (2 VIEW) INDICATION: Cough and back pain. TIME OF EXAM: 05:29 p.m. COMPARISON: Correlation is made with prior chest from 01/24/2017. FINDINGS: The heart size is normal. The pulmonary vascularity is unremarkable. The lungs are clear. No infiltrate, effusion or pneumothorax is detected. IMPRESSION: No acute cardiopulmonary process is detected. Dictated on workstation # [id number] Dict: 04/17/211739 Trans: 04/17/211742 [id number] [id number] Interpreted by: DINH CHAVIS MD Electronically signed by: See diagram, to the affected area there are a few palpable nodules that are not infected or inflamed there is no erythema. These likely represent sebaceous cy sts. Nothing concerning for herpes zoster. Impression Primary Impression: Trapezius muscle strain Disposition: HOME, SELF-CARE Condition: Stable Departure-Patient Inst. Decision time for Depature: 17:04 Referrals: [facility] (PCP/Family) Primary Care Physician Patient Instructions: Muscle Strain ED Add. Discharge Instructions: 1. Muscle relaxers in addition to 3 ibuprofen every 8 hours. If pain persists then follow-up with primary care to discuss scheduling an MRI to evaluate the discs in the neck and upper back. This seems most likely to represent a trapezius muscle strain given that it started while eating some paneling. If you notice any rash or very tender bumps that pop up then we would need to consider something like shingles. Either way we will start by treating this as a muscle strain. Return to ER for any worsening follow-up with your doctor next week. All discharge instructions reviewed with patient and/or family. Voiced understanding. Scripts Tramadol HCl (Ultram) 50 Mg Tablet 50 MG PO Q6H PRN for PAIN-MILD (1-4), #10 TAB Prov: DEMI HAYNES APRN 04/17/21 Methocarbamol (Methocarbamol) 750 Mg Tablet 750 MG PO Q6-8HR for Back Pain, #20 TAB Prov: DEMI HAYNES APRN 04/17/21 Work/School Note: Work Release Form Date Seen in the Emergency Department: Apr 17, 2021 Return to Work: Apr 19, 2021 Images Torso/Trunk 1 - Other-See Progress Note DEMI HAYNES APRN Apr 17, 2021 17:06
== END 2021-04-17 17:47 | disposition home or self-care (01) ==
LOC: EDUNIT# 16:27 → ER 16:29
DX: S46.911A Strain of unspecified muscle, fascia and tendon at shoulder and upper arm level, right arm, initial encounter (principal); W20.8XXA Other cause of strike by thrown, projected or falling object, initial encounter
CPT/HCPCS: 71046

== ENCOUNTER 2021-04-23 19:14 | Emergency (ER) | payer SELFPAY ==
[~2021-04-23 19:14] MED LIST changes: +METH-732 PO; +TRAM-42 PO
[2021-04-23] MEDS ORDERED: PRD20T PO (20:05)
--- NOTE | 2021-04-23 20:05 | ED Back Pain ---
General Chief Complaint: Back Problems Stated Complaint: BACK PAIN Nursing Triage Note: PT AMB TO FT 3 WITH C/O LOW BACK PAIN THAT STARTED ABOUT 2 HOURS AGO. PT WAS SEEN FOR BACK PAIN LAST WEEK BUT HE STATES THIS IS DIFFERENT. PT HAS NOT FOLLOWED UP WITH A DR OR TAKEN ANYTHING FOR THE PAIN TODAY Source of Information: Patient Exam Limitations: No Limitations History of Present Illness Date Seen by Provider: Apr 23, 2021 Time Seen by Provider: 20:01 Initial Comments To ER with midline low back pain that radiates down the right lateral thigh. Started about 4 hours ago while sitting at a desk. No injury. No fever no chills no trauma. No personal history of cancer. No loss of bowel or bladder control. No loss of sensation of genitals. No IV drug use. Location: Lumbar Spine Timing/Duration: 4-6 Hours Severity: Moderate Method of Injury: Unknown Associated Symptoms: lower back pain Allergies and Home Medications Allergies Coded Allergies: marijuana (Verified Allergy, Mild, 10/28/14) topiramate (Verified Allergy, Mild, 06/14/15) Patient Home Medication List Home Medication List Reviewed: Yes Methocarbamol (Methocarbamol) 750 Mg Tablet, 750 MG PO Q6-8HR Prescribed by: DEMI HAYNES on 04/17/21 170 Tramadol HCl (Ultram) 50 Mg Tablet, 50 MG PO Q6H PRN for PAIN-MILD (1-4) Prescribed by: DEMI HAYNES on 04/17/21 170 Review of Systems Constitutional: see HPI EENTM: see HPI Respiratory: no symptoms reported Cardiovascular: no symptoms reported Genitourinary: no symptoms reported Musculoskeletal: see HPI, back pain Skin: no symptoms reported Psychiatric/Neurological: No Symptoms Reported Past Mmelxka-Thodlm-Oiiyby Hx Patient Social History Use of E-Cig and/or Vaping dev: Yes E-Cig or Vaping type used: Nicotine Use of E-Cig and/or Vaping Dewayne: Current Everyday User Substance use?: No Alcohol Use?: Yes Alcohol type: Beer Alcohol Frequency: Once in a while Pt feels they are or have been: No Immunizations Up To Date Tetanus Booster (TDap): Less than 5yrs PED Vaccines UTD: Yes Seasonal Allergies Seasonal Allergies: No Past Medical History Surgeries: Yes (HYDROCELE, multiple procedures for incision and drainage of abscesses) Respiratory: No Cardiac: No Neurological: Yes Headaches /Migraines Reproductive Disorders: No Sexually Transmitted Disease: No Genitourinary: No Gastrointestinal: No Musculoskeletal: No Endocrine: No HEENT: No Cancer: No Psychosocial: Yes Anxiety, Depression Integumentary: Yes (MRSA HX, BACK BROKE OUT SORES) Recent Skin Changes Blood Disorders: No Family Medical History No Pertinent Family Hx Physical Exam Vital Signs Vital Signs - First Documented 04/23/21 19:46 Temp 36.4 Pulse 72 Resp 16 B/P (MAP) 133/80 (97) Capillary Refill : Height, Weight, BMI Height: 5'8.00" Weight: 150lbs. oz. 68.974076gx; 26.00 BMI Method:Stated General Appearance: No Apparent Distress, WD/WN Neck: Full Range of Motion, Normal Inspection Respiratory: No Accessory Muscle Use, No Respiratory Distress Gastrointestinal: Normal Bowel Sounds, Non Tender, Soft Extremity: Normal Capillary Refill, Normal Inspection Neurologic/Psychiatric: Alert, Oriented x3 Progress/Results/Core Measures Results/Orders Vital Signs/I&O 04/23/21 19:46 Temp 36.4 Pulse 72 Resp 16 B/P (MAP) 133/80 (97) Blood Pressure Mean: 97 Departure Impression Primary Impression: Back pain Disposition: 01 HOME, SELF-CARE Condition: Stable Departure-Patient Inst. Decision time for Depature: 20:04 Referrals: [facility] (PCP/Family) Primary Care Physician Patient Instructions: Low Back Pain (DC) Scripts Prednisone (Prednisone) 20 Mg Tab 40 MG PO DAILY, #6 TAB 0 Refills Prov: DEMI HAYNES APRN 04/23/21 Work/School Note: Work Release Form Date Seen in the Emergency Department: Apr 23, 2021 DEMI AHYNES APRN Apr 23, 2021 20:05
[2021-04-23] MEDS ORDERED: IBUPROFEN 800 MG (MOTRIN) TAB PO ONE (20:15)
[2021-04-23 20:28] VITALS: BP 130/80
== END 2021-04-23 20:29 | disposition home or self-care (01) ==
LOC: EDUNIT# 19:14 → ER 19:15
DX: M54.50 Low back pain, unspecified (principal); F17.290 Nicotine dependence, other tobacco product, uncomplicated
CPT/HCPCS: 99283